=== PATIENT | male | born 1950 | race Caucasian/White ===

== ENCOUNTER 2023-03-01 17:02 | Emergency (ER) | payer OTHER ==
--- OUTSIDE RECORDS SUMMARY | 2023-03-01 17:07 | XMS REPORT | Continuity of Care Document ---
:1950 Author Organization [facility] t Address [address] [place] [id number] Care Team Providers Name Role Phone SHERRY COLINDRES Primary Care Physician Unavailable Ayaan GARCIA, Gage Okeefe Attending Clinician Unavailable LIZZ PARTIDA Attending Clinician Unavailable Doctor Unassigned, Short Attending Clinician Unavailable LUNA ORTEGA Attending Clinician Unavailable MELODY VILLA Attending Clinician Unavailable Melody Villa MD Attending Clinician Lizz Partida MD Attending Clinician 1, [facility] Bed Attending Clinician Unavailable Juan Pablo Adams MD Attending Clinician JUAN PABLO ADAMS Attending Clinician Unavailable JUAN PABLO ADAMS Attending Clinician Unavailable 2, [facility] Attending Clinician Unavailable RADIOLOGY Attending Clinician Unavailable Radiology Attending Clinician Unavailable Pob, [facility] Main Attending Clinician Unavailable Sherry Colindres DO Attending Clinician 1, [facility] Attending Clinician Unavailable AMELIE ERNANDEZ Attending Clinician Unavailable , [facility] Room 1 - Attending Clinician Unavailable Luna Ortega DO Attending Clinician Pankaj Stockton MD Attending Clinician PANKAJ STOCKTON Attending Clinician Unavailable Prachi Butcher Attending Clinician Yuval CREWS, Andres Attending Clinician Danilo Danielle Anavella Attending Clinician Jodi Headley Attending Clinician LUNA ORTEGA Admitting Clinician Unavailable MELODY IVLLA Mervat Admitting Clinician Unavailable Frantz Danielle Anav Admitting Clinician Unavailable Yuval CREWS, Andres Admitting Clinician Payers Payer Name Policy Type Policy Number Effective Date Expiration Date S sonali LOPEZ/[employer] [id number] 2019 MEDICARE ADVANTAGE 00:00:00 nDreams [id number] (MEDICARE 00:00:00 REPLACEMENT HMO) [employer] MEDICARE [id number] 2020 00:00:00 [id number] Problems Condition Condition Condition Status Onset Resolution Last Treating Co mments Source Name Details Category Date Date Treatment Clinician Date Stage 3 Stage 3 Disease Active Univers chronic chronic 4- ity of kidney kidney 00:00: [place] disease, disease, 00 Medica l unspecifie unspecifie Br anch d whether d whether stage 3a stage 3a or 3b CKD or 3b CKD PAD PAD Disease Active Univers (periphera (periphera 5-04 it y of l artery l artery 00:00: [place] disease) disease) 00 Medica l Branch Chronic Chronic Disease Active Univers heart heart 5-04 ity of failure failure 00:00: [place] with with 00 Medical preserved preserved Bran ch ejection ejection fraction fraction CAD CAD Disease Active Univers (coronary (coronary 8-13 ity of artery artery 00:00: [place] disease) disease) 00 Medica l of artery of artery Bran ch bypass bypass graft graft Blood in Blood in Disease Active Overview: Un alan stool stool 5-23 Formattin ity of 00:00: g of this 00 note Medical might be Branch different from the original. Added automatic ally from request for surgery [id number] Esophageal Esophageal Disease Active Overview : Univers reflux reflux 5-13 Formattin ity of 00:00: g of this 00 note Medical might be Branch different from the original. Added automatic ally from request for surgery [id number] Rectal Rectal Disease Active Overview: Univer s bleeding bleeding 5-13 Formattin ity of 00:00: g of this 00 note Medical might be Branch different from the original. Added automatic ally from request for surgery [id number] Frequent Frequent Disease Active Unive rs PVCs PVCs - ity of 00:00: [place] 00 Medical Branch Coronary Coronary Disease Active Unive rs artery artery - ity of disease disease 00:00: [place] involving involving [address] [facility] coronary coronary artery of artery [facility] heart with heart with angina angina pectoris pectoris Diverticul Diverticul Disease Active U nivers itis itis 01-23 ity of 00:00: [place] 00 Medical Branch NSVT NSVT Disease Active Univers (nonsustai (nonsustai 01-23 it y of rajwinder rajwinder 00:00: [place] ventricula ventricula 00 Me dical r r Branch tachycardi tachycardi a) a) Frequent Frequent Disease Active Unive rs PVCs PVCs 01-23 ity of 00:00: [place] 00 Medical Branch Essential Essential Disease Active Uni vers hypertensi hypertensi - it y of on on 00:00: [place] Medical Branch Bradycardi Bradycardi Disease Active U nivers a a - ity of 00:00: [place] 00 Medical Branch Coronary Coronary Disease Active Unive rs artery artery 01-23 ity of disease disease 00:00: [place] involving involving [address] [facility] coronary coronary artery of artery [facility] heart with heart with angina angina pectoris pectoris History of History of Disease Active U nivers CVA CVA 1-01 ity of (cerebrova [place]cerebrova [place] scular scular 00 Medical accident) accident) Bran ch HTN HTN Disease Active Univers (hypertens (hypertens it y of ion) ion) [facility] Diabetes Diabetes Disease Active Unive rs mellitus mellitus ity of [facility] HLD HLD Disease Active Univers (hyperlipi (hyperlipi it y of demia) demia) [facility] Atrial Atrial Disease Active Univers fibrillati fibrillati it y of on on [facility] Allergies, Adverse Reactions, Alerts Allergy Allergy Status Severity Reaction(s) Onset Inactive Treating Comm ents Source Name Type Date Date Clinician NO KNOWN Drug Active Univers ALLERGIE Class ity of S [facility] Social History Social Habit Start Date Stop Date Quantity Comments Source History of tobacco Cigarette Smoker University of use [facility] Alcohol intake 2022-06-25 2022-06-25 Current University of 00:00:00 00:00:00 non-drinker of [facility] alcohol [place] (finding) Exposure to 2022-05-15 2022-05-25 Not sure [facility] SARS-CoV-2 (event) 00:00:00 23:31:00 [facility] Cigarettes smoked 2019-04-03 2019-04-03 [facility] ity of current (pack per 00:00:00 00:00:00 [facility] [place] [facility] ) - Reported Branch Cigarette 2019-04-03 2019-04-03 University of pack-years 00:00:00 00:00:00 [facility] Tobacco use and 2019-04-03 2019-04-03 Smokeless Universit y of exposure 00:00:00 00:00:00 tobacco [facility]user [facility] Sex Assigned At [birth year] Universit y of 00:00:00 00:00:00 [facility] Smoking Status Start Date Stop Date Source Ex-smoker 2019-04-03 00:00:00 2019-04-03 00:00:00 Universi ty [facility] Medications Ordered Filled Start Stop Current Ordering Indication Dosage Frequency Signature Comments Components Source Medication Medication Date Date Medication? Clinician (SIG) Name Name iopamidol 2021- No [id number] 65mL 65 mL, Univers (ISOVUE 05-26 Intravenou ity o f 370-500 mL) 08:15: 08:15 s, ONCE, 1 [place] injection 00 :00 dose, On Medica l 65 mL 05/26/22 Branch at 0315, Routine amoxicillin Yes [id number] 875mg Take 1 Univers 875 mg 9- tablet by ity of tablet 00:00: mouth in [place] 00 the Medical morning Branch and 1 tablet in the evening. amoxicillin Yes [id number] 875mg Take 1 Univers 875 mg 9- tablet by ity of tablet 00:00: mouth in [place] 00 the Medical morning Branch and 1 tablet in the evening. amoxicillin 2022-0 Yes [id number] 875mg Take 1 Univers 875 mg 9-02 tablet by ity of tablet 00:00: mouth in [place] 00 the Medical morning Branch and 1 tablet in the evening. amoxicillin 2022-0 Yes [id number] 875mg Take 1 Univers 875 mg 9-02 tablet by ity of tablet 00:00: mouth in [place] 00 the Medical morning Branch and 1 tablet in the evening. amoxicillin 2022-0 Yes [id number] 875mg Take 1 Univers 875 mg 9-02 tablet by ity of tablet 00:00: mouth in [place] 00 the Medical morning Branch and 1 tablet in the evening. furosemide 2022-0 Yes 20mg Take 1 Unive rs 20 mg 3-14 tablet by ity of tablet 00:00: mouth [place] 00 daily. Medical Branch furosemide 2022-0 Yes 20mg Take 1 Unive rs 20 mg 3-14 tablet by ity of tablet 00:00: mouth [place] 00 daily. Medical Branch furosemide 2022-0 Yes 20mg Take 1 Unive rs 20 mg 3-14 tablet by ity of tablet 00:00: mouth [place] 00 daily. Medical Branch furosemide 2022-0 Yes 20mg Take 1 Unive rs 20 mg 3-14 tablet by ity of tablet 00:00: mouth [place] 00 daily. Medical Branch furosemide 2022-0 Yes 20mg Take 1 Unive rs 20 mg 3-14 tablet by ity of tablet 00:00: mouth [place] 00 daily. Medical Branch furosemide 2022-0 Yes 20mg Take 1 Unive rs 20 mg 3-14 tablet by ity of tablet 00:00: mouth [place] 00 daily. Medical Branch furosemide 2022-0 Yes 20mg Take 1 Unive rs 20 mg 3-14 tablet by ity of tablet 00:00: mouth [place] 00 daily. Medical Branch furosemide 2022-0 Yes 20mg Take 1 Unive rs 20 mg 3-14 tablet by ity of tablet 00:00: mouth [place] 00 daily. Medical Branch furosemide 2022-0 Yes 20mg Take 1 Unive rs 20 mg 3-14 tablet by ity of tablet 00:00: mouth [place] 00 daily. Medical Branch furosemide 2022-0 Yes 20mg Take 1 Unive rs 20 mg 3-14 tablet by ity of tablet 00:00: mouth [place] 00 daily. Medical Branch furosemide 2022-0 Yes 20mg Take 1 Unive rs 20 mg 3-14 tablet by ity of tablet 00:00: mouth [place] 00 daily. Medical Branch furosemide 2022-0 Yes 20mg Take 1 Unive rs 20 mg 3-14 tablet by ity of tablet 00:00: mouth [place] 00 daily. Medical Branch furosemide 2022-0 Yes 20mg Take 1 Unive rs 20 mg 3-14 tablet by ity of tablet 00:00: mouth [place] 00 daily. Medical Branch furosemide 2022-0 Yes 20mg Take 1 Unive rs 20 mg 3-14 tablet by ity of tablet 00:00: mouth [place] 00 daily. Medical Branch aMILoride 5 2020-0 Yes 5mg Take 1 Univ ers mg tablet 5-05 tablet by ity o f 00:00: mouth [place] 00 daily. Medical Branch aMILoride 5 2020-0 Yes 5mg Take 1 Univ ers mg tablet 5-05 tablet by ity o f 00:00: mouth [place] 00 daily. Medical Branch aMILoride 5 2020-0 Yes 5mg Take 1 Univ ers mg tablet 5-05 tablet by ity o f 00:00: mouth [place] 00 daily. Medical Branch aMILoride 5 2020-0 Yes 5mg Take 1 Univ ers mg tablet 5-05 tablet by ity o f 00:00: mouth [place] 00 daily. Medical Branch aMILoride 5 2020-0 Yes 5mg Take 1 Univ ers mg tablet 5-05 tablet by ity o f 00:00: mouth [place] 00 daily. Medical Branch aMILoride 5 2020-0 Yes 5mg Take 1 Univ ers mg tablet 5-05 tablet by ity o f 00:00: mouth [place] 00 daily. Medical Branch aMILoride 5 2020-0 Yes 5mg Take 1 Univ ers mg tablet 5-05 tablet by ity o f 00:00: mouth [place] 00 daily. Medical Branch aMILoride 5 2020-0 Yes 5mg Take 1 Univ ers mg tablet 5-05 tablet by ity o f 00:00: mouth [place] 00 daily. Medical Branch aMILoride 5 1-0 Yes 5mg Take 1 Univ ers mg tablet 5-05 tablet by ity o f 00:00: mouth [place] 00 daily. Medical Branch aMILoride 5 2020-0 Yes 5mg Take 1 Univ ers mg tablet 5-05 tablet by ity o f 00:00: mouth [place] 00 daily. Medical Branch aMILoride 5 Yes 5mg Take 1 Univ ers mg tablet 5-05 tablet by ity o f 00:00: mouth [place] 00 daily. Medical Branch aMILoride 5 Yes 5mg Take 1 Univ ers mg tablet 5-05 tablet by ity o f 00:00: mouth 00 daily. Medical Branch aMILoride 5 Yes 5mg Take 1 Univ ers mg tablet 5-05 tablet by ity o f 00:00: mouth [place] 00 daily. Medical Branch aMILoride 5 Yes 5mg Take 1 Univ ers mg tablet 5-05 tablet by ity o f 00:00: mouth [place] 00 daily. Medical Branch fluticasone Yes 1{spray Use 1 Un aaln 50 5-04 } Ubly in ity of mcg/actuati 11:09: each [place] on nasal 43 nostril Medical spray daily. Branch glipiZIDE 5 Yes 5mg Take 5 mg U nivers mg tablet 5-04 by mouth ity of 11:09: daily. [place] [address] Medical Branch omeprazole Yes 40mg Take 40 mg U nivers 40 mg 5-04 by mouth ity of capsule 11:09: daily. [place] [address] Medical Branch sucralfate Yes 1g Take 1 g Uni vers 1 gram 5-04 by mouth ity of tablet 11:09: before [place] [address] meals and Medical at [place] bedtime. traZODONE Yes 50mg Take 50 mg Un alan 50 mg 5-04 by mouth ity of tablet 11:09: at [place] [address] bedtime. Medical Branch dulaglutide Yes inject Univ ers (TRULICITY) 5-04 under the ity of 0.75 mg/0.5 11:09: skin. [facility] DOCUS[facility] Yes Take by Univer s SODIUM ORAL 5-04 mouth ity of 11:09: daily. [place] [address] Medical Branch aspirin 81 Yes 81mg Take 81 mg U nivers mg chewable 5-04 by mouth ity of tablet 11:09: daily. [place] [address] Medical Branch lidocain/me Yes 2{patch Apply 2 Univers -salicyl/ca 5-04 } Patches to it y of ps/menth 11:09: area(s) [place] ( daily. Medical MEDX-PATCH Branch WITH LIDOCAINE TOPICAL) fluticasone Yes 1{spray Use 1 Un alan 50 5-04 } Ubly in ity of mcg/actuati 11:09: each [place] on nasal 43 nostril Medical spray daily. Branch glipiZIDE 5 Yes 5mg Take 5 mg U nivers mg tablet 5-04 by mouth ity of 11:09: daily. [place] [address] Medical Branch omeprazole Yes 40mg Take 40 mg U nivers 40 mg 5-04 by mouth ity of capsule 11:09: daily. [place] [address] Medical Branch sucralfate Yes 1g Take 1 g Uni vers 1 gram 5-04 by mouth ity of tablet 11:09: before [place] [address] meals and Medical at [place] bedtime. traZODONE Yes 50mg Take 50 mg Un alan 50 mg 5-04 by mouth ity of tablet 11:09: at [place] [address] bedtime. Medical Branch dulaglutide Yes inject Univ ers (TRULICITY) 5-04 under the ity of 0.75 mg/0.5 11:09: skin. [facility] DOCUSATE Yes Take by Univer s SODIUM ORAL 5-04 mouth ity of 11:09: daily. [place] [address] Medical Branch aspirin 81 Yes 81mg Take 81 mg U nivers mg chewable 5-04 by mouth ity of tablet 11:09: daily. [place] [address] Medical [place] lidocain/me Yes 2{patch Apply 2 Univers -salicyl/ca 5-04 } Patches to it y of ps/menth 11:09: area(s) [place] ( daily. Medical MEDX-PATCH Branch WITH LIDOCAINE TOPICAL) fluticasone Yes 1{spray Use 1 Un alan 50 5-04 } Ubly in ity of mcg/actuati 11:09: each [place] on nasal 43 nostril Medical spray daily. Branch glipiZIDE 5 Yes 5mg Take 5 mg U nivers mg tablet 5-04 by mouth ity of 11:09: daily. [place] [address] Medical [place] omeprazole 0 Yes 40mg Take 40 mg U nivers 40 mg 5-04 by mouth ity of capsule 11:09: daily. [place] [address] Medical [place] sucralfate Yes 1g Take 1 g Uni vers 1 gram 5-04 by mouth ity of tablet 11:09: before [place] [address] meals and Medical at Branch bedtime. traZODONE Yes 50mg Take 50 mg Un alan 50 mg 5-04 by mouth ity of tablet 11:09: at [place] [address] bedtime. Medical Branch dulaglutide Yes inject Univ ers (TRULICITY) 5-04 under the ity of 0.75 mg/0.5 11:09: skin. [facility] DOCUSATE Yes Take by Univer s SODIUM ORAL 5-04 mouth ity of 11:09: daily. [address] aspirin 81 0 Yes 81mg Take 81 mg U nivers mg chewable 5-04 by mouth ity of tablet 11:09: daily. [address] lidocain/me Yes 2{patch Apply 2 Univers -salicyl/ca 5-04 } Patches to it y of ps/menth 11:09: area(s) [place] ([facility] daily. Medical MEDX-PATCH Branch WITH LIDOCAINE TOPICAL) fluticasone Yes 1{spray Use 1 Un alan 50 5-04 } Ubly in ity of mcg/actuati 11:09: each [place] on nasal 43 nostril Medical spray daily. Branch glipiZIDE 5 Yes 5mg Take 5 mg U nivers mg tablet 5-04 by mouth ity of 11:09: daily. [address] omeprazole Yes 40mg Take 40 mg U nivers 40 mg 5-04 by mouth ity of capsule 11:09: daily. [address] sucralfate Yes 1g Take 1 g Uni vers 1 gram 5-04 by mouth ity of tablet 11:09: before [place] [address] meals and Medical at [place] bedtime. traZODONE Yes 50mg Take 50 mg Un alan 50 mg 5-04 by mouth ity of tablet 11:09: at [place] [address] bedtime. Medical Branch dulaglutide Yes inject Univ ers (TRULICITY) 5-04 under the ity of 0.75 mg/0.5 11:09: skin. [facility] DOCUSATE Yes Take by Univer s SODIUM ORAL 5-04 mouth ity of 11:09: daily. [address] Branch aspirin 81 Yes 81mg Take 81 mg U nivers mg chewable 5-04 by mouth ity of tablet 11:09: daily. [address] Branch lidocain/me Yes 2{patch Apply 2 Univers -salicyl/ca 5-04 } Patches to it y of ps/menth 11:09: area(s) [place] ( daily. Medical MEDX-PATCH Branch WITH LIDOCAINE TOPICAL) fluticasone Yes 1{spray Use 1 Un alan 50 5-04 } Ubly in ity of mcg/actuati 11:09: each [place] on nasal 43 nostril Medical spray daily. Branch glipiZIDE 5 Yes 5mg Take 5 mg U nivers mg tablet 5-04 by mouth ity of 11:09: daily. [address] omeprazole Yes 40mg Take 40 mg U nivers 40 mg 5-04 by mouth ity of capsule 11:09: daily. [address] Branch sucralfate Yes 1g Take 1 g Uni vers 1 gram 5-04 by mouth ity of tablet 11:09: before [place] [address] meals and Medical at [place] bedtime. traZODONE Yes 50mg Take 50 mg Un alan 50 mg 5-04 by mouth ity of tablet 11:09: at [place] [address] bedtime. Medical Branch dulaglutide Yes inject Univ ers (TRULICITY) 5-04 under the ity of 0.75 mg/0.5 11:09: skin. [place] [address] Medical Branch DOCUSATE Yes Take by Univer s SODIUM ORAL 5-04 mouth ity of 11:09: daily. [address] Branch aspirin 81 Yes 81mg Take 81 mg U nivers mg chewable 5-04 by mouth ity of tablet 11:09: daily. [address] lidocain/me Yes 2{patch Apply 2 Univers -salicyl/ca 5-04 } Patches to it y of ps/menth 11:09: area(s) [place] ( daily. Medical MEDX-PATCH Branch WITH LIDOCAINE TOPICAL) fluticasone Yes 1{spray Use 1 Un alan 50 5-04 } Ubly in ity of mcg/actuati 11:09: each [place] on nasal 43 nostril Medical spray daily. Branch glipiZIDE 5 Yes 5mg Take 5 mg U nivers mg tablet 5-04 by mouth ity of 11:09: daily. [place] [address] Medical Branch omeprazole 0 Yes 40mg Take 40 mg U nivers 40 mg 5-04 by mouth ity of capsule 11:09: daily. [place] [address] Medical Branch sucralfate Yes 1g Take 1 g Uni vers 1 gram 5-04 by mouth ity of tablet 11:09: before [place] [address] meals and Medical at [place] bedtime. traZODONE Yes 50mg Take 50 mg Un alan 50 mg 5-04 by mouth ity of tablet 11:09: at [place] [address] bedtime. Medical Branch dulaglutide Yes inject Univ ers (TRULICITY) 5-04 under the ity of 0.75 mg/0.5 11:09: skin. [facility] DOCUSATE Yes Take by Univer s SODIUM ORAL 5-04 mouth ity of 11:09: daily. [address] aspirin 81 Yes 81mg Take 81 mg U nivers mg chewable 5-04 by mouth ity of tablet 11:09: daily. [address] lidocain/me Yes 2{patch Apply 2 Univers -salicyl/ca 5-04 } Patches to it y of ps/menth 11:09: area(s) [place] ( daily. Medical MEDX-PATCH Branch WITH LIDOCAINE TOPICAL) fluticasone Yes 1{spray Use 1 Un alan 50 5-04 } Ubly in ity of mcg/actuati 11:09: each [place] on nasal 43 nostril Medical spray daily. Branch glipiZIDE 5 Yes 5mg Take 5 mg U nivers mg tablet 5-04 by mouth ity of 11:09: daily. [address] omeprazole 0 Yes 40mg Take 40 mg U nivers 40 mg 5-04 by mouth ity of capsule 11:09: daily. [address] sucralfate Yes 1g Take 1 g Uni vers 1 gram 5-04 by mouth ity of tablet 11:09: before [place] [address] meals and Medical at [place] bedtime. traZODONE Yes 50mg Take 50 mg Un alan 50 mg 5-04 by mouth ity of tablet 11:09: at [place] [address] bedtime. Medical Branch dulaglutide Yes inject Univ ers (TRULICITY) 5-04 under the ity of 0.75 mg/0.5 11:09: skin. [facility] DOCUSATE Yes Take by Univer s SODIUM ORAL 5-04 mouth ity of 11:09: daily. [address] aspirin 81 Yes 81mg Take 81 mg U nivers mg chewable 5-04 by mouth ity of tablet 11:09: daily. [address] lidocain/me Yes 2{patch Apply 2 Univers -salicyl/ca 5-04 } Patches to it y of ps/menth 11:09: area(s) [place] ( daily. Medical MEDX-PATCH Branch WITH LIDOCAINE TOPICAL) fluticasone Yes 1{spray Use 1 Un alan 50 5-04 } Ubly in ity of mcg/actuati 11:09: each [place] on nasal 43 nostril Medical spray daily. Branch glipiZIDE 5 Yes 5mg Take 5 mg U nivers mg tablet 5-04 by mouth ity of 11:09: daily. [address] omeprazole Yes 40mg Take 40 mg U nivers 40 mg 5-04 by mouth ity of capsule 11:09: daily. [address] sucralfate Yes 1g Take 1 g Uni vers 1 gram 5-04 by mouth ity of tablet 11:09: before [place] [address] meals and Medical at [place] bedtime. traZODONE Yes 50mg Take 50 mg Un alan 50 mg 5-04 by mouth ity of tablet 11:09: at [place] [address] bedtime. Medical Branch dulaglutide Yes inject Univ ers (TRULICITY) 5-04 under the ity of 0.75 mg/0.5 11:09: skin. [facility] Medical Branch DOCUSATE Yes Take by Univer s SODIUM ORAL 5-04 mouth ity of 11:09: daily. [address] Branch aspirin 81 Yes 81mg Take 81 mg U nivers mg chewable 5-04 by mouth ity of tablet 11:09: daily. [address] Branch lidocain/me Yes 2{patch Apply 2 Univers -salicyl/ca 5-04 } Patches to it y of ps/menth 11:09: area(s) [place] ( daily. Medical MEDX-PATCH Branch WITH LIDOCAINE TOPICAL) fluticasone Yes 1{spray Use 1 Un alan 50 5-04 } Ubly in ity of mcg/actuati 11:09: each [place] on nasal 43 nostril Medical spray daily. Branch glipiZIDE 5 Yes 5mg Take 5 mg U nivers mg tablet 5-04 by mouth ity of 11:09: daily. [address] omeprazole Yes 40mg Take 40 mg U nivers 40 mg 5-04 by mouth ity of capsule 11:09: daily. [address] sucralfate Yes 1g Take 1 g Uni vers 1 gram 5-04 by mouth ity of tablet 11:09: before [place] [address] meals and Medical at [place] bedtime. traZODONE Yes 50mg Take 50 mg Un alan 50 mg 5-04 by mouth ity of tablet 11:09: at [place] [address] bedtime. Medical Branch dulaglutide Yes inject Univ ers (TRULICITY) 5-04 under the ity of 0.75 mg/0.5 11:09: skin. [place] [address] Medical Branch DOCUSATE Yes Take by Univer s SODIUM ORAL 5-04 mouth ity of 11:09: daily. [address] aspirin 81 Yes 81mg Take 81 mg U nivers mg chewable 5-04 by mouth ity of tablet 11:09: daily. [address] lidocain/me Yes 2{patch Apply 2 Univers -salicyl/ca 5-04 } Patches to it y of ps/menth 11:09: area(s) [place] ( daily. Medical MEDX-PATCH Branch WITH LIDOCAINE TOPICAL) fluticasone Yes 1{spray Use 1 Un alan 50 5-04 } Ubly in ity of mcg/actuati 11:09: each [place] on nasal 43 nostril Medical spray daily. Branch glipiZIDE 5 Yes 5mg Take 5 mg U nivers mg tablet 5-04 by mouth ity of 11:09: daily. [place] [address] Medical [place] omeprazole 0 Yes 40mg Take 40 mg U nivers 40 mg 5-04 by mouth ity of capsule 11:09: daily. [place] [address] Medical Branch sucralfate Yes 1g Take 1 g Uni vers 1 gram 5-04 by mouth ity of tablet 11:09: before [place] [address] meals and Medical at Branch bedtime. traZODONE Yes 50mg Take 50 mg Un alan 50 mg 5-04 by mouth ity of tablet 11:09: at [place] [address] bedtime. Medical Branch dulaglutide Yes inject Univ ers (TRULICITY) 5-04 under the ity of 0.75 mg/0.5 11:09: skin. [facility] DOCUSATE Yes Take by Univer s SODIUM ORAL 5-04 mouth ity of 11:09: daily. [place] [address] Medical [place] aspirin 81 Yes 81mg Take 81 mg U nivers mg chewable 5-04 by mouth ity of tablet 11:09: daily. [place] [address] Medical [place] lidocain/me Yes 2{patch Apply 2 Univers -salicyl/ca 5-04 } Patches to it y of ps/menth 11:09: area(s) [place] ( daily. Medical MEDX-PATCH Branch WITH LIDOCAINE TOPICAL) fluticasone Yes 1{spray Use 1 Un alan 50 5-04 } Ubly in ity of mcg/actuati 11:09: each [place] on nasal 43 nostril Medical spray daily. Branch glipiZIDE 5 Yes 5mg Take 5 mg U nivers mg tablet 5-04 by mouth ity of 11:09: daily. [place] [address] Medical [place] omeprazole 0 Yes 40mg Take 40 mg U nivers 40 mg 5-04 by mouth ity of capsule 11:09: daily. [address] sucralfate Yes 1g Take 1 g Uni vers 1 gram 5-04 by mouth ity of tablet 11:09: before [place] [address] meals and Medical at [place] bedtime. traZODONE Yes 50mg Take 50 mg Un alan 50 mg 5-04 by mouth ity of tablet 11:09: at [place] [address] bedtime. Medical Branch dulaglutide Yes inject Univ ers (TRULICITY) 5-04 under the ity of 0.75 mg/0.5 11:09: skin. [address] DOCUSATE Yes Take by Univer s SODIUM ORAL 5-04 mouth ity of 11:09: daily. [address] aspirin 81 Yes 81mg Take 81 mg U nivers mg chewable 5-04 by mouth ity of tablet 11:09: daily. [address] lidocain/me Yes 2{patch Apply 2 Univers -salicyl/ca 5-04 } Patches to it y of ps/menth 11:09: area(s) [place] ([facility] 43 daily. Medical MEDX-PATCH Branch WITH LIDOCAINE TOPICAL) fluticasone Yes 1{spray Use 1 Un alan 50 5-04 } Ubly in ity of mcg/actuati 11:09: each [place] on nasal 43 nostril Medical spray daily. Branch glipiZIDE 5 Yes 5mg Take 5 mg U nivers mg tablet 5-04 by mouth ity of 11:09: daily. [address] omeprazole Yes 40mg Take 40 mg U nivers 40 mg 5-04 by mouth ity of capsule 11:09: daily. [address] sucralfate Yes 1g Take 1 g Uni vers 1 gram 5-04 by mouth ity of tablet 11:09: before [place] [address] meals and [facility] [place] bedtime. traZODONE Yes 50mg Take 50 mg Un alan 50 mg 5-04 by mouth ity of tablet 11:09: at [place] [address] bedtime. Medical Branch dulaglutide Yes inject Univ ers (TRULICITY) 5-04 under the ity of 0.75 mg/0.5 11:09: skin. [address] DOCUSATE Yes Take by Univer s SODIUM ORAL 5-04 mouth ity of 11:09: daily. [address] Branch aspirin 81 Yes 81mg Take 81 mg U nivers mg chewable 5-04 by mouth ity of tablet 11:09: daily. [address] lidocain/me Yes 2{patch Apply 2 Univers -salicyl/ca 5-04 } Patches to it y of ps/menth 11:09: area(s) [place] ( daily. Medical MEDX-PATCH Branch WITH LIDOCAINE TOPICAL) fluticasone Yes 1{spray Use 1 Un alan 50 5-04 } Ubly in ity of mcg/actuati 11:09: each [place] on nasal 43 nostril Medical spray daily. Branch glipiZIDE 5 Yes 5mg Take 5 mg U nivers mg tablet 5-04 by mouth ity of 11:09: daily. [address] omeprazole Yes 40mg Take 40 mg U nivers 40 mg 5-04 by mouth ity of capsule 11:09: daily. [address] sucralfate Yes 1g Take 1 g Uni vers 1 gram 5-04 by mouth ity of tablet 11:09: before [place] [address] meals and [facility] [place] bedtime. traZODONE Yes 50mg Take 50 mg Un alan 50 mg 5-04 by mouth ity of tablet 11:09: at [place] [address] bedtime. Medical Branch dulaglutide Yes inject Univ ers (TRULICITY) 5-04 under the ity of 0.75 mg/0.5 11:09: skin. [address] Branch DOCUSATE Yes Take by Univer s SODIUM ORAL 5-04 mouth ity of 11:09: daily. [address] aspirin 81 Yes 81mg Take 81 mg U nivers mg chewable 5-04 by mouth ity of tablet 11:09: daily. [address] lidocain/me Yes 2{patch Apply 2 Univers -salicyl/ca 5-04 } Patches to it y of ps/menth 11:09: area(s) [place] ( daily. Medical MEDX-PATCH Branch WITH LIDOCAINE TOPICAL) fluticasone Yes 1{spray Use 1 Un alan 50 5-04 } Ubly in ity of mcg/actuati 11:09: each [place] on nasal 43 nostril Medical spray daily. Branch glipiZIDE 5 Yes 5mg Take 5 mg U nivers mg tablet 5-04 by mouth ity of 11:09: daily. [address] omeprazole Yes 40mg Take 40 mg U nivers 40 mg 5-04 by mouth ity of capsule 11:09: daily. [address] sucralfate Yes 1g Take 1 g Uni vers 1 gram 5-04 by mouth ity of tablet 11:09: before [place] [address] meals and [facility] [place] bedtime. traZODONE Yes 50mg Take 50 mg Un alan 50 mg 5-04 by mouth ity of tablet 11:09: at [place] [address] bedtime. Medical Branch dulaglutide Yes inject Univ ers (TRULICITY) 5-04 under the ity of 0.75 mg/0.5 11:09: skin. [facility] [address] Branch DOCUSATE Yes Take by Univer s SODIUM ORAL 5-04 mouth ity of 11:09: daily. [address] aspirin 81 Yes 81mg Take 81 mg U nivers mg chewable 5-04 by mouth ity of tablet 11:09: daily. [address] lidocain/me Yes 2{patch Apply 2 Univers -salicyl/ca 5-04 } Patches to it y of ps/menth 11:09: area(s) [place] ([facility] daily. Medical MEDX-PATCH Branch WITH LIDOCAINE TOPICAL) LANCETS & 2019-09 Yes Univers BLOOD 1-04 ity of GLUCOSE 11:27: [place] STRIPS [address] Branch LANCETS & 2019-09 Yes Univers BLOOD 1-04 ity of GLUCOSE 11:27: [place] STRIPS [address] LANCETS & 2019-09 Yes Univers BLOOD 1-04 ity of GLUCOSE 11:27: [place] STRIPS [address] LANCETS & 2019-09 Yes Univers BLOOD 1-04 ity of GLUCOSE 11:27: [place] STRIPS [address] LANCETS & 2019-09 Yes Univers BLOOD 1-04 ity of GLUCOSE 11:27: [place] STRIPS [address] Branch LANCETS & 2019- Yes Univers BLOOD 1-04 ity of GLUCOSE 11:27: [place] STRIPS [address] LANCETS & 2019- Yes Univers BLOOD 1-04 ity of GLUCOSE 11:27: [place] STRIPS [address] LANCETS & 2019- Yes Univers BLOOD 1-04 ity of GLUCOSE 11:27: [place] STRIPS [address] Branch LANCETS & 2019- Yes Univers BLOOD 1-04 ity of GLUCOSE 11:27: [place] STRIPS [address] Branch LANCETS & 2019- Yes Univers BLOOD 1-04 ity of GLUCOSE 11:27: [place] STRIPS [address] LANCETS & 2019- Yes Univers BLOOD 1-04 ity of GLUCOSE 11:27: [place] STRIPS [address] LANCETS & 2019-09 Yes Univers BLOOD 1-04 ity of GLUCOSE 11:27: [place] STRIPS [address] LANCETS & 2019-09 Yes Univers BLOOD 1-04 ity of GLUCOSE 11:27: [place] STRIPS [address] LANCETS & 2019-09 Yes Univers BLOOD 1-04 ity of GLUCOSE 11:27: [place] STRIPS [address] Branch apixaban 5 2020-0 Yes 1358 5mg Take 1 Unive rs mg tablet 2-04 tablet by ity o f 00:00: mouth 2 (two) Medical times Branch daily. Indication s: atrial fibrillati on apixaban 5 2020-0 Yes 1358 5mg Take 1 Unive rs mg tablet 2-04 tablet by ity o f 00:00: mouth 2 (two) Medical times Branch daily. Indication s: atrial fibrillati on apixaban 5 2020-0 Yes 1358 5mg Take 1 Unive rs mg tablet 2-04 tablet by ity o f 00:00: mouth 2 (two) Medical times Branch daily. Indication s: atrial fibrillati on apixaban 5 2020-0 Yes 1358 5mg Take 1 Unive rs mg tablet 2-04 tablet by ity o f 00:00: mouth 2 (two) Medical times Branch daily. Indication s: atrial fibrillati on apixaban 5 2020-0 Yes 1358 5mg Take 1 Unive rs mg tablet 2-04 tablet by ity o f 00:00: mouth 2 [place] 00 (two) Medical times Branch daily. Indication s: atrial fibrillati on apixaban 5 2020-0 Yes 1358 5mg Take 1 Unive rs mg tablet 2-04 tablet by ity o f 00:00: mouth 2 (two) Medical times Branch daily. Indication s: atrial fibrillati on apixaban 5 2020-0 Yes 1358 5mg Take 1 Unive rs mg tablet 2-04 tablet by ity o f 00:00: mouth 2 (two) Medical times Branch daily. Indication s: atrial fibrillati on apixaban 5 2020-0 Yes 1358 5mg Take 1 Unive rs mg tablet 2-04 tablet by ity o f 00:00: mouth 2 (two) Medical times Branch daily. Indication s: atrial fibrillati on apixaban 5 2020-0 Yes 1358 5mg Take 1 Unive rs mg tablet 2-04 tablet by ity o f 00:00: mouth 2 (two) Medical times Branch daily. Indication s: atrial fibrillati on apixaban 5 2020-0 Yes 1358 5mg Take 1 Unive rs mg tablet 2-04 tablet by ity o f 00:00: mouth 2 (two) Medical times Branch daily. Indication s: atrial fibrillati on apixaban 5 2020-0 Yes 1358 5mg Take 1 Unive rs mg tablet 2-04 tablet by ity o f 00:00: mouth 2 (two) Medical times Branch daily. Indication s: atrial fibrillati on apixaban 5 2020-0 Yes 1358 5mg Take 1 Unive rs mg tablet 2-04 tablet by ity o f 00:00: mouth 2 (two) Medical times Branch daily. Indication s: atrial fibrillati on apixaban 5 2020-0 Yes 1358 5mg Take 1 Unive rs mg tablet 2-04 tablet by ity o f 00:00: mouth 2 00 (two) Medical times Branch daily. Indication s: atrial fibrillati on apixaban 5 2020-0 Yes 1358 5mg Take 1 Unive rs mg tablet 2-04 tablet by ity o f 00:00: mouth 2 00 (two) Medical times Branch daily. Indication s: atrial fibrillati on metoprolol 2019-0 Yes [id number] 50mg Take 1 Univers tartrate 50 8-16 tablet by ity of mg tablet 00:00: mouth 2 (two) Medical times Branch daily. atorvastati 2019-0 Yes [id number] 40mg Take 1 Univers n 40 mg 8-16 tablet by ity of tablet 00:00: mouth at [place] bedtime. Medical Branch polyethylen 0 Yes 17g Take 17 g U nivers e glycol 17 8-16 by mouth 2 it y of gram/dose 00:00: (two) [place] powder 00 times Medical daily as Branch needed for Constipati on. metoprolol 2018-0 Yes [id number] 50mg Take 1 Univers tartrate 50 8-16 tablet by ity of mg tablet 00:00: mouth 2 (two) Medical times Branch daily. atorvastati 0 Yes [id number] 40mg Take 1 Univers n 40 mg 8-16 tablet by ity of tablet 00:00: mouth at [place] bedtime. Medical Branch polyethylen Yes 17g Take 17 g U nivers e glycol 17 8-16 by mouth 2 it y of gram/dose 00:00: (two) [place] powder 00 times Medical daily as Branch needed for Constipati on. metoprolol 2018-0 Yes [id number] 50mg Take 1 Univers tartrate 50 8-16 tablet by ity of mg tablet 00:00: mouth 2 (two) Medical times Branch daily. atorvastati 2018-0 Yes [id number] 40mg Take 1 Univers n 40 mg 8-16 tablet by ity of tablet 00:00: mouth at [place] bedtime. Medical Branch polyethylen 0 Yes 17g Take 17 g U nivers e glycol 17 8-16 by mouth 2 it y of gram/dose 00:00: (two) [place] powder 00 times Medical daily as Branch needed for Constipati on. metoprolol 2018-0 Yes [id number] 50mg Take 1 Univers tartrate 50 8-16 tablet by ity of mg tablet 00:00: mouth 2 (two) Medical times Branch daily. atorvastati 2018-0 Yes [id number] 40mg Take 1 Univers n 40 mg 8-16 tablet by ity of tablet 00:00: mouth at [place] [address] bedtime. Medical Branch polyethylen 0 Yes 17g Take 17 g U nivers e glycol 17 8-16 by mouth 2 it y of gram/dose 00:00: (two) [place] powder 00 times Medical daily as Branch needed for Constipati on. metoprolol 0 Yes [id number] 50mg Take 1 Univers tartrate 50 8-16 tablet by ity of mg tablet 00:00: mouth 2 (two) Medical times Branch daily. atorvastati Yes [id number] 40mg Take 1 Univers n 40 mg 8-16 tablet by ity of tablet 00:00: mouth at [place] bedtime. Medical Branch polyethylen Yes 17g Take 17 g U nivers e glycol 17 8-16 by mouth 2 it y of gram/dose 00:00: (two) [place] powder 00 times Medical daily as Branch needed for Constipati on. metoprolol Yes [id number] 50mg Take 1 Univers tartrate 50 8-16 tablet by ity of mg tablet 00:00: mouth 2 (two) Medical times Branch daily. atorvastati Yes [id number] 40mg Take 1 Univers n 40 mg 8-16 tablet by ity of tablet 00:00: mouth at [place] bedtime. Medical Branch polyethylen Yes 17g Take 17 g U nivers e glycol 17 8-16 by mouth 2 it y of gram/dose 00:00: (two) [place] powder 00 times Medical daily as Branch needed for Constipati on. metoprolol 0 Yes [id number] 50mg Take 1 Univers tartrate 50 8-16 tablet by ity of mg tablet 00:00: mouth 2 (two) Medical times Branch daily. atorvastati Yes [id number] 40mg Take 1 Univers n 40 mg 8-16 tablet by ity of tablet 00:00: mouth at [place] bedtime. Medical Branch polyethylen Yes 17g Take 17 g U nivers e glycol 17 8-16 by mouth 2 it y of gram/dose 00:00: (two) [place] powder 00 times Medical daily as Branch needed for Constipati on. metoprolol 0 Yes [id number] 50mg Take 1 Univers tartrate 50 8-16 tablet by ity of mg tablet 00:00: mouth 2 (two) Medical times Branch daily. atorvastati 2018-0 Yes [id number] 40mg Take 1 Univers n 40 mg 8-16 tablet by ity of tablet 00:00: mouth at [place] bedtime. Medical Branch polyethylen Yes 17g Take 17 g U nivers e glycol 17 8-16 by mouth 2 it y of gram/dose 00:00: (two) [place] powder 00 times Medical daily as Branch needed for Constipati on. metoprolol Yes [id number] 50mg Take 1 Univers tartrate 50 8-16 tablet by ity of mg tablet 00:00: mouth 2 (two) Medical times Branch daily. atorvastati Yes [id number] 40mg Take 1 Univers n 40 mg 8-16 tablet by ity of tablet 00:00: mouth at [place] bedtime. Medical Branch polyethylen Yes 17g Take 17 g U nivers e glycol 17 8-16 by mouth 2 it y of gram/dose 00:00: (two) [place] powder 00 times Medical daily as Branch needed for Constipati on. metoprolol Yes [id number] 50mg Take 1 Univers tartrate 50 8-16 tablet by ity of mg tablet 00:00: mouth 2 (two) Medical times Branch daily. atorvastati Yes [id number] 40mg Take 1 Univers n 40 mg 8-16 tablet by ity of tablet 00:00: mouth at [place] bedtime. Medical Branch polyethylen Yes 17g Take 17 g U nivers e glycol 17 8-16 by mouth 2 it y of gram/dose 00:00: (two) [place] powder 00 times Medical daily as Branch needed for Constipati on. metoprolol 0 Yes [id number] 50mg Take 1 Univers tartrate 50 8-16 tablet by ity of mg tablet 00:00: mouth 2 (two) Medical times Branch daily. atorvastati Yes [id number] 40mg Take 1 Univers n 40 mg 8-16 tablet by ity of tablet 00:00: mouth at [place] bedtime. Medical Branch polyethylen Yes 17g Take 17 g U nivers e glycol 17 8-16 by mouth 2 it y of gram/dose 00:00: (two) [place] powder 00 times Medical daily as Branch needed for Constipati on. metoprolol Yes [id number] 50mg Take 1 Univers tartrate 50 8-16 tablet by ity of mg tablet 00:00: mouth 2 (two) Medical times Branch daily. atorvastati 2018-0 Yes [id number] 40mg Take 1 Univers n 40 mg 8-16 tablet by ity of tablet 00:00: mouth at [place] bedtime. Medical Branch polyethylen 0 Yes 17g Take 17 g U nivers e glycol 17 8-16 by mouth 2 it y of gram/dose 00:00: (two) [place] powder 00 times Medical daily as Branch needed for Constipati on. metoprolol Yes [id number] 50mg Take 1 Univers tartrate 50 8-16 tablet by ity of mg tablet 00:00: mouth 2 (two) Medical times Branch daily. atorvastati Yes [id number] 40mg Take 1 Univers n 40 mg 8-16 tablet by ity of tablet 00:00: mouth at [place] bedtime. Medical Branch polyethylen Yes 17g Take 17 g U nivers e glycol 17 8-16 by mouth 2 it y of gram/dose 00:00: (two) [place] powder 00 times Medical daily as Branch needed for Constipati on. metoprolol Yes [id number] 50mg Take 1 U nivers tartrate 50 8-16 tablet by ity of mg tablet 00:00: mouth 2 (two) Medical times Branch daily. atorvastati Yes [id number] 40mg Take 1 Univers n 40 mg 8-16 tablet by ity of tablet 00:00: mouth at [place] [address] bedtime. Medical Branch polyethylen Yes 17g Take 17 g U nivers e glycol 17 8-16 by mouth 2 it y of gram/dose 00:00: (two) [place] powder 00 times Medical daily as Branch needed for Constipati on. LOVAZA, 2018- Yes 2{capsu Take 2 Unive rs omega-3-aci 7-02 le} capsules ity of d ethyl 00:00: by mouth [place] esters, 1 00 daily. Medical gram Branch capsule LOVAZA, 2018-0 Yes 2{capsu Take 2 Unive rs omega-3-aci 7-02 le} capsules ity of d ethyl 00:00: by mouth [place] esters, 1 00 daily. Medical gram Branch capsule LOVAZA, Yes 2{capsu Take 2 Unive rs omega-3-aci 7-02 le} capsules ity of d ethyl 00:00: by mouth [place] esters, 1 00 daily. Medical gram Branch capsule LOVAZA, Yes 2{capsu Take 2 Unive rs omega-3-aci 7-02 le} capsules ity of d ethyl 00:00: by mouth [place] esters, 1 00 daily. Medical gram Branch capsule LOVAZA, Yes 2{capsu Take 2 Unive rs omega-3-aci 7-02 le} capsules ity of d ethyl 00:00: by mouth [place] esters, 1 00 daily. Medical gram Branch capsule LOVAZA, Yes 2{capsu Take 2 Unive rs omega-3-aci 7-02 le} capsules ity of d ethyl 00:00: by mouth [place] esters, 1 00 daily. Medical gram Branch capsule LOVAZA, Yes 2{capsu Take 2 Unive rs omega-3-aci 7-02 le} capsules ity of d ethyl 00:00: by mouth [place] esters, 1 00 daily. Medical gram Branch capsule LOVAZA, Yes 2{capsu Take 2 Unive rs omega-3-aci 7-02 le} capsules ity of d ethyl 00:00: by mouth [place] esters, 1 00 daily. Medical gram Branch capsule LOVAZA, Yes 2{capsu Take 2 Unive rs omega-3-aci 7-02 le} capsules ity of d ethyl 00:00: by mouth [place] esters, 1 00 daily. Medical gram Branch capsule LOVAZA, Yes 2{capsu Take 2 Unive rs omega-3-aci 7-02 le} capsules ity of d ethyl 00:00: by mouth [place] esters, 1 00 daily. Medical gram Branch capsule LOVAZA, Yes 2{capsu Take 2 Unive rs omega-3-aci 7-02 le} capsules ity of d ethyl 00:00: by mouth [place] esters, 1 00 daily. Medical gram Branch capsule LOVAZA, Yes 2{capsu Take 2 Unive rs omega-3-aci 7-02 le} capsules ity of d ethyl 00:00: by mouth [place] esters, 1 00 daily. [facility] Branch capsule LOVAZA, 2018-0 Yes 2{capsu Take 2 Unive rs omega-3-aci 7-02 le} capsules ity of d ethyl 00:00: by mouth [place] esters, 1 00 daily. [facility] Branch capsule LOVAZA, 2018-0 Yes 2{capsu Take 2 Unive rs omega-3-aci 7-02 le} capsules ity of d ethyl 00:00: by mouth [place] esters, 1 00 daily. [facility] capsule allopurinol 2018-0 Yes 300mg Take 300 U nivers 300 mg 6-08 mg by ity of tablet 00:00: mouth [place] 00 daily. [facility] Branch allopurinol 2018-0 Yes 300mg Take 300 U nivers 300 mg 6-08 mg by ity of tablet 00:00: mouth [place] 00 daily. [facility] Branch allopurinol 2018-0 Yes 300mg Take 300 U nivers 300 mg 6-08 mg by ity of tablet 00:00: mouth [place] 00 daily. [facility] Branch allopurinol 2018-0 Yes 300mg Take 300 U nivers 300 mg 6-08 mg by ity of tablet 00:00: mouth [place] 00 daily. [facility] Branch allopurinol 2018-0 Yes 300mg Take 300 U nivers 300 mg 6-08 mg by ity of tablet 00:00: mouth [place] 00 daily. [facility] Branch allopurinol 2018-0 Yes 300mg Take 300 U nivers 300 mg 6-08 mg by ity of tablet 00:00: mouth [place] 00 daily. [facility] Branch allopurinol 2018-0 Yes 300mg Take 300 U nivers 300 mg 6-08 mg by ity of tablet 00:00: mouth [place] 00 daily. [facility] Branch allopurinol 2018-0 Yes 300mg Take 300 U nivers 300 mg 6-08 mg by ity of tablet 00:00: mouth [place] 00 daily. [facility] Branch allopurinol 2018-0 Yes 300mg Take 300 U nivers 300 mg 6-08 mg by ity of tablet 00:00: mouth [place] 00 daily. [facility] Branch allopurinol 2018-0 Yes 300mg Take 300 U nivers 300 mg 6-08 mg by ity of tablet 00:00: mouth [place] 00 daily. [facility] Branch allopurinol 2018-0 Yes 300mg Take 300 U nivers 300 mg 6-08 mg by ity of tablet 00:00: mouth [place] 00 daily. Medical Branch allopurinol 2019-0 Yes 300mg Take 300 U nivers 300 mg 6-08 mg by ity of tablet 00:00: mouth [place] 00 daily. Medical Branch allopurinol 2019-0 Yes 300mg Take 300 U nivers 300 mg 6-08 mg by ity of tablet 00:00: mouth [place] 00 daily. Medical Branch allopurinol 2019-0 Yes 300mg Take 300 U nivers 300 mg 6-08 mg by ity of tablet 00:00: mouth [place] 00 daily. Medical Branch Immunizations Ordered Filled Immunization Date Status Comments [facility] e Immunization Name Name SARS-COV-2 COVID-19 2020-12-19 Completed Unive rsity of MODERNA VACCINE 00:00:00 [facility] ical Branch SARS-COV-2 COVID-19 2020-12-19 Completed Unive rsity of MODERNA VACCINE 00:00:00 [facility] ical Branch SARS-COV-2 COVID-19 2020-12-19 Completed Unive rsity of MODERNA VACCINE 00:00:00 [facility] ical Branch SARS-COV-2 COVID-19 2020-12-19 Completed Unive rsity of MODERNA VACCINE 00:00:00 [facility] ical Branch SARS-COV-2 COVID-19 2020-12-19 Completed Unive rsity of MODERNA VACCINE 00:00:00 [facility] ical Branch SARS-COV-2 COVID-19 2020-12-19 Completed Unive rsity of MODERNA VACCINE 00:00:00 [facility] ical Branch SARS-COV-2 COVID-19 2020-12-19 Completed Unive rsity of MODERNA VACCINE 00:00:00 [facility] ical Branch SARS-COV-2 COVID-19 2020-12-19 Completed Unive rsity of MODERNA VACCINE 00:00:00 [facility] ical Branch SARS-COV-2 COVID-19 2020-12-19 Completed Unive rsity of MODERNA VACCINE 00:00:00 [facility] ical Branch SARS-COV-2 COVID-19 2020-12-19 Completed Unive rsity of MODERNA 12+ YRS 00:00:00 [facility] ical [facility] Branch SARS-COV-2 COVID-19 2020-12-19 Completed Unive rsity of MODERNA 12+ YRS 00:00:00 [place] [facility] ical VACCINE Branch SARS-COV-2 COVID-19 2020-12-19 Completed Unive rsity of MODERNA 12+ YRS 00:00:00 [place] [facility] ical VACCINE Branch SARS-COV-2 COVID-19 2020-12-19 Completed Unive rsity of MODERNA 12+ YRS 00:00:00 [place] [facility] ical VACCINE Branch SARS-COV-2 COVID-19 2020-12-19 Completed Unive rsity of MODERNA 12+ YRS 00:00:00 [place] Med ical VACCINE Branch SARS-COV-2 COVID-19 2020-11-21 Completed Unive rsity of MODERNA VACCINE 00:00:00 [place] [facility] ical Branch SARS-COV-2 COVID-19 2020-11-21 Completed Unive rsity of MODERNA VACCINE 00:00:00 [place] [facility] ical Branch SARS-COV-2 COVID-19 2020-11-21 Completed Unive rsity of MODERNA VACCINE 00:00:00 [place] [facility] ical Branch SARS-COV-2 COVID-19 2020-11-21 Completed Unive rsity of MODERNA VACCINE 00:00:00 [place] [facility] ical Branch SARS-COV-2 COVID-19 2020-11-21 Completed Unive rsity of MODERNA VACCINE 00:00:00 [place] [facility] ical Branch SARS-COV-2 COVID-19 2020-11-21 Completed Unive rsity of MODERNA VACCINE 00:00:00 [place] [facility] ical Branch SARS-COV-2 COVID-19 2020-11-21 Completed Unive rsity of MODERNA VACCINE 00:00:00 [place] [facility] ical Branch SARS-COV-2 COVID-19 2020-11-21 Completed Unive rsity of MODERNA VACCINE 00:00:00 [place] [facility] ical Branch SARS-COV-2 COVID-19 2020-11-21 Completed Unive rsity of MODERNA VACCINE 00:00:00 [place] [facility] ical Branch SARS-COV-2 COVID-19 2020-11-21 Completed Unive rsity of MODERNA 12+ YRS 00:00:00 [place] [facility] ical VACCINE Branch SARS-COV-2 COVID-19 2020-11-21 Completed Unive rsity of MODERNA 12+ YRS 00:00:00 [place] Med ical VACCINE Branch SARS-COV-2 COVID-19 2020-11-21 Completed Unive rsity of MODERNA 12+ YRS 00:00:00 [place] Med ical VACCINE Branch SARS-COV-2 COVID-19 2020-11-21 Completed Unive rsity of MODERNA 12+ YRS 00:00:00 [place] Med ical VACCINE Branch SARS-COV-2 COVID-19 2020-11-21 Completed Unive rsity of MODERNA 12+ YRS 00:00:00 [facility] ical VACCINE Branch Vital Signs Vital Name Observation Time Observation Value Comments Source Systolic blood 2022-05-26 07:00:00 146 mm[Hg] Univer sity of pressure [facility] Diastolic blood 2022-05-26 07:00:00 67 mm[Hg] Unive rsity of pressure [facility] Heart rate 2022-05-26 07:00:00 52 /min Universi ty of [facility] Respiratory rate 2022-05-26 07:00:00 18 /min Univ ersity of [facility] Oxygen saturation in 2022-05-26 07:00:00 93 /min [facility] Arterial blood by [facility] Pulse oximetry Branch Body temperature 2022-05-26 04:31:00 36.78 Deborah Univ ersity of [facility] Body height 2022-05-26 04:31:00 182.9 cm Universi ty of [facility] Body weight 2022-05-26 04:31:00 105.325 kg Universi ty of [facility] BMI 2022-05-26 04:31:00 31.49 kg/m2 Universi ty [facility] Systolic blood 2022-01-04 15:54:00 153 mm[Hg] Univer sity of pressure [facility] Diastolic blood 2022-01-04 15:54:00 65 mm[Hg] Unive rsity of pressure [facility] Heart rate 2022-01-04 15:49:00 74 /min Universi ty of [facility] Body weight 2022-01-04 15:49:00 104.781 kg Universi ty of [facility] BMI 2022-01-04 15:49:00 30.48 kg/m2 Universi ty [facility] Oxygen saturation in 2022-01-04 15:49:00 100 /min [facility] Arterial blood by [facility] Pulse oximetry Branch Procedures Procedure Date / Time Performing Clinician Source Performed AUTHORIZATION FOR RELEASE 2022-10-06 06:01:00 Doctor Fany, [facility] [place] [facility] ABDOMEN PELVIS W 2022-05-26 07:21:21 Melody Villa [facility] CONTRAST Medical Branch COMP. METABOLIC PANEL 2022-05-26 05:05:00 Melody Villa [facility] ([id number]) Medical Branch CBC WITH DIFF 2022-05-26 05:05:00 Melody Villa [facility] COVID-19 (ID NOW RAPID 2022-05-26 05:05:00 Melody Villa [facility] TESTING) [facility] [place] CONSENT/REFUSAL FOR 2022-05-26 03:55:22 Doctor Soares [facility] DIAGNOSIS AND TREATMENT [facility] [place] MEDICAL RELEASE/CLEARANCE 2022-05-22 05:01:00 Doctor Fany, [facility] FORMS Short [facility] SLEEP STUDY DATA REPORT 2022-02-24 05:01:00 Doctor Soares, [facility] Name [facility] [place] EXTERNAL PROVIDER - ADC 2022-01-05 05:01:00 Doctor Fany, [facility] REFERRAL [facility] [place] INSURANCE CORRESPONDENCE 2022-01-03 05:01:00 Doctor Soares [facility] [place] Encounters Start End Encounter Admission Attending Care Care Encounter Source Date/Time Date/Time Type Type Clinicians Facility Department ID 2021-07-22 Emergency [facility] [id number] Univers 21:55:33 [facility] [place] [facility] [place] 2022-12-20 2022-12-20 SHIVA Gonzalez [id number] Univers 00:00:00 00:00:00 Naheed SHARP [id number] ity of [facility] 4.2.7.2.686 [place] [phone] Medi brooks [address] 2022-12-11 2022-12-11 SHIVA Gonzalez 1.2.840.114 [id number] Univers 00:00:00 00:00:00 Naheed BERGMANY 350.1.13.10 [phone] [place] 790426 [place] 2022-11-29 2022-11-29 SHIVA Gonzalez 1.2.840.114 [id number] Univers 00:00:00 00:00:00 Management Gage SHARP 350.1.13.10 [place] [phone] [address] 2022-10-10 2022-10-10 [facility] [id number] Univers 10:00:00 10:00:00 LIZZ wiley o f [facility] 2022-10-06 2022-10-06 Orders Doctor DORIS 1.2.840.114 [id number] Univers 00:00:00 00:00:00 Only Unassigned, JEFFERY 350.1.13.10 ity of Short [facility] 4.2.7.2.686 Ignacio as [phone] [address] 2022-07-24 2022-07-24 [facility] [id number] Devoted 00:00:00 00:00:00 [id number] Medica l [facility] 2022-07-24 2022-07-24 Outpatient [facility] [id number] Devoted 00:00:00 00:00:00 [id number] Medica l Group 2022-06-22 2022-06-22 Emergency X [facility] ERT [id number] Univers 12:07:00 14:53:00 LUNA [facility] 2022-06-22 2022-06-22 Outpatient [facility] [id number] Devoted 00:00:00 00:00:00 [id number] Medica l Group 2022-05-25 2022-05-26 Emergency [facility] [id number] Univers 23:34:00 03:42:00 MELODY wiley [facility] 2022-05-25 2022-05-26 Emergency [facility] 1.2.439.835 [id number] Univers 23:34:00 03:42:00 Melody ENGLISH 350.1.13.10 ity of [place] 4.2.7.2.686 [facility] [phone] [facility] [address] 2022-05-23 2022-05-23 Telephone Jaquan, [facility] 1.2.666.094 [id number] Univers 00:00:00 00:00:00 Lizz AMADOR 350.1.13.10 ity of [place] 4.2.7.2.686 [facility] [phone] [facility] 059 [facility] 2022-05-22 2022-05-22 Orders Doctor DORIS 1.2.840.114 [id number] Univers 00:00:00 00:00:00 Only Unassigned, JEFFERY 350.1.13.10 ity of [place] [facility] 4.2.7.2.686 Ignacio as [phone] [facility] [address] [place] 2022-03-11 2022-03-11 Outpatient R [facility] [id number] Univers 19:30:00 19:30:00 ity of [facility] 2022-02-24 2022-02-24 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 2.840.114 [id number] Univers 19:30:00 22:00:00 Visit Juan Pablo Adams 350.1.13. 10 ity of [place] 4.2.7.2.686 [facility] [phone] [facility] [address] 2022-02-24 2022-02-24 Outpatient R JUAN PABLO ADAMS [facility] [id number] Univers 19:30:00 19:30:00 JUAN PABLO ADAMS ity of [facility] 2022-02-24 2022-02-24 Orders Doctor GEORGE 1.2.840.114 [id number] Univers 00:00:00 00:00:00 Only Unassigned, JEFFERY 350.1.13.10 ity of [place] [facility] 4.2.7.2.686 Ignacio as [phone] [facility] [address] [place] 2022-01-05 2022-01-05 Orders Doctor GEORGE 1.2.840.114 [id number] Univers 00:00:00 00:00:00 Only Unassigned, JEFFERY 350.1.13.10 ity of Short [facility] 4.2.7.2.686 Ign[place] as [phone] [address] 2022-01-04 2022-01-04 Stone Grader 2, Adc Lab [facility] 1.2.840.114 [id number] Univers 11:30:00 11:45:00 Visit Jaquan Lizz ENGLISH 350.1.13.10 it[place] [phone] Ar dical NAL 353 [facility] 2022-01-04 2022-01-04 Outpatient R JAQUAN, [facility] [id number] Univers 11:30:00 11:30:00 WILLISJODIE inez o [facility] 2022-01-04 2022-01-04 Outpatient R JAQUAN, [facility] [id number] Univers 10:40:00 11:10:46 LIZZ wiley o [facility] 2022-01-04 2022-01-04 Office Jaquan, [facility] 1.2.840.114 [id number] Univers 10:40:00 11:10:46 Visit Lizz ENGLISH 350.1.13.10 it[place] [phone] Ar dical NAL 059 [facility] 2022-01-03 2022-01-03 Orders Doctor GEORGE 1.2.840.114 [id number] Univers 00:00:00 00:00:00 Only Unassigned, JEFFERY 350.1.13.10 ity of [place] [facility] 4.2.7.2.686 Ignacio as [phone] [address] 2021-12-29 2021-12-29 Outpatient R RADIOLOGY [facility] [id number] Univers 14:29:19 23:59:00 ity of [facility] 2021-12-29 2021-12-29 Hospital Radiology [facility] 1.2.840.114 [id number] Univers 14:29:19 23:59:00 Encounter AMADOR 350.1.13.10 it[place] of [place].2.7.2.[place] [facility] [phone] [facility] [address] [place] 2021-12-29 2021-12-29 Stone Grader Kervin, [facility] Main [facility] 1.2.8 40.114 [id number] Univers 15:45:00 16:00:00 Visit Chandanatierra Sherry Amish ENGLISH 350.1.13.10 ity of [place] 4.2.7.2.[place] [phone] Ar dical NAL 353 [facility] 2021-12-29 2021-12-29 Orders Doctor DORIS 1.2.840.114 [id number] Univers 00:00:00 00:00:00 Only Unassigned, JEFFERY 350.1.13.10 ity of [place] HOSPITAL 4.2.7.2.686 Ignacio as [phone] [facility] [address] [place] 2021-12-14 2021-12-14 Telephone [facility] 1.2.216.015 [id number] Univers 00:00:00 00:00:00 Lizz ENGLISH 350.1.13.10 ity of [place] 4.2.7.2.[place] [phone] Ar dical NAL 059 [facility] 2021-12-05 2021-12-05 [facility] 1.2.758.487 [id number] Univers 00:00:00 00:00:00 Lizz ENGLISH 350.1.13.10 ity of [place] 4.2.7.2.[place] [phone] Ar dicia NAL 059 [facility] 2021-11-29 2021-11-29 Orders Doctor GEORGE 1.2.840.114 [id number] Univers 00:00:00 00:00:00 Only Unassigned, JEFFERY 350.1.13.10 ity of [place] HOSPITAL 4.2.7.2.686 Ign[place] as [phone] [address] 2021-11-22 2021-11-22 Out[facility] [id number] Univers 15:20:00 15:20:00 LIZZ wiley o f [facility] 2021-11-01 2021-11-01 Outpatient [facility] [id number] Univers 15:20:00 15:20:00 LIZZ ity o f [facility] 2021-01-26 2021-01-26 Telephone [facility] 1.2.447.226 [id number] Univers 00:00:00 00:00:00 Lizz English 350.1.13.10 ity of [place].2.[place] [phone] Ar dical nal [address] [place] [address] 2021-01-25 2021-01-25 Office [facility] 1.2.840.114 [id number] Univers 11:00:00 11:30:02 Visit Lizz ENGLISH 350.1.13.10 ity of [place] 4.2.7.2.[place] [phone] Ar dicia NAL [address] [place] [address] 2021-01-25 2021-01-25 Outpatient R [facility] [id number] Univers 11:00:00 11:30:02 LIZZ wiley o f [facility] 2021-01-25 2021-01-25 Telephone [facility] 1.2.738.842 [id number] Univers 00:00:00 00:00:00 Lizz English 350.1.13.10 ity of [place]2.[place].2.[place] [phone] Ar dical nal [address] [place] [address] 2021-01-25 2021-01-25 Telephone [facility] 1.2.471.238 [id number] Univers 00:00:00 00:00:00 Lizz English 350.1.13.10 ity of [place] 4.2.7.2.[place] [phone] Ar dical nal [address] [place] [address] 2021-01-21 2021-01-21 Stone Grader 1, Adc Lab [facility] 1.2.840.114 [id number] Univers 09:53:12 10:08:12 Visit Lizz Partida 350.1.13.10 ity of [place] 4.2.7.2.686 [place] [phone] [address] 2021-01-21 2021-01-21 Outpatient R JAQUAN, [facility] [id number] Univers 09:15:00 09:15:00 CESIASHANNAN inez o f [facility] 2021-01-21 2021-01-21 Orders Doctor DORIS 1.2.840.114 [id number] Univers 00:00:00 00:00:00 Only Unassigned, JEFFERY 350.1.13.10 ity of [place] [facility] 4.2.7.2.686 Ignacio as [phone] [facility] [address] 2020-12-19 2020-12-19 Outpatient R AWAIS, [facility] [id number] Univers 12:15:00 12:15:00 AMELIE ity [facility] 2020-12-15 2020-12-15 Telephone EARSMO Partida 1.2.840.114 [id number] Univers 00:00:00 00:00:00 Lizz [facility] 350.1.13.10 ity of [facility] 4.2.7.2.[place] [phone] [facility] [address] 2020-11-21 2020-11-21 Outpatient R AWAIS, [facility] [id number] Univers 13:20:00 13:20:00 AEMLIE ity [facility] 2020-08-25 2020-08-25 Stone Grader Pc, [facility] Room [address] [place] [address] 1.2.840.114 [id number] Univers 12:40:43 13:40:43 Visit Lizz Partida 350.1.13.10 ity [facility] 4.2.7.2.[place] [phone] [place] 340049 [facility] 2020-08-25 2020-08-25 Outpatient R [facility] [id number] Univers 13:00:00 13:00:00 ity [facility] 2020-08-02 2020-08-02 Stone Grader Pc, [facility] [address] [place] [address] 1.2.840.114 [id number] Univers 13:00:37 13:33:57 Visit Lizz Partida 350.1.13.10 ity of [place].2.[place] [phone] Ar dical nal 059 [facility] 2020-08-02 2020-08-02 Outpatient R [facility] [id number] Univers 13:00:00 13:00:00 ity of [facility] 2020-07-28 2020-07-28 Office [facility] 1.2.840.114 [id number] Univers 11:12:44 11:41:29 Visit Lizz English 350.1.13.10 ity of [place].2.[place] [phone] Ar dical nal 9 [facility] 2020-07-28 2020-07-28 Outpatient R [facility] [id number] Univers 11:00:00 11:00:00 LIZZ wiley o f [facility] 2020-07-28 2020-07-28 Orders Doctor DORIS 1.2.840.114 [id number] Univers 00:00:00 00:00:00 Only Unassigned, JFEFERY 350.1.13.10 ity of [place] HOSPITAL 4.2.7.2.686 Ignacio as [phone] [address] 2020-07-01 2020-07-01 Emergency [facility] 1.2.407.912 [id number] Univers 15:23:00 18:58:00 Luna English 350.1.13.10 i ty of [place].2.[place] [phone] [address] 2020-07-01 2020-07-01 Orders Doctor DORIS 1.2.840.114 [id number] Univers 00:00:00 00:00:00 Only Unassigned, JEFFERY 350.1.13.10 ity of [place] H[facility]PITAL 4.2.7.2.686 Ignacio as [phone] [address] 2020-01-26 2020-01-26 Office [facility] 1.2.840.114 [id number] Univers 08:12:32 11:46:48 Visit Lizz English 350.1.13.10 ity of [place].2.[place] [phone] Ar dicia nal [address] [place] [address] 2020-01-26 2020-01-26 Outpatient [facility] [id number] Univers 11:00:00 11:00:00 LIZZ wiley o f [facility] 2019-11-27 2019-11-27 Office [facility] 1.2.858.512 [id number] Univers 09:04:11 10:58:00 Visit Pankaj English 350.1.13.10 i ty of [place].2.[place] [phone] [facility] 377 [facility] 2019-11-27 2019-11-27 [facility] [id number] Univers 09:15:00 09:15:00 PANKAJ wiley [facility] 2019-11-25 2019-11-25 Outpatient [facility] [id number] Univers 14:45:00 14:45:00 PANKAJ wiley [facility] 2019-10-29 2019-10-29 Telephone [facility] 1.2.821.264 [id number] Univers 00:00:00 00:00:00 Lizz English 350.1.13.10 ity of [place].2.[place] [phone] [place] 340049 [facility] 2019-10-28 2019-10-28 Office [facility] 1.2.840.114 [id number] Univers 10:11:05 13:42:58 Visit Lizz English 350.1.13.10 ity of [place] 4[place]2.7.2.[place] [phone] [facility] 059 [facility] 2019-10-28 2019-10-28 Stone Grader 2, Adc Lab [facility] 1.2.840.114 [id number] Univers 11:36:47 11:51:47 Visit Lizz Partida 350.1.13.10 ity of [place] 4[place]2.7.2.[place] [phone] [facility] 353 [facility] 2019-10-28 2019-10-28 Orders Doctor DORIS 1.2.840.114 [id number] Univers 00:00:00 00:00:00 Only Unassigned, JEFFERY 350.1.13.10 ity of [place] HOSPITAL 4.2.7.2.686 Ignacio as [phone] [facility] [address] 2019-10-12 2019-10-12 Emergency Ronn, [facility] 1.2.840.114 [id number] Univers 12:38:01 13:31:00 Prachi English 350.1.13.10 ity of [place].2.[place] [phone] [place] 7904[address] [place] 2019-06-06 2019-06-06 Office [facility] 1.2.840.114 [id number] Univers 13:43:38 15:21:53 Visit Lizz English 350.1.13.10 ity of [place] 4.2.7.2.686 [place] [facility] [phone] [place] 340049 [facility] 2019-05-22 2019-05-22 Office Andres BarakatIT 1.2.840.114 [id number] Univers 13:15:27 13:30:27 Visit Y HEALTH 350.1.13.10 i ty of CLINICS 4[place]2.7.2.[place] [phone] [place] [address] [address] 2019-05-09 2019-05-20 Inpatient 3 [facility] ENCPL CRD 5243 [employer] 19:57:00 11:30:00 diamond, 0816 [facility] itation Karma barillas 2019-05-06 2019-05-09 Hospital Andres Barakat Deepthi 1.2.840.114 [id number] Univers 05:07:00 18:15:00 Encounter Jeffery 350.1.13.10 ity of Hospital 4.2.7.2.686 Ign[place] as [phone] [place] 790429 [place] 2019-04-28 2019-04-28 Case KRYSTYNA [place] 1.2.840.114 [id number] Univers 00:00:00 00:00:00 Management Jodi Y HEALTH 350.1.13.10 ity of [place] [facility] 4.2.7.2.686 Ignacio as [phone] Medi brooks [address] Results This patient has no known results.
[2023-03-01 17:46] LABS: Absolute Lymphocytes (CBC) 1.8 K/uL (0.7-4.9); Lymphocytes % 26.9 % (15.3-44.8); MCV 92.4 fL (80-100); MPV 8.3 fL (7.6-11.3); RBC Red Blood Cell Count 4.22 M/uL (4.33-5.43)
[2023-03-01 18:00] LABS: Albumin 3.7 g/dL (3.4-5.0); Bilirubin Total 0.4 mg/dL (0.2-1.0); Potassium 3.7 mEq/L (3.5-5.1); Protein, Total 7.9 g/dL (6.4-8.2)
[2023-03-01] MEDS ORDERED: MORPHINE 2 MG/ML SYR ONE (18:22)
[2023-03-01] MEDS ORDERED: ONDANSETRON 4 MG/2 ML VIAL ONE (18:22)
[2023-03-01 18:26] LABS: Specific Gravity 1.016 (1.005-1.030); Urine Bacteria None Seen /HPF (<20); Urine Bilirubin NEGATIVE (Negative); Urine Blood Negative (Negative); Urine Clarity Turbid (Clear); Urine Color Light-Yellow (Yellow); Urine Glucose NEGATIVE (Negative); Urine Mucus Slight /HPF (None Seen); Urine Protein NEGATIVE (Negative); Urine RBC <5 /HPF (None Seen); Urine Urobilinogen Normal (Normal)
--- NOTE | 2023-03-01 19:01 | RAD REPORT ---
EXAM DESCRIPTION: CT - Abdomen Pelvis Wo Contrast - 03/01/2023 6:34 pm CLINICAL HISTORY: Abdominal pain. ABD PAIN COMPARISON: CT ABD PELVIS W CONTRAST dated 12/02/2014 TECHNIQUE: CT imaging of the abdomen and pelvis was performed without contrast. Solid organ, bowel a nd vascular assessment is limited due to lack of IV and oral contrast. All CT scans are performed using dose optimization technique as appropriate and may include automated exposure control or mA/KV adjustment according to patient size. FINDINGS: The lower lung rodríguez are clear. The liver, spleen, pancreas, adrenal glands and kidneys are within normal limits for a limited non-co ntrast examination.Cholelithiasis. No bowel obstruction, free air, free fluid or abscess. Sigmoid diverticulosis coli without diverticul itis. Moderate retained stool. The appendix is normal. The osseous structures are within normal limits. IMPRESSION: Sigmoid diverticulosis coli without diverticulitis. Moderate fecal retention. Cholelithiasis. A limited non-contrast examination was performed as detailed.
--- NOTE | 2023-03-01 19:07 | ER ---
Nurse's Notes [facility] Name: Devon Feliz Sr Age: 73 yrs Sex: Male : 1950 Arrival Date: 03/01/2023 Time: 17:02 Bed 17 Private MD: Diagnosis: Abdominal pain, Generalized;Dysuria Presentation: 03/01 17:14 Chief complaint: Patient states: "I've had a blockage for about 1 week. I just needs ll1 antibiotics so I can pass it." + abdominal pain with N/V. Coronavirus screen: Vaccine status: Patient reports receiving the 2nd dose of the covid vaccine. Client denies travel out of the [place] in the last 14 days. At this time, the client does not indicate any symptoms associated with coronavirus-19. Ebola Screen: Patient denies travel to an Ebola-affected area in the 21 days before illness onset. Initial Sepsis Screen: Does the patient meet any 2 criteria? No. Patient's initial sepsis screen is negative. Does the patient have a suspected source of infection? Yes: Acute abdominal pain. Risk Assessment: Do you want to hurt yourself or someone else? Patient reports no desire to harm self or others. Onset of symptoms was February 22, 2023. 17:14 Method Of Arrival: Ambulatory ll1 17:14 Acuity: LILLI 3 ll1 Historical: - Allergies: 17:13 No Known Drug Allergies; ll1 - PMHx: 17:13 Hypertensive disorder; Diabetes mellitus; kidney problems; ll1 - PSHx: 17:13 Coronary artery bypass graft; ll1 - Immunization history:: Client reports receiving the 2nd dose of the Covid vaccine. - Social history:: Smoking status: Patient/guardian denies using tobacco, the patient reports quitting approximately 10 years ago. Screenin:30 [facility] ED Fall Risk Assessment (Adult) Score/Fall Risk Level 0 - 2 = Low Risk. Abuse eh3 screen: Denies threats or abuse. Denies injuries from another. Nutritional screening: No deficits noted. Tuberculosis screening: No symptoms or risk factors identified. Assessment: 17:30 General: Appears in no apparent distress. uncomfortable, Behavior is calm, cooperative, eh3 appropriate for age. Pain: Complains of pain in left lower quadrant and right lower quadrant. Neuro: Level of Consciousness is awake, alert, obeys commands, Oriented to person, place, time, situation. Cardiovascular: Capillary refill < 3 seconds Patient's skin is warm and dry. Respiratory: Airway is patent Respiratory effort is even, unlabored, Respiratory pattern is regular, symmetrical. GI: Abdomen is round non-distended. : No signs and/or symptoms were reported regarding the genitourinary system. EENT: No signs and/or symptoms were reported regarding the EENT system. Derm: Skin is pink, warm \\T\\ dry. Musculoskeletal: Circulation, motion, and sensation intact. Vital Signs: 17:14 BP 169 / 103; Pulse 60; Resp 19; Temp 98.1; Pulse Ox 100% ; Weight 86.18 kg; Height 6 ll1 ft. 0 in. ; Pain 5/10; 17:30 BP 122 / 61; Pulse 56; Resp 16; Pulse Ox 95% on R/A; eh3 18:30 BP 112 / 61; Pulse 66; Resp 16; Pulse Ox 95% on R/A; eh3 17:14 Body Mass Index 25.77 (86.18 kg, 182.88 cm) ll1 17:14 Pain Scale: Adult ll1 ED Course: 17:10 Patient arrived in ED. kj1 17:15 Triage completed. ll1 17:15 Arm band placed on Patient placed in an exam room, on a stretcher. ll1 17:19 Edson Noriega PA is PHCP. [facility] 17:19 Arian Mc DO is Attending Physician. jmm 17:24 Yazmin Elizondo, RN is Primary Nurse. eh3 17:30 Patient has correct armband on for positive identification. Bed in low position. Call eh3 light in reach. Side rails up X2. Pulse ox on. NIBP on. 17:35 Inserted saline lock: 20 gauge in right forearm, using aseptic technique. Blood eh3 collected. 18:36 Abdomen In Process Unspecified. EDMS 19:06 Fox Lema MD is Referral Physician. [facility] 19:20 No provider procedures requiring assistance completed. IV discontinued, intact, eh3 bleeding controlled, No redness/swelling at site. Pressure dressing applied. Administered Medications: 18:20 Drug: morphine IVP or IV 2 mg Route: IVP; Infused Over: 4 mins; Site: right forearm; eh3 19:21 Follow up: Response: No adverse reaction eh3 18:20 Drug: Ondansetron IVP 4 mg Route: IVP; Site: right forearm; 3 19:21 Follow up: Response: No adverse reaction 3 Medication: 19:24 VIS not applicable for this client. 3 Outcome: 19:06 Discharge ordered by . meño 19:24 Discharged to home ambulatory, with family. eh3 19:24 Condition: stable 19:24 Discharge instructions given to patient, family, Instructed on discharge instructions, follow up and referral plans. medication usage, Demonstrated understanding of instructions, follow-up care, medications, Prescriptions given X 1. 19:24 Patient left the ED. 3 Signatures: Dispatcher [employer] EDMS Edson Noriega PA PA jmm Jackson, Kandis kj1 Florentino Torres, RN RN 1 Yazmin Elizondo RN RN eh3
--- NOTE | 2023-03-01 19:07 | EDPHYS ---
Physician Documentation [facility] Name: Devon Feliz Sr Age: 73 yrs Sex: Male : 1950 Arrival Date: 03/01/2023 Time: 17:02 Bed 17 Private MD: ED Physician Arian Mc HPI: 03/01 17:20 This 73 yrs old Male presents to ER via Ambulatory with complaints of COLON PROBLEM. jmm 17:20 Associated signs and symptoms: Pertinent positives: abdominal pain. Modifying factors: jmm The patient symptoms are alleviated by nothing, the patient symptoms are aggravated by nothing. This is a 73 year old male with a history of htn, dm, ckd that presents to the ED with complaints of abdominal pain, nausea, vomiting for 1 week. Denies fever. States having a few episodes of diarrhea. . Historical: - Allergies: 17:13 No Known Drug Allergies; ll1 - PMHx: 17:13 Hypertensive disorder; Diabetes mellitus; kidney problems; ll1 - PSHx: 17:13 Coronary artery bypass graft; ll1 - Immunization history:: Client reports receiving the 2nd dose of the Covid vaccine. - Social history:: Smoking status: Patient/guardian denies using tobacco, the patient reports quitting approximately 10 years ago. ROS: 17:20 Constitutional: Negative for fever, chills, and weight loss, Cardiovascular: Negative jmm for chest pain, palpitations, and edema, Respiratory: Negative for shortness of breath, cough, wheezing, and pleuritic chest pain. 17:20 Abdomen/GI: Positive for abdominal pain, nausea and vomiting. 17:20 All other systems are negative. Exam: 17:20 Constitutional: This is a well developed, well nourished patient who is awake, alert, jmm and in no acute distress. Head/Face: atraumatic. Eyes: EOMI, no conjunctival erythema appreciated ENT: Moist Mucus Membranes Neck: Trachea midline, Supple Chest/axilla: Normal chest wall appearance and motion. Cardiovascular: Regular rate and rhythm. No edema appreciated Respiratory: Normal respirations, no respiratory distress appreciated 17:20 Back: Normal ROM Skin: General appearance color normal 17:20 Abdomen/GI: Inspection: obese Bowel sounds: normal, Palpation: soft, mild abdominal tenderness, in the right lower quadrant and left lower quadrant. 17:20 Musculoskeletal/extremity: ROM: intact in all extremities. 17:20 Skin: Appearance: Color: normal in color. 17:20 Neuro: Orientation: is normal, Mentation: is normal, Memory: is normal. 17:20 Psych: Behavior/mood is pleasant, cooperative. Vital Signs: 17:14 BP 169 / 103; Pulse 60; Resp 19; Temp 98.1; Pulse Ox 100% ; Weight 86.18 kg; Height 6 ll1 ft. 0 in. ; Pain 5/10; 17:30 BP 122 / 61; Pulse 56; Resp 16; Pulse Ox 95% on R/A; eh3 18:30 BP 112 / 61; Pulse 66; Resp 16; Pulse Ox 95% on R/A; eh3 17:14 Body Mass Index 25.77 (86.18 kg, 182.88 cm) ll1 17:14 Pain Scale: Adult ll1 MDM: 17:20 Patient medically screened. [facility] 18:37 Differential diagnosis: viral Infection, bacterial infection, colitis, appendicitis, jm diverticulitis. Data reviewed: vital signs, nurses notes. 19:06 Consideration of Admission/Observation Escalation of care including [facility] admission/observation considered. Counseling: I had a detailed discussion with the patient and/or guardian regarding: the historical points, exam findings, and any diagnostic results supporting the discharge/admit diagnosis, lab results, radiology results, the need for outpatient follow up, to return to the emergency department if symptoms worsen or persist or if there are any questions or concerns that arise at home. ED course: Upon reevaluation patient stated he did have some painful urination. Will treat with oral antibiotics. Advised the patient to follow-up with PCP/general surgery/urology for further evaluation. Patient otherwise given strict return precautions. Patient understood and agrees plan of care. 03/01 17:23 Order name: CBC with Diff; Complete Time: 17:50 [facility] 03/01 17:23 Order name: CMP; Complete Time: 18:01 [facility] 03/01 17:23 Order name: Lipase; Complete Time: 18:01 [facility] 03/01 17:23 Order name: Urinalysis w/ reflexes; Complete Time: 18:29 [facility] 03/01 18:18 Order name: Abdomen ; Complete Time: 19:02 [facility] 03/01 17:23 Order name: IV Saline Lock; Complete Time: 17:40 [facility] 03/01 17:23 Order name: Labs collected and sent; Complete Time: 17:40 [facility] Administered Medications: 18:20 Drug: morphine IVP or IV 2 mg Route: IVP; Infused Over: 4 mins; Site: right forearm; 3 19:21 Follow up: Response: No adverse reaction 3 18:20 Drug: Ondansetron IVP 4 mg Route: IVP; Site: right forearm; eh3 19:21 Follow up: Response: No adverse reaction 3 Disposition: 19:49 Co-signature as Attending Physician, Arian Mc DO I was immediately available on-site ms3 in the Emergency Department for consultation in the care of the patient. Disposition Summary: 03/01/23 19:06 Discharge Ordered Location: Home [facility] Condition: Stable [facility] Diagnosis - Abdominal pain, Generalized jmm - Dysuria [facility] Followup: [facility] - With: Private Physician - When: 2 - 3 days - Reason: Recheck today's complaints, Continuance of care, Re-evaluation by your physician Followup: [facility] - With: Fox Lema MD - When: 2 - 3 days - Reason: Recheck today's complaints, Continuance of care, Re-evaluation by your physician Discharge Instructions: - Discharge Summary Sheet jmm - Abdominal Pain, Adult jmm - Dysuria [facility] Forms: - Medication Reconciliation Form [facility] - Thank You Letter [facility] - Antibiotic Education [facility] - Prescription Opioid Use [facility] Prescriptions: - Cephalexin 500 mg Oral Capsule - take 1 capsule by ORAL route every 8 hours for 10 days; 30 capsule; Refills: 0, [facility] Product Selection Permitted Signatures: Dispatcher [employer] EDMS Edson Noriega PA PA m Florentino Torres, RN RN ll1 Arian Mc DO DO ms3 Yazmin Elizondo RN RN eh3 Corrections: (The following items were deleted from the chart) 18:18 17:24 Abdomen Pelvis W Con+CT.RAD.BRZ ordered. EDMS EDMS
[2023-03-01 20:10] VITALS: TEMP 98.1
[2023-03-01 20:12] VITALS: O2SAT 95
[2023-03-01 20:13] VITALS: BP 112/61
== END 2023-03-01 19:24 | disposition home or self-care (01) ==
LOC: ER 17:02
DX: R10.84 Generalized abdominal pain (principal); R30.0 Dysuria; R11.2 Nausea with vomiting, unspecified; E11.22 Type 2 diabetes mellitus with diabetic chronic kidney disease; I12.9 Hypertensive chronic kidney disease with stage 1 through stage 4 chronic kidney disease, or unspecified chronic kidney disease; N18.9 Chronic kidney disease, unspecified; Z95.1 Presence of aortocoronary bypass graft
CPT/HCPCS: 85025; 81001; 36415; 83690; 80053; 74176; 96375; 96374; 99284; J2270; J2405

== ENCOUNTER 2023-03-30 06:40 | Day surgery (SDC) | payer MEDICARE ==
[2023-03-30] MEDS ORDERED: NA CHLORIDE 0.9% 1,000 ML ONE (06:52)
[2023-03-30] MEDS ORDERED: LIDOCAINE 1% MPF 5 ML VIAL ONE (07:56)
[2023-03-30] MEDS ORDERED: propofoL 200 MG/20 ML VIAL IV ONE (07:56)
[2023-03-30] MEDS ORDERED: EPHEDRINE SULF 50 MG/ML VIAL ONE (08:08)
[2023-03-30 10:21] VITALS: TEMP 98.8
[2023-03-30 10:28] VITALS: BP 119/57; O2SAT 94
== END 2023-03-30 09:32 | disposition home or self-care (01) ==
LOC: OR 06:40
PROVIDERS: ATTEND Surgery
PROC: 0DB68ZX Excision of Stomach, Via Natural or Artificial Opening Endoscopic, Diagnostic (ICD-10-PCS; 2023-03-30)
PROC: 0DB38ZX Excision of Lower Esophagus, Via Natural or Artificial Opening Endoscopic, Diagnostic (ICD-10-PCS; 2023-03-30)
PROC: 0DB48ZX Excision of Esophagogastric Junction, Via Natural or Artificial Opening Endoscopic, Diagnostic (ICD-10-PCS; 2023-03-30)
PROC: 0DJD8ZZ Inspection of Lower Intestinal Tract, Via Natural or Artificial Opening Endoscopic (ICD-10-PCS; 2023-03-30)
PROC: 0DB98ZX Excision of Duodenum, Via Natural or Artificial Opening Endoscopic, Diagnostic (ICD-10-PCS; principal; 2023-03-30 08:00)
PROC: 0DB78ZX Excision of Stomach, Pylorus, Via Natural or Artificial Opening Endoscopic, Diagnostic (ICD-10-PCS; 2023-03-30 08:00)
DX: R10.13 Epigastric pain (principal); K21.9 Gastro-esophageal reflux disease without esophagitis; K29.40 Chronic atrophic gastritis without bleeding; K44.9 Diaphragmatic hernia without obstruction or gangrene; K25.3 Acute gastric ulcer without hemorrhage or perforation; K29.80 Duodenitis without bleeding; K29.50 Unspecified chronic gastritis without bleeding; K21.00 Gastro-esophageal reflux disease with esophagitis, without bleeding; K57.30 Diverticulosis of large intestine without perforation or abscess without bleeding; R19.4 Change in bowel habit; Z91.199 Patient's noncompliance with other medical treatment and regimen due to unspecified reason
CPT/HCPCS: 88312 ×2; 82947; 88305; 43239; 45378; J2704; J2001; J7030

== ENCOUNTER 2024-01-10 11:35 | Emergency (ER) | payer MEDICARE ==
[2024-01-10 12:50] LABS: Absolute Basophils 0.1 K/uL (0-0.5); Absolute Eosinophils 0.2 K/uL (0-0.5); Absolute Lymphocytes (CBC) 1.5 K/uL (0.7-4.9); Absolute Monocytes 0.7 K/uL (0.1-1.3); Absolute Neutrophil 6.1 K/uL (1.8-8.0); Basophils % 1.1 % (0-1.3); Eosinophils % 1.8 % (0-4.4); Hematocrit 38.6 % (39.6-49.0); Hemoglobin 12.4 g/dL (13.6-17.9); Lymphocytes % 17.1 % (15.3-44.8); MCH 30.9 pg (27.0-35.0); MCHC 32.2 g/dL (32.0-36.0); MPV 8.3 fL (7.6-11.3); Platelets 260 thou/uL (152-406); RBC Red Blood Cell Count 4.02 M/uL (4.33-5.43); Red Cell Distribution Width 16.2 % (12.1-15.2)
--- NOTE | 2024-01-10 13:49 | RAD REPORT ---
EXAM DESCRIPTION: CTAbdomen Pelvis W Contrast - 01/10/2024 1:26 pm CLINICAL HISTORY: CONSTIPATION COMPARISON: CT ABD PELVIS W CONTRAST dated 12/02/2014; CT ABD PELVIS W CONTRAST dated 09/23/2014; CT ABD PELVIS W CONTRAST dated 09/16/2009 TECHNIQUE: CT of the abdomen and pelvis was performed. All CT scans are performed using dose optimization technique as appropriate and may include automated exposure control or mA/KV adjustment according to patient size. FINDINGS: Lower chest: Pacemaker leads. Mild circumferential thickened distal esophagus could reflec t mild esophagitis. Liver: Hepatic steatosis . Biliary: Cholelithiasis. No CT is acute cholecystitis . Stomach: No significant focal abnormality. Duodenum: No significant focal abnormality. Pancreas: No significant abnormality. Spleen: No significant abnormality. Adrenal: No suspicious lesions. Kidney/ureter: No hydronephrosis. No renal calculi. Renal cortical thinning. Retroperitoneum: No retroperitoneal adenopathy. Vascular: No aneurysm. Atherosclerosis. Bowel: Mild inflammatory changes present along the proximal sigmoid colon.. Peritoneum: No ascites or free air. Bladder: Grossly unremarkable. Reproductive: No adnexal masses. Bones: No acute fracture. Other: n/a IMPRESSION: Acute uncomplicated sigmoid diverticulitis. No perforation, abscess, or bowel obstructio n .
[2024-01-10] MEDS ORDERED: METRONIDAZOLE 500mg IVPB 500 MG/100 ML BAG IV ONE (14:15)
[2024-01-10] MEDS ORDERED: NA CHLORIDE 0.9% 500 ML ONE (14:15)
[2024-01-10] MEDS ORDERED: CIPROFLOXACIN 400mg IV 400 MG/200 ML BAG IV ONE (14:15)
[2024-01-10 14:16] LABS: Albumin 3.9 g/dL (3.4-5.0); Albumin/Globulin Ratio 1.1 (1.1-1.8); Anion Gap 7.6 mEq/L (5.0-15.0); Bilirubin Total 0.7 mg/dL (0.2-1.0); Globulin 3.4 g/dL (2.3-3.5); Potassium 3.6 mEq/L (3.5-5.1); Protein, Total 7.3 g/dL (6.4-8.2)
--- NOTE | 2024-01-10 14:39 | ER ---
Nurse's Notes [facility] Name: Devon Feliz Age: 73 yrs Sex: Male : 1950 Arrival Date: 01/10/2024 Time: 11:35 Bed 17 Private MD: Diagnosis: Diverticulitis of large intestine without perforation or abscess without bleeding Presentation: 01/09 11:44 Chief complaint: Patient states: "I've been constipated for 1 week and I'm having LLQ mb9 pain.". Coronavirus screen: Vaccine status: Patient reports receiving the 2nd dose of the covid vaccine. Ebola Screen: No symptoms or risks identified at this time. Initial Sepsis Screen: Does the patient meet any 2 criteria? No. Patient's initial sepsis screen is negative. Does the patient have a suspected source of infection? No. Patient's initial sepsis screen is negative. Risk Assessment: Do you want to hurt yourself or someone else? Patient reports no desire to harm self or others. Onset of symptoms was January 10, 2024. 11:44 Method Of Arrival: Ambulatory mb9 11:44 Acuity: LILLI 3 mb9 Triage Assessment: 11:46 General: Appears in no apparent distress. Behavior is calm, cooperative. Pain: mb9 Complains of pain in abdomen. EENT: No signs and/or symptoms were reported regarding the EENT system. Neuro: Meyer Agitation-Sedation Scale (RASS): 0 - Alert and Calm Level of Consciousness is awake, alert, obeys commands, Oriented to person, place, time, situation, Appropriate for age. Cardiovascular: Patient's skin is warm and dry. Respiratory: Airway is patent Respiratory effort is even, unlabored, Respiratory pattern is regular, symmetrical. GI: Abdomen is round non-distended, Abd is soft Abdomen is tender to palpation in left lower quadrant Reports constipation. : No signs and/or symptoms were reported regarding the genitourinary system. Derm: Skin is pink, warm \\T\\ dry. Musculoskeletal: Range of motion: intact in all extremities. Historical: - Allergies: 11:45 No Known Allergies; mb9 - PMHx: 11:45 diabetes mellitus; Hypertensive disorder; kidney problems; mb9 - PSHx: 11:45 Coronary artery bypass graft; mb9 - Immunization history:: Adult Immunizations up to date. - Infectious Disease History:: Denies. - Social history:: Smoking status: Patient denies any tobacco usage or history of. Screenin:00 [facility] ED Fall Risk Assessment (Adult) History of falling in the last 3 months, bp including since admission No falls in past 3 months (0 pts). Abuse screen: Denies threats or abuse. Denies injuries from another. Nutritional screening: No deficits noted. Tuberculosis screening: No symptoms or risk factors identified. Assessment: 12:00 General: SEE TRIAGE NOTE. bp 12:59 Reassessment: No changes from previously documented assessment. Patient is alert, bp oriented x 3, equal unlabored respirations, skin warm/dry/pink. GI: Bowel sounds present X 4 quads. 14:00 Reassessment: Patient appears in no apparent distress at this time. Patient is alert, bp oriented x 3, equal unlabored respirations, skin warm/dry/pink. 14:53 General: discharge pending abx. as6 Vital Signs: 11:44 Pulse 78; Resp 18; Temp 97.8; Pulse Ox 97% on R/A; Weight 90.72 kg; Height 6 ft. 0 in. mb9 ; Pain 5/10; 11:47 BP 165 / 89; mb9 12:58 BP 179 / 79; Pulse 119; Resp 16; Pulse Ox 99% ; bp 14:00 BP 165 / 89; Pulse 63; Resp 16; Pulse Ox 97% ; bp 15:08 BP 167 / 85; Pulse 75; Resp 16; Pulse Ox 99% ; bp 11:44 Body Mass Index 27.12 (90.72 kg, 182.88 cm) mb9 11:44 Pain Scale: Adult mb9 ED Course: 11:39 Patient arrived in ED. ra3 11:44 Arm band placed on. mb9 11:45 Triage completed. mb9 11:56 Sharmaine Barajas MD is Attending Physician. sp3 12:00 Patient has correct armband on for positive identification. bp 12:17 Yordy Syed, JOSE is Primary Nurse. bp 12:39 CBC with Diff Sent. bp 12:39 Lipase Sent. bp 12:39 CMP Sent. bp 12:39 Inserted saline lock: 22 gauge in right forearm, using aseptic technique. Blood bp collected. 13:27 CT Abd/Pelvis - IV Contrast Only In Process Unspecified. EDMS 15:09 No provider procedures requiring assistance completed. IV discontinued, intact, bp bleeding controlled, No redness/swelling at site. Pressure dressing applied. 15:32 Provided Education on: follow up, rx teaching. as6 Administered Medications: 14:22 Drug: Ciprofloxacin IVPB 400 mg 200 ml IVPB once over 60 mins Volume: 200 ml; Route: bp IVPB; Infused Over: 60 mins; Site: right forearm; 15:32 Follow up: IV Status: Completed infusion; IV Intake: 100ml bp 14:22 Drug: metroNIDAZOLE IVPB 500 mg 100 ml IVPB at 200 ml/hr once over 30 mins Volume: 100 bp ml; Route: IVPB; Rate: 200 ml/hr; Infused Over: 30 mins; Site: right forearm; 15:32 Follow up: Response: No adverse reaction; IV Status: Completed infusion; IV Intake: as6 100ml 15:32 Follow up: IV Status: Completed infusion; IV Intake: 100ml bp 14:22 Drug: NS 0.9% IV 500 ml IV at bolus once Route: IV; Rate: bolus; Site: right forearm; bp 15:32 Follow up: IV Status: Completed infusion; IV Intake: 500ml bp 15:32 Follow up: Response: No adverse reaction; IV Status: Completed infusion; IV Intake: as6 500ml Medication: 15:32 VIS not applicable for this client. as6 Intake: 15:32 IV: 500ml; Total: 500ml. bp 15:32 IV: 500ml; Total: 1000ml. as6 15:32 IV: 100ml; Total: 1100ml. bp 15:32 IV: 100ml; Total: 1200ml. as6 15:32 IV: 100ml; Total: 1300ml. bp Outcome: 14:38 Discharge ordered by . [email or web address] 15:09 Discharged to home ambulatory, with family, bp 15:09 Condition: stable 15:09 Discharge instructions given to patient, Instructed on discharge instructions, follow up and referral plans. medication usage, Demonstrated understanding of instructions, follow-up care, medications, 15:32 Patient left the ED. as6 Signatures: Dispatcher [employer] EDMS Yordy Syed, RN RN bp Sharmaine Barajas MD MD sp3 Will Cage RN RN as6 Lexie Castro RN RN mb9 Crystal Bryan ra3 Corrections: (The following items were deleted from the chart) 14:22 14:00 BP 184 / 103; Pulse 63bpm; Resp 16bpm; Pulse Ox 97%; bp bp
--- NOTE | 2024-01-10 14:39 | EDPHYS ---
Physician Documentation [facility] Name: Devon Feliz Age: 73 yrs Sex: Male : 1950 Arrival Date: 01/10/2024 Time: 11:35 Bed 17 Private MD: ED Physician Sharmaine Barajas HPI: 01/09 12:26 This 73 yrs old Male presents to ER via Ambulatory with complaints of Constipation. sp3 12:26 73-year-old male with history of diabetes, hypertension, CKD now presents with chief sp3 complaint abdominal pain and constipation with "teaspoon size" bowel movements sporadically over the last few days. Patient denies vomiting but endorses nausea. He also denies fever, URI symptoms, chest pain, shortness of breath, back pain, leg symptoms, rash, bleeding, or any other signs or symptoms on ROS at this time.. Historical: - Allergies: 11:45 No Known Allergies; mb9 - PMHx: 11:45 diabetes mellitus; Hypertensive disorder; kidney problems; mb9 - PSHx: 11:45 Coronary artery bypass graft; mb9 - Immunization history:: Adult Immunizations up to date. - Infectious Disease History:: Denies. - Social history:: Smoking status: Patient denies any tobacco usage or history of. ROS: 12:27 Constitutional: Negative for fever, chills, and weight loss, Eyes: Negative for injury, sp3 pain, redness, and discharge, ENT: Negative for injury, pain, and discharge, Neck: Negative for injury, pain, and swelling, Cardiovascular: Negative for chest pain, palpitations, and edema, Respiratory: Negative for shortness of breath, cough, wheezing, and pleuritic chest pain, Back: Negative for injury and pain, MS/Extremity: Negative for injury and deformity, Skin: Negative for injury, rash, and discoloration, Neuro: Negative for headache, weakness, numbness, tingling, and seizure, Psych: Negative for depression, anxiety, suicide ideation, homicidal ideation, and hallucinations, Allergy/Immunology: Negative for hives, rash, and allergies, Endocrine: Negative for neck swelling, polydipsia, polyuria, polyphagia, and marked weight changes, Hematologic/Lymphatic: Negative for swollen nodes, abnormal bleeding, and unusual bruising, 12:27 All other systems are negative, Exam: 12:27 Constitutional: This is a well developed, well nourished patient who is awake, alert, sp3 and in no acute distress. Head/Face: Normocephalic, atraumatic. Eyes: Pupils equal round and reactive to light, extra-ocular motions intact. Lids and lashes normal. Conjunctiva and sclera are non-icteric and not injected. Cornea within normal limits. Periorbital areas with no swelling, redness, or edema. Neck: Trachea midline, no thyromegaly or masses palpated, and no cervical lymphadenopathy. Supple, full range of motion without nuchal rigidity, or vertebral point tenderness. No Meningismus. Chest/axilla: Normal chest wall appearance and motion. Nontender with no deformity. No lesions are appreciated. Cardiovascular: Regular rate and rhythm with a normal S1 and S2. No gallops, murmurs, or rubs. Normal PMI, no JVD. No pulse deficits. Respiratory: Lungs have equal breath sounds bilaterally, clear to auscultation and percussion. No rales, rhonchi or wheezes noted. No increased work of breathing, no retractions or nasal flaring. Abdomen/GI: Soft, non-tender, with normal bowel sounds. No distension or tympany. No guarding or rebound. No evidence of tenderness throughout. Back: No spinal tenderness. No costovertebral tenderness. Full range of motion. Skin: Warm, dry with normal turgor. Normal color with no rashes, no lesions, and no evidence of cellulitis. Vital Signs: 11:44 Pulse 78; Resp 18; Temp 97.8; Pulse Ox 97% on R/A; Weight 90.72 kg; Height 6 ft. 0 in. mb9 ; Pain 5/10; 11:47 BP 165 / 89; mb9 12:58 BP 179 / 79; Pulse 119; Resp 16; Pulse Ox 99% ; bp 14:00 BP 165 / 89; Pulse 63; Resp 16; Pulse Ox 97% ; bp 15:08 BP 167 / 85; Pulse 75; Resp 16; Pulse Ox 99% ; bp 11:44 Body Mass Index 27.12 (90.72 kg, 182.88 cm) mb9 11:44 Pain Scale: Adult mb9 MDM: 12:00 Patient medically screened. sp3 12:27 Data reviewed: vital signs, nurses notes, lab test result(s), radiologic studies. ED sp3 course: 73-year-old male with PMH above now with constipation and a benign abdominal exam. We will obtain laboratory values, CT scan of the abdomen and pelvis and once we ensure no critical pathology, we will give magnesium citrate and possible enema to help with patient's symptoms. I am not highly suspicious for vascular pathology, infection/sepsis, colitis, or any other critical pathology at this time.. 14:38 ED course: CT demonstrates diverticulitis without significant abscess or other sp3 formation. Laboratory values are within normal limits. We will safely discharge him home on p.o. antibiotics after first dose IV antibiotics and follow-up to PCP. No obstruction noted.. 01/09 12:01 Order name: CBC with Diff; Complete Time: 13:52 sp3 01/09 12:01 Order name: CMP; Complete Time: 14:37 sp3 01/09 12:01 Order name: Lipase; Complete Time: 14:37 sp3 01/09 12:01 Order name: CT Abd/Pelvis - IV Contrast Only; Complete Time: 13:52 sp3 01/09 12:01 Order name: IV Saline Lock; Complete Time: 12:39 sp3 01/09 12:01 Order name: Labs collected and sent; Complete Time: 12:39 sp3 01/09 13:17 Order name: Labs - recollect needed: Green Top Only - hemolyzed; Complete Time: 13:59 hb 01/09 13:53 Order name: Recheck Vital Signs; Complete Time: 13:59 sp3 Administered Medications: 14:22 Drug: Ciprofloxacin IVPB 400 mg 200 ml IVPB once over 60 mins Volume: 200 ml; Route: bp IVPB; Infused Over: 60 mins; Site: right forearm; 15:32 Follow up: IV Status: Completed infusion; IV Intake: 100ml bp 14:22 Drug: metroNIDAZOLE IVPB 500 mg 100 ml IVPB at 200 ml/hr once over 30 mins Volume: 100 bp ml; Route: IVPB; Rate: 200 ml/hr; Infused Over: 30 mins; Site: right forearm; 15:32 Follow up: Response: No adverse reaction; IV Status: Completed infusion; IV Intake: as6 100ml 15:32 Follow up: IV Status: Completed infusion; IV Intake: 100ml bp 14:22 Drug: NS 0.9% IV 500 ml IV at bolus once Route: IV; Rate: bolus; Site: right forearm; bp 15:32 Follow up: IV Status: Completed infusion; IV Intake: 500ml bp 15:32 Follow up: Response: No adverse reaction; IV Status: Completed infusion; IV Intake: as6 500ml Disposition Summary: 01/10/24 14:38 Discharge Ordered Notes: Location: Home sp3 Condition: Stable sp3 Diagnosis - Diverticulitis of large intestine without perforation or abscess without bleeding sp3 Followup: sp3 - With: Private Physician - When: Upon discharge from the Emergency Department - Reason: Continuance of care Discharge Instructions: - Discharge Summary Sheet sp3 - Diverticulitis sp3 Forms: - Medication Reconciliation Form sp3 - Thank You Letter sp3 - Antibiotic Education sp3 - Prescription Opioid Use sp3 - Patient Portal Instructions sp3 - Leadership Thank You Letter sp3 Prescriptions: - Cipro 500 mg Oral Tablet - take 1 tablet ORAL route every 12 hours for 10 days; 20 tablet; Refills: 0, sp3 Product Selection Permitted - Flagyl 500 mg Oral Tablet - take 1 tablet ORAL route every 8 hours for 10 days; 30 tablet; Refills: 0, sp3 Product Selection Permitted Signatures: Dispatcher [employer] EDMS Bibi Sweeney RN RN Yordy Syed RN RN Sharmaine French MD MD sp3 Lexie Castro RN RN mb9 Will Cage RN as6 Corrections: (The following items were deleted from the chart) 12:02 12:01 CBC+H.LAB.BRZ ordered. EDMS EDMS 12:02 12:01 COMPREHENSIVE METABOLIC PANEL+C.LAB.BRZ ordered. EDMS EDMS 12:02 12:01 LIPASE+C.LAB.BRZ ordered. EDMS EDMS 12:02 12:01 Urinalysis+U.LAB.BRZ ordered. EDMS EDMS
[2024-01-10 21:48] VITALS: BP 167/85; TEMP 97.8; O2SAT 99
== END 2024-01-10 15:32 | disposition home or self-care (01) ==
LOC: ER 11:35
DX: K57.32 Diverticulitis of large intestine without perforation or abscess without bleeding (principal); Z95.1 Presence of aortocoronary bypass graft
CPT/HCPCS: 96365; 96368; 85025; 36415; 83690; 80053; 74177; 99284; Q9967; J0744; J7040

== ENCOUNTER 2024-06-16 22:12 | Inpatient (IN) | payer MEDICARE ==
--- OUTSIDE RECORDS SUMMARY | 2024-06-16 23:36 | XMS REPORT | Continuity of Care Document ---
Author Name Unknown Address [address] [facility] [address] [place] [address] [facility] thconnect Address [address] [facility] [address] [place] [address] Care Team Providers Care Child Watch Attendant Name Role Phone SHERRY COLINDRES Primary Care Physician Unavaila Davina Graf Attending Clinician Unavailable Ayaan GARCIA, Gage Okeefe Attending Clinician UnavailLIZZ Saldaña Attending Clinician Unavailable Doctor Unassigned, [place] Attending Clinician U LUNA Calvert Attending Clinician Unavailable MELODY VILLA Attending Clinician Unavailable Melody Villa MD Attending Clinician [phone] Lizz Partida MD Attending Clinician [phone] [facility] Sleep Lab Bed Attending Clinician Unavail Juan Pablo Adhikari MD Attending Clinician JUAN PABLO ADAMS Attending Clinician Unavaila JUAN PABLO Franco Attending Clinician Unavaila ble 2, [facility] Lab Attending Clinician Unavailable RADIOLOGY Attending Clinician Unavailable Radiology Attending Clinician Unavailable Pob, [facility] Lab Main Attending Clinician UnavailSherry Bautista DO Attending Clinician [phone], [facility] Lab Attending Clinician Unavailable AMELIE ERNANDEZ Attending Clinician Unavailable Pc, [facility] Vascular Room 1 - Attending Clinician Un available Luna Ortega DO Attending Clinician [phone] Pankaj Stockton MD Attending Clinician [phone] PANKAJ STOCKTON Attending Clinician Unavailable Prachi Butcher Attending Clinician [phone] Yuval CREWS, Andres Attending Clinician [phone] Danilo Danielle Anavella Attending Cli nician Unavailable Jodi Davenport Attending Clinician [phone] Davina Montenegro Admitting Clinician Unavailable Sherry Colindres Admitting Clinician Unavailable LUNA ORTEGA Admitting Clinician Unavailable MELODY VILLA Admitting Clinician Unavailable Frantz Danielle Anav Admitting Clinician U mushtaq Barakat MD, Andres Admitting Clinician [phone] Payers Payer Name Policy Type Policy Number Effective Date Expirati on Date Source JESSICA/LALAP MEDICARE ADVANTAGE [id number] 2019 00:00:00 [employer] (MEDICARE REPLACEMENT HMO) [id number] 2022 00:00:00 [employer] MEDIC[employer] [id number] 2020 00:00:00 [facility] [id number] Problems Condition Name Condition Details Condition Category Status Onset Date Resolution Date Last Treatment Date Treating Clinician Comments Source Stage 3 chronic kidney disease, unspecifie d whether stage 3a or 3b CKD Stage 3 chronic kidney disease, unspecifie d whether stage 3a or 3b CKD Disease Active -13 00:00: 00 General acute hospital PAD (periphera l artery disease) PAD (periphera l artery disease) Disease Active 04 00:00: 00 General acute hospital Chronic heart failure with preserved ejection fraction Chronic heart failure with preserved ejection fraction Disease Active 01-25 00:00: 00 General acute hospital CAD (coronary artery disease) of artery bypass graft CAD (coronary artery disease) of artery bypass graft Disease Active 05-06 00:00: 00 General acute hospital Blood in stool Blood in stool Disease Active 02-13 00:00: 00 Overview: Formattin g of this note might be different from the original. Added automatic ally from request for surgery [id number] General acute hospital Esophageal reflux Esophageal reflux Disease Active 02-03 00:00: 00 Overview: Formattin g of this note might be different from the original. Added automatic ally from request for surgery [id number] General acute hospital Rectal bleeding Rectal bleeding Disease Active 02-03 00:00: 00 Overview: Formattin g of this note might be different from the original. Added automatic ally from request for surgery [id number] General acute hospital Frequent PVCs Frequent PVCs Disease Active 01-23 00:00: 00 General acute hospital Coronary artery disease involving [place] coronary artery of [place] heart with angina pectoris Coronary artery disease involving [place] coronary artery of [place] heart with angina pectoris Disease Active 01-23 00:00: 00 General acute hospital Diverticul itis Diverticul itis Disease Active 01-23 00:00: 00 General acute hospital NSVT (nonsustai rajwinder ventricula r tachycardi a) NSVT (nonsustai rajwinder ventricula r tachycardi a) Disease Active 01-23 00:00: 00 General acute hospital Frequent PVCs Frequent PVCs Disease Active 01-23 00:00: 00 General acute hospital Essential hypertensi on Essential hypertensi on Disease Active 01-23 00:00: 00 General acute hospital Bradycardi a Bradycardi a Disease Active 01-23 00:00: 00 General acute hospital Coronary artery disease involving [place] coronary artery of [place] heart with angina pectoris Coronary artery disease involving [place] coronary artery of [place] heart with angina pectoris Disease Active 01-23 00:00: 00 General acute hospital History of CVA (cerebrova scular accident) History of CVA (cerebrova scular accident) Disease Active 09-24 00:00: 00 General acute hospital HTN (hypertens ion) HTN (hypertens ion) Disease Active General acute hospital Diabetes mellitus Diabetes mellitus Disease Active General acute hospital HLD (hyperlipi demia) HLD (hyperlipi demia) Disease Active General acute hospital Atrial fibrillati on Atrial fibrillati on Disease Active General acute hospital Allergies, Adverse Reactions, Alerts Allergy Name Allergy Type Status Severity Reaction(s) Onset Date Inactive Date Treating Clinician Comments Source No Known Allergie s DA Active U 05-02 00:00: 00 [facility] NO KNOWN ALLERGIE S Drug Class Active General acute hospital Social History Social Habit Start Date Stop Date Quantity Comments Source History of tobacco use Cigarette Smoker [facility] Alcohol intake 2022-06-25 00:00:00 2022-06-25 00:00:00 Current non-drinker of alcohol (finding) [facility] Exposure to SARS-CoV-2 (event) 2022-05-15 00:00:00 2022-05-25 23:31:00 Not sure [facility] Cigarettes smoked current (pack per day) - Reported 2019-04-03 00:00:00 2019-04-03 00:00:00 [facility] Cigarette pack-years 2019-04-03 00:00:00 2019-04-03 00:00:00 [facility] Tobacco use and exposure 2019-04-03 00:00:00 2019-04-03 00:00:00 Smokeless tobacco non-user [facility] Sex Assigned At 1950 00:00:00 1950 00:00:00 [facility] Smoking Status Start Date Stop Date Source Ex-smoker 2019-04-03 00:00:00 2019-04-03 00:00:00 [facility] Medications Ordered Medication Name Filled Medication Name Start Date Stop Date Current Medication? Ordering Clinician Indication Dosage Frequency Signature (SIG) Comments Components Source iopamidol (ISOVUE 370-500 mL) injection 65 mL 05-26 08:15: 00 05-26 08:15 :00 No [id number] 65mL 65 mL, Intravenou s, ONCE, 1 dose, On Sun05/26/22 at 0315, Routine General acute hospital amoxicillin 875 mg tablet 05-26 00:00: 00 Yes [id number] 875mg Take 1 tablet by mouth in the morning and 1 tablet in the evening. [facility] acute hospital furosemide 20 mg tablet 3-14 00:00: 00 Yes 20mg Take 1 tablet by mouth daily. General acute hospital aMILoride 5 mg tablet 01-26 00:00: 00 Yes 5mg Take 1 tablet by mouth daily. [facility] acute hospital fluticasone 50 mcg/actuati on nasal spray 01-25 11:09: 43 Yes 1{spray } Use 1 [place] in each nostril daily. [facility] acute hospital glipiZIDE 5 mg tablet 01-25 11:09: 43 Yes 5mg Take 5 mg by mouth daily. [facility] acute hospital omeprazole 40 mg capsule 01-25 11:09: 43 Yes 40mg Take 40 mg by mouth daily. [facility] acute hospital sucralfate 1 gram tablet 01-25 11:09: 43 Yes 1g Take 1 g by mouth before meals and at bedtime. [facility] acute hospital traZODONE 50 mg tablet 01-25 11:09: 43 Yes 50mg Take 50 mg by mouth at bedtime. [facility] acute hospital dulaglutide (TRULICITY) 0.75 mg/0.5 mL PnIj 01-25 11:09: 43 Yes inject under the skin. General acute hospital DOCUSATE SODIUM ORAL 01-25 11:09: 43 Yes Take by mouth daily. [facility] acute hospital aspirin 81 mg chewable tablet 01-25 11:09: 43 Yes 81mg Take 81 mg by mouth daily. General acute hospital lidocain/me -salicyl/ca ps/menth (1ST MEDX-PATCH WITH LIDOCAINE TOPICAL) 01-25 11:09: 43 Yes 2{patch } Apply 2 Patches to area(s) daily. General acute hospital LANCETS & BLOOD GLUCOSE STRIPS MISC 2019-09 11:27: 47 Yes General acute hospital apixaban 5 mg tablet 10-28 00:00: 00 Yes [id number] 5mg Take 1 tablet by mouth 2 (two) times daily. Indication s: atrial fibrillati on General acute hospital metoprolol tartrate 50 mg tablet 05-09 00:00: 00 Yes [id number] 50mg Take 1 tablet by mouth 2 (two) times daily. General acute hospital atorvastati n 40 mg tablet 05-09 00:00: 00 Yes [id number] 40mg Take 1 tablet by mouth at bedtime. General acute hospital polyethylen e glycol 17 gram/dose powder 05-09 00:00: 00 Yes 17g Take 17 g by mouth 2 (two) times daily as needed for Constipati on. General acute hospital LOVAZA, omega-3-aci d ethyl esters, 1 gram capsule 03-25 00:00: 00 Yes 2{capsu le} Take 2 capsules by mouth daily. General acute hospital allopurinol 300 mg tablet 03-01 00:00: 00 Yes 300mg Take 300 mg by mouth daily. General acute hospital Vital Signs Vital Name Observation Time Observation Value Comments S ource Systolic blood pressure 2022-05-26 07:00:00 146 mm[Hg] [facility] Diastolic blood pressure 2022-05-26 07:00:00 67 mm[Hg] [facility] Heart rate 2022-05-26 07:00:00 52 /min [facility] Respiratory rate 2022-05-26 07:00:00 18 /min [facility] Oxygen saturation in Arterial blood by Pulse oximetry 2022-05-26 07:00:00 93 /min [facility] Body temperature 2022-05-26 04:31:00 36.78 Deborah [facility] Body height 2022-05-26 04:31:00 182.9 cm [facility] Body weight 2022-05-26 04:31:00 105.325 kg [facility] BMI 2022-05-26 04:31:00 31.49 kg/m2 [facility] Systolic blood pressure 2022-01-04 15:54:00 153 mm[Hg] [facility] Diastolic blood pressure 2022-01-04 15:54:00 65 mm[Hg] [facility] Heart rate 2022-01-04 15:49:00 74 /min [facility] Body weight 2022-01-04 15:49:00 104.781 kg [facility] BMI 2022-01-04 15:49:00 30.48 kg/m2 [facility] Oxygen saturation in Arterial blood by Pulse oximetry 2022-01-04 15:49:00 100 /min [facility] Procedures Procedure Date / Time Performed Performing Clinician Source AUTHORIZATION FOR RELEASE OF PHI 2022-10-06 06:01:00 Doctor Unassigned, [place] [facility] CT ABDOMEN PELVIS W CONTRAST 2022-05-26 07:21:21 Melody Villa [facility] COMP. METABOLIC PANEL ([id number]) 2022-05-26 05:05:00 Melody Villa [facility] CBC WITH DIFF 2022-05-26 05:05:00 [facility] (ID NOW RAPID TESTING) 2022-05-26 05:05:00 Melody Villa [facility] CONSENT/REFUSAL FOR DIAGNOSIS AND TREATMENT 2022-05-26 03:55:22 Doctor Unassigned, [place] [facility] MEDICAL RELEASE/CLEARANCE FORMS 2022-05-22 05:01:00 Doctor Unassigned, [place] [facility] SLEEP STUDY DATA REPORT 2022-02-24 05:01:00 Doct or Unassigned, [place] [facility] EXTERNAL PROVIDER - ADC REFERRAL 2022-01-05 05:01:00 Doctor Unassigned, [place] [facility] INSURANCE CORRESPONDENCE 2022-01-03 05:01:00 Doc tor Unassigned, [place] [facility] Encounters Start Date/Time End Date/Time Encounter Type Admission Type Attending Clinicians Care Facility Care Department Encounter ID Source 2021-07-22 21:55:33 Emergency [facility] [id number] General acute hospital 2023-05-05 08:10:00 2023-05-06 16:43:00 Inpatient EL Davina Montenegro HCAPM INTE.02 [id number] [facility] 2023-05-05 22:35:00 2023-05-05 22:35:00 Outpatient Davina Montenegro HCACL LABO [id number] [facility] 2022-12-20 00:00:00 2022-12-20 00:00:00 Case Management HarjeetGage diaz SHIVA [place] 1.2.840.114 350.1.13.10 4.2.7.2.686 [id number] General acute hospital 2022-12-11 00:00:00 2022-12-11 00:00:00 Case Management Gage Kuo SHIVA SHARPRaul [place] 1.2.840.114 350.1.13.10 4.2.7.2.686 [id number] General acute hospital 2022-11-29 00:00:00 2022-11-29 00:00:00 Case Management Gage Kuo SHIVA [place] 1.2.840.114 350.1.13.10 4.2.7.2.686 [id number] General acute hospital 2022-10-10 10:00:00 2022-10-10 10:00:00 Outpatient LIZZ TODD [facility] [id number] General acute hospital 2022-10-06 00:00:00 2022-10-06 00:00:00 Orders Only Doctor Unassigned, [place] [facility] 1.2.840.114 350.1.13.10 4.2.7.2.686 [id number] General acute hospital 2022-07-24 00:00:00 2022-07-24 00:00:00 Outpatient DMG DM [id number] [facility] 2022-07-24 00:00:00 2022-07-24 00:00:00 Outpatient DMG [facility] [id number] [facility] 2022-07-24 00:00:00 2022-07-24 00:00:00 Outpatient DMG DM [id number] [facility] 2022-06-22 12:07:00 2022-06-22 14:53:00 Emergency X LUNA ORTEGA [facility] E[facility] [id number] General acute hospital 2022-06-22 00:00:00 2022-06-22 00:00:00 Outpatient DMG [facility] [id number] [facility] 2022-05-25 23:34:00 2022-05-26 03:42:00 Emergency X MELODY VILLA [facility] ERT [id number] General acute hospital 2022-05-25 23:34:00 2022-05-26 03:42:00 Emergency Melody Villa [facility] 1.0.114 350.1.13.10 4.2.7.2.686 [id number] General acute hospital 2022-05-23 00:00:00 2022-05-23 00:00:00 Telephone Lizz Partida [facility] PROFESSIO [facility] 1.840.114 350.1.13.10 4.2.7.2.686 [id number] General acute hospital 2022-05-22 00:00:00 2022-05-22 00:00:00 Orders Only Doctor Unassigned, [place] [facility] 1.2840.114 350.1.13.10 4.2.7.2.686 [id number] General acute hospital 2022-03-11 19:30:00 2022-03-11 19:30:00 Outpatient R [facility] [id number] General acute hospital 2022-02-24 19:30:00 2022-02-24 22:00:00 [employer] Visit 1, [facility] Sleep Lab Bed Juan Pablo Adams [facility] 1.2.840.114 350.1.13.10 4.2.7.2.686 [id number] General acute hospital 2022-02-24 19:30:00 2022-02-24 19:30:00 Outpatient R JUAN PABLO ADAMS STRANYHaley [facility] [id number] General acute hospital 2022-02-24 00:00:00 2022-02-24 00:00:00 Orders Only Doctor Unassigned, [place] [facility] 1.2.840.114 350.1.13.10 4.2.7.2.686 [id number] General acute hospital 2022-01-05 00:00:00 2022-01-05 00:00:00 Orders Only Doctor Unassigned, [place] [facility] 1.2.840.114 350.1.13.10 4.2.7.2.686 [id number] General acute hospital 2022-01-04 11:30:00 2022-01-04 11:45:00 [employer] Controller Visit 2, [facility] 1.2.840.114 350.1.13.10 4.2.7.2.686 [id number] General acute hospital 2022-01-04 11:30:00 2022-01-04 11:30:00 [id number] 2022-01-04 10:40:00 2022-01-04 11:10:46 [facility] [id number] [facility] 2022-01-04 10:40:00 2022-01-04 11:10:46 Office Visit Lizz Partida [facility] 1.2840.114 350.1.13.10 4.2.7.2.686 [id number] General acute hospital 2022-01-03 00:00:00 2022-01-03 00:00:00 Orders Only Doctor Unassigned, [place] [facility] 1.2840.114 350.1.13.10 4.2.7.2.686 [id number] General acute hospital 2021-12-29 14:29:19 2021-12-29 23:59:00 Outpatient R RADIOLOGY [facility] [id number] General acute hospital 2021-12-29 14:29:19 2021-12-29 23:59:00 Hospital Encounter Radiology [facility] 1.20.114 350.1.13.10 4.2.7.2.686 [id number] General acute hospital 2021-12-29 15:45:00 2021-12-29 16:00:00 [employer] Visit Pob, Adc Lab Main Sherry Colindres [facility] 1.2.114 350.1.13.10 4.2.7.2.686 [id number] General acute hospital 2021-12-29 00:00:00 2021-12-29 00:00:00 Orders Only Doctor Unassigned, [place] [facility] 1.2840.114 350.1.13.10 4.2.7.2.686 [id number] General acute hospital 2021-12-14 00:00:00 2021-12-14 00:00:00 Telephone Lizz Partida [facility] 1.20.114 350.1.13.10 4.2.7.2.686 [id number] General acute hospital 2021-12-05 00:00:00 2021-12-05 00:00:00 [facility] 1.2.840.114 350.1.13.10 4.2.7.2.686 [id number] General acute hospital 2021-11-29 00:00:00 2021-11-29 00:00:00 Orders Only Doctor Unassigned, [place] [facility] 1.2.840.114 350.1.13.10 4.2.7.2.686 [id number] General acute hospital 2021-11-22 15:20:00 2021-11-22 15:20:00 [facility] [id number] [facility] 2021-11-01 15:20:00 2021-11-01 15:20:00 [facility] [id number] [facility] 2021-01-26 00:00:00 2021-01-26 00:00:00 [facility] 1.2.840.114 350.1.13.10 4.2.7.2.686 [id number] General acute hospital 2021-01-25 11:00:00 2021-01-25 11:30:02 [facility] 1.2.840.114 350.1.13.10 4.2.7.2.686 [id number] General acute hospital 2021-01-25 11:00:00 2021-01-25 11:30:02 [facility] [id number] [facility] 2021-01-25 00:00:00 2021-01-25 00:00:00 [facility] 1.2.840.114 350.1.13.10 4.2.7.2.686 [id number] General acute hospital 2021-01-25 00:00:00 2021-01-25 00:00:00 [facility] 1.2.840.114 350.1.13.10 4.2.7.2.686 [id number] General acute hospital 2021-01-21 09:53:12 2021-01-21 10:08:12 [employer] Visit 1, Adc Lab Jaquan [facility] 1.2840.114 350.1.13.10 4.2.7.2.686 [id number] General acute hospital 2021-01-21 09:15:00 2021-01-21 09:15:00 [facility] [id number] [facility] acute hospital 2021-01-21 00:00:00 2021-01-21 00:00:00 Orders Only Doctor Unassigned, [place] [facility] 1.2840.114 350.1.13.10 4.2.7.2.686 [id number] General acute hospital 2020-12-19 12:15:00 2020-12-19 12:15:00 Outpatient AMELIE HERBERT [facility] [id number] General acute hospital 2020-12-15 00:00:00 2020-12-15 00:00:00 [facility] 1.2.114 350.1.13.10 4.2.7.2.686 [id number] General acute hospital 2020-11-21 13:20:00 2020-11-21 13:20:00 Outpatient AMELIE HERBERT [facility] [id number] General acute hospital 2020-08-25 12:40:43 2020-08-25 13:40:43 [employer] Visit , [facility] Vascular Room 1 - Jaquan [facility] 1.840.114 350.1.13.10 4.2.7.2.686 [id number] General acute hospital 2020-08-25 13:00:00 2020-08-25 13:00:00 Outpatient R [facility] [id number] General acute hospital 2020-08-02 13:00:37 2020-08-02 13:33:57 [employer] Visit , [facility] Vascular Room 1 - Jaquan [facility] 1.840.114 350.1.13.10 4.2.7.2.686 [id number] General acute hospital 2020-08-02 13:00:00 2020-08-02 13:00:00 Outpatient R [facility] [id number] General acute hospital 2020-07-28 11:12:44 2020-07-28 11:41:29 Office Visit Jaquan [facility] 1.840.114 350.1.13.10 4.2.7.2.686 [id number] General acute hospital 2020-07-28 11:00:00 2020-07-28 11:00:00 Outpatient R JAQUAN [facility] [address] [id number] General acute hospital 2020-07-28 00:00:00 2020-07-28 00:00:00 Orders Only Doctor Unassigned, [place] [facility] 1.84.114 350.1.13.10 4.2.7.2.686 [id number] General acute hospital 2020-07-01 15:23:00 2020-07-01 18:58:00 Emergency Luna Ortega [facility] 1.2840.114 350.1.13.10 4.2.7.2.686 [id number] General acute hospital 2020-07-01 00:00:00 2020-07-01 00:00:00 Orders Only Doctor Unassigned, [place] [facility] 1.2.840.114 350.1.13.10 4.2.7.2.686 [id number] General acute hospital 2020-01-26 08:12:32 2020-01-26 11:46:48 Office Visit Jaquan [facility] 1.284.114 350.1.13.10 4.2.7.2.686 [id number] General acute hospital 2020-01-26 11:00:00 2020-01-26 11:00:00 [facility] [id number] acute [facility] 2019-11-27 09:04:11 2019-11-27 10:58:00 Office Visit Pankaj Stockton [facility] 1.2840.114 350.1.13.10 4.2.7.2.686 [id number] General acute hospital 2019-11-27 09:15:00 2019-11-27 09:15:00 Outpatient R PANKAJ STOCKTON [facility] [id number] General acute hospital 2019-11-25 14:45:00 2019-11-25 14:45:00 Outpatient R PANKAJ STOCKTON [facility] [id number] General acute hospital 2019-10-29 00:00:00 2019-10-29 00:00:00 [facility] 1.2.840.114 350.1.13.10 4.2.7.2.686 [id number] General acute hospital 2019-10-28 10:11:05 2019-10-28 13:42:58 [facility] 1.2.840.114 350.1.13.10 4.2.7.2.686 [id number] General acute hospital 2019-10-28 11:36:47 2019-10-28 11:51:47 [employer] Visit 2, [facility] 1.2.840.114 350.1.13.10 4.2.7.2.686 [id number] General acute hospital 2019-10-28 00:00:00 2019-10-28 00:00:00 Orders Only Doctor Unassigned, [place] [facility] 1.2.840.114 350.1.13.10 4.2.7.2.686 [id number] General acute hospital 2019-10-12 12:38:01 2019-10-12 13:31:00 Emergency Prachi Brody [facility] 1.2.840.114 350.1.13.10 4.2.7.2.686 [id number] General acute hospital 2019-06-06 13:43:38 2019-06-06 15:21:53 [facility] 1.2.840.114 350.1.13.10 4.2.7.2.686 [id number] General acute hospital 2019-05-22 13:15:27 2019-05-22 13:30:27 Office Visit Andres Barakat [facility] 1.2.840.114 350.1.13.10 4.2.7.2.686 [id number] General acute hospital 2019-05-09 19:57:00 2019-05-20 11:30:00 [facility] [id number] [facility] Karma eran 2019-05-06 05:07:00 2019-05-09 18:15:00 Hospital Encounter Andres Barakat [facility] 1..840.114 350.1.13.10 4.2.7.2.686 [id number] General acute hospital 2019-04-28 00:00:00 2019-04-28 00:00:00 Case Management Jodi Davenport [facility] 1..840.114 350.1.13.10 4.2.7.2.686 [id number] General acute hospital Results Test Description Test Time Test Comments Results Result Co mments Source GLUCOSE BEDSIDE [id number] 08:21:00* Test Item Value Reference Range Interpretation Comme nts GLUCOSE BEDSIDE TESTING (nimo t code = GLUBED) 93 mg/dL 70-110 N - XR CHEST 1 [id number] 07:09:00 [facility] 1950 Sex: M Name: UJLIA FELIZ [facility] : 1950 Age/S: 73 / M [address] Unit #: [id number] Loc: [place] [address] Phys: Shu Gant MD Cardiology Acct: [id number] Dis Date: Status: ADM IN PHONE #: [phone] Exam Date: 05/06/2023 0423 FAX #: Reason: Post implanted device EXAMS: CPT: [id number] XR CHEST 1 V [id number] Fluoro Time: DAP (Gy m2): Air Kerma (mGy): Location: H 77 EXAM: - XRCHEST 1 V DATE: 05/06/2023 10:31 AM HISTORY: Post implanted device COMPARISON: Chest x-ray 05/05/2023FINDINGS: No airspace consolidation or pleural effusions. No pneumothorax. Stable enlargement of the cardiac silhouette. Stable position of the single lead left-sided pacemaker. IMPRESSION: No acute c ardiopulmonary abnormality. [id number] Reported and signed by: Alethea Ruiz M.D. CC: Sherry Colindres DO; Shu Castaneda Cardiology [employer] CREWS; Davina Montenegro MD PAGE 1 Signed Report Name: JULIA FELIZ [facility] : 1950 Age/S: 73 / M [address] Unit #: [id number] Loc: [place] [address] Phys: Shu Gant MD Cardiology Acct: [id number] Dis Date: Status: ADM IN PHONE #: [phone] Exam Date: 05/06/2023 0423 FAX #: Reason: Post implanted device EXAMS: CPT: [id number] XR CHEST 1 V 70766 Fluoro Time: DAP (Gy m2): Air Kerma (mGy): (Continued) Technologist: Yessica Santana Trnvab Date/Time: 05/06/2023 (070 9) [email or web address] Orig Print D/T: S: 05/06/2023 (0712) PAGE 2 Signed ReportBASIC METABOLIC [id number] 06:01:00* Test Item Value Reference Range Interpretation Comme nts SODIUM (test code = NA) 139 mmol/L 134-147 N POTASSIUM (test code = K) 3.5 mmol/L 3.4-5.0 N CHLORIDE (test code = CL) 107 mmol/L 100-108 N CARBON DIOXIDE (test code = CO2) 28 mmol/L 21-32 N ANION GAP (test code = GAP) 4.0 GAP calc 4.0-15.0 N GLUCOSE (test code = GLU) 91 MG/DL 70-110 N BLOOD UREA NITROGEN (test code = BUN) 25 MG/DL 7-18 H GLOMERULAR FILTRATION RATE (test code = GFR) 59 estGFR >60 L The Glomerular Filtration Rate is a calculated parameterbased on serum Creatinine, patient age and sex. GFR valuesless than 60 mL/min/1.73 square meters are indicative ofChronic Kidney Disease. Values less than 15 mL/min/1.73square meters indicate Kidney failure. The calculation forGFR is based on the CKD-EPI (202) calculation. This formulais race indifferent and is the recommended formula for GFRby the National Kidney Foundation for Adults.The GFR will not calculate if the sex is unknown or if thepatient's age is <18 years. CREATININE (test code = CREAT) 1.3 MG/DL 0.8-1.3 N CALCIUM (test code = CA) 9.0 MG/DL 8.5-10.1 N CBC W/AUTO [id number] 05:48:00* Test Item Value Reference Range Interpretation Comme nts WHITE BLOOD CELL (test code = WBC) 8.6 K/mm3 3.5-11.0 N RED BLOOD CELL (test code = RBC) 3.99 M/mm3 4.70-6.10 L HEMOGLOBIN (test code = HGB) 12.5 G/DL 12.3-15.9 N HEMATOCRIT (test code = HCT) 37.1 % 35.8-46.7 N MEAN CELL VOLUME (test code = MCV) 93.0 Fl 86.3-98.9 N MEAN CELL HGB (test code = MCH) 31.3 pg 28.9-34.4 N MEAN CELL HGB CONCETRATION (test code = MCHC) 33.7 G/DL 32.1-34.5 N RED CELL DISTRIBUTION WIDTH (test code = RDW) 13.9 SD 11.5-14.5 N PLATELET COUNT (test code = PLT) 214 K/mm3 150-450 N MEAN PLATELET VOLUME (test c ode = MPV) 10.00 fL 7.0-9.6 H NEUTROPHIL % (test code = NT%) 66.2 % 40-76 N IMMATURE GRANULOCYTE % (test code = IG%) 0.5 % 0.0-5.0 N LYMPHOCYTE % (test code = LY%) 21.1 % 20.5-51.1 N MONOCYTE % (test code = MO%) 9.2 % 1.7-9.3 N EOSINOPHIL % (test code = EO%) 2.7 % 0.0-6.0 N BASOPHIL % (test code = BA%) 0.3 % 0.0-2.0 N NUCLEATED RBC % (test code = NRBC%) 0.0 /100WBC% 0.0-1.0 N NEUTROPHIL # (test code = NT#) 5.7 K/mm3 1.8-7.6 N IMMATURE GRANULOCYTE # (test code = IG#) 0.04 x10 3/uL 0.00-0.03 H LYMPHOCYTE # (test code = LY#) 1.8 K/mm3 0.6-3.0 N MONOCYTE # (test code = MO#) 0.8 K/mm3 0.2-1.5 N EOSINOPHIL # (test code = EO#) 0.2 K/mm3 0.0-0.4 N BASOPHIL # (test code = BA#) 0.0 K/mm3 0.0-0.2 N NUCLEATED RBC # (test code = NRBC#) 0.0 K/mm3 0.00-0.01 N MANUAL DIFF REQUIRED (test c ode = MDIFF) NO DIFF/SCN CRITERIA GLUCOSE BEDSIDE [id number] 19:59:00* Test Item Value Reference Range Interpretation Comme nts GLUCOSE BEDSIDE TESTING (nimo t code = GLUBED) 208 mg/dL 70-110 H - XR CHEST 1 [id number] 11:05:00 [facility]: 1950 Sex: M Name: JULIA FELIZ [facility]: 1950 Age/S: 73 / M [address] Unit #: [id number] Loc: [place] [address] Phys: Shu Gant MD Cardiology Acct: [id number] Dis Date: Status: ADM IN PHONE #: [phone] Exam Date: 05/05/2023 1054 FAX #: Reason: Post implanted device EXAMS: CPT:[id number] XR CHEST 1 V 16153 Fluoro Time: DAP (Gy m2): Air Kerma (mGy): EXAM: Portable chest x-ray,1 view Dictation location: C3 COMPARISON: None INDICATION: Post implanted device DISCUSSION: A single lead pacemaker is in place, with tip over the right ventricular apex. Prior median sternotomy is noted, possibly for CABG. Left atrial appendage clipping is noted. No pneumothorax, consolidation, or pleural effusion is seen. The cardiac silhouette is at the upper limits of normal in size. No acute bony abnormalities are identified. IMPRESSION: A single lead pacemaker is in place, with lead tip over the right ventricular apex. There is no evidence of pneumothorax or other acute abnormality. at 1105 Reported and signed by: Roderick Tobar M.D. CC: Sherry Colindres DO; Shu Castaneda Cardiology Stalin CREWS PAGE 1 Signed Report Name: [facility] [place] : 1950 Age/S: 73 / M [address] Unit #: [id number] Loc: [place] [address] Phys: Shu Gant MD Cardiology Acct: [id number] Dis Date: Status: ADM IN PHONE #: [phone] Exam Date: 05/05/2023 1054 FAX #: Reason: Post implanted device EXAMS: CPT: [id number] XR CHEST 1 V [id number] Fluoro Time: DAP (Gy m2): Air Kerma (mGy): (Continued) Technologist:RT Frank(R) Trnscb Date/Time: 05/05/2023 (1105) [email or web address] Orig Print D/T: S: 05/05/2023 (5085) PAGE 2 Signed ReportCOMPREHENSIVE METABOLIC [id number] 09:30:00* Test Item Value Reference Range Interpretation Comme nts SODIUM (test code = NA) 141 mmol/L 134-147 N POTASSIUM (test code = K) 4.0 mmol/L 3.4-5.0 N CHLORIDE (test code = CL) 110 mmol/L 100-108 H CARBON DIOXIDE (test code = CO2) 25 mmol/L 21-32 N ANION GAP (test code = GAP) 6.0 GAP calc 4.0-15.0 N GLUCOSE (test code = GLU) 177 MG/DL 70-110 H BLOOD UREA NITROGEN (test code = BUN) 24 MG/DL 7-18 H GLOMERULAR FILTRATION RATE (test code = GFR) 46 estGFR >60 L The Glomerular Filtration Rate is a calculated parameterbased on serum Creatinine, patient age and sex. GFR valuesless than 60 mL/min/1.73 square meters are indicative ofChronic Kidney Disease. Values less than 15 mL/min/1.73square meters indicate Kidney failure. The calculation forGFR is based on the CKD-EPI (2020) calculation. This formulais race indifferent and is the recommended formula for GFRby the National Kidney Foundation for Adults.The GFR will not calculate if the sex is unknown or if thepatient's age is <18 years. CREATININE (test code = CREAT) 1.6 MG/DL 0.8-1.3 H TOTAL PROTEIN (test code = PROT) 7.7 G/DL 6.4-8.2 N ALBUMIN (test code = ALB) 3.8 G/DL 3.4-5.0 N GLOBULIN (test code = GLOB) 3.9 GM/dL ALBUMIN/GLOBULIN RATIO (test code = A/G) 1.0 RATIO 1.2-2.2 L CALCIUM (test code = CA) 9.3 MG/DL 8.5-10.1 N BILIRUBIN TOTAL (test code = BILT) 0.40 MG/DL 0.2-1.2 N SGOT/AST (test code = AST) 19 Unit/L 15-37 N SGPT/ALT (test code = ALT) 31 Unit/L 12-78 N ALKALINE PHOSPHATASE TOTAL (test code = ALKP) 106 Unit/L 50-136 N LIPID PROFILE (CORONARY RISK)2023-05-05 09:30:00* Test Item Value Reference Range Interpretation Comme nts TRIGLYCERIDES (test code = TRIG) 258 MG/DL 0-150 H CHOLESTEROL (test code = CHOL) 150 MG/DL 133-200 N CHOLESTEROL/HDL RATIO (test code = CHOLHDL) 3.66 RATIO See_Comment RISK ASSOCIATED WITH CHOL/HDL RATIOS: RISK MALE FEMALE1/2 AVERAGE 3.43 3.27AVERAGE 4.97 4.442X AVERAGE 9.55 7.053X AVERAGE 23.39 11.04 NOTE THAT THE REFERENCE VALUE IS RELATED TO RISK LEVELS ASRECOMMENDED BY THE [facility]. [Automated message] The system which generated this result transmitted reference range: 0-. The reference range was not used to interpret this result as normal/abnormal. HDL CHOLESTEROL (test code = HDL) 41 MG/DL 40-59 N NON-HDL CHOLESTEROL (test code = NHDL) 109 mg/dL <130 LIPOPROTEIN LDL (test code = LDL) 73 MG/DL 0-129 N <100 [id number] 0 - 129 NEAR OPTIMAL/ABOVE [id number] - 159 [id number] - 189 HIGH>OR= 190 VERY HIGHNOTE THAT GUIDELINES ARE PROVIDED BY NATIONAL CHOLESTEROLEDUCATION PROGRAM ADULT TREATMENT PANEL III LDL/HDL (test code = LDL/HDL) 1.78 Ratio See_Comment N [Automated messa ge] The system which generated this result transmitted reference range: 1.48-3.22 Avg. The reference range was not used to interpret this result as normal/abnormal. [id number] 09:30:00* Test Item Value Reference Range Interpretation Comme nts MAGNESIUM (test code = MAG) 2.1 MG/DL 1.8-2.4 N PROTHROMBIN [id number] 09:14:00* Test Item Value Reference Range Interpretation Comme nts PT PATIENT (test code = PTP) 11.7 SECONDS 9.3-12.9 N INTERNATIONAL NORMAL RATIO (test code = INR) 1.05 INR Unit 0.8-1.2 N TARGET INR BY INDICATION Indication INR1. Prophylaxis of venous thrombosis 2.0 - 3.0 (orthopedic surgery), Prophylaxis of venous thrombosis (other than high-risk surgery), Treatment of Deep Vein Thrombosis/Pulmonary Embolism, Prevention of systemic embolism - Tissue heart valves, Acute Myocardial Infarction (to prevent systemic embolism), Valvular heart disease, Acute Myocardial Infarction (to prevent systemic embolism), Valvular heart disease, Atrial Fibrillation, Bileaflet mechanical valve in aortic position.2. Mechanical prosthetic valves (high risk), 2.5 - 3.5 Presence of Lupus Anticoagulant or Antiphospholipid Antibodies, Prevention of systemic embolism - Acute Myocardial Infarction (to prevent recurrent infarct). CBC W/AUTO [id number] 09:13:00* Test Item Value Reference Range Interpretation Comme nts WHITE BLOOD CELL (test code = WBC) 8.0 K/mm3 3.5-11.0 N RED BLOOD CELL (test code = RBC) 4.09 M/mm3 4.70-6.10 L HEMOGLOBIN (test code = HGB) 12.7 G/DL 12.3-15.9 N HEMATOCRIT (test code = HCT) 38.2 % 35.8-46.7 N MEAN CELL VOLUME (test code = MCV) 93.4 Fl 86.3-98.9 N MEAN CELL HGB (test code = MCH) 31.1 pg 28.9-34.4 N MEAN CELL HGB CONCETRATION (test code = MCHC) 33.2 G/DL 32.1-34.5 N RED CELL DISTRIBUTION WIDTH (test code = RDW) 14.3 SD 11.5-14.5 N PLATELET COUNT (test code = PLT) 239 K/mm3 150-450 N MEAN PLATELET VOLUME (test c ode = MPV) 10.30 fL 7.0-9.6 H NEUTROPHIL % (test code = NT%) 62.0 % 40-76 N IMMATURE GRANULOCYTE % (test code = IG%) 0.5 % 0.0-5.0 N LYMPHOCYTE % (test code = LY%) 24.9 % 20.5-51.1 N MONOCYTE % (test code = MO%) 8.7 % 1.7-9.3 N EOSINOPHIL % (test code = EO%) 3.3 % 0.0-6.0 N BASOPHIL % (test code = BA%) 0.6 % 0.0-2.0 N NUCLEATED RBC % (test code = NRBC%) 0.0 /100WBC% 0.0-1.0 N NEUTROPHIL # (test code = NT#) 4.9 K/mm3 1.8-7.6 N IMMATURE GRANULOCYTE # (test code = IG#) 0.04 x10 3/uL 0.00-0.03 H LYMPHOCYTE # (test code = LY#) 2.0 K/mm3 0.6-3.0 N MONOCYTE # (test code = MO#) 0.7 K/mm3 0.2-1.5 N EOSINOPHIL # (test code = EO#) 0.3 K/mm3 0.0-0.4 N BASOPHIL # (test code = BA#) 0.1 K/mm3 0.0-0.2 N NUCLEATED RBC # (test code = NRBC#) 0.0 K/mm3 0.00-0.01 N MANUAL DIFF REQUIRED (test c ode = MDIFF) NO DIFF/SCN CRITERIA Notes Date/Time Note Provider Source 2023-05-06 15:18:00 [facility] ([facility]) Hospitalist Discharge Summary REPORT#:[id number] REPORT STATUS: Signed DATE:05/06/23 TIME:1518 PATIENT: JULIA FELIZ UNIT #: [id number] ROOM/BED: [place] [address] : [birth year] AGE: 73 SEX: M ATTEND: Davina Montenegro MD ADM AUTHOR: Radames Cullen MD * ALL edits or amendments must be made on the electronic/computer document * General Information Discharge date: 05/06/23 Discharge diagnosis: Elective pacemaker Hospital course: Patient underwent elective pacemaker placement by Dr. Gant 05/05/23. Tolerated procedure without complications. Monitored overnight on telemetry. EKG and CXR post procedure unremarkable. Dr. Gant on board. History of hypertension, resume beta-angy and BP meds at discharge. Objective VS/I O Last Documented: Result Date Time Temp 36.5 05/06 1156 Resp 20 05/06 1156 Pulse Ox 92 05/06 1018 B/P 154/72 05/06 1018 B/P Mean 103 05/06 1018 Pulse 71 05/06 1018 FiO2 21 05/06 0813 O2 Delivery Room air 05/06 08 24 hour I O ending at 0700: 05/06 0700 05/05 1900 Intake Total 400 600 Output Total 1300 800 Balance -900 -200 Intake, Oral 400 600 Number Voids 5 2 Output, Urine 1300 800 Free Text Obj Notes Free Text Obj Notes: General appearance: awake, no acute distress Head/Eyes: atraumatic, normal conjunctiva/sclera, normal eyelids/periorbital area, normocephalic ENT: moist mucosal membranes Neck: supple Cardiovascular: Paced rhythm Respiratory: symmetric expansion, no accessory muscle use Abdomen: soft, non-tender, no distention, no guarding Extremities: no edema, no cyanosis Musculoskeletal: normal muscle mass Neuro/PIPE JEEPER: alert, oriented X 3, normal speech Skin: dry, intact, normal color, normal temperature, no rash Psychiatry: normal affect Discharge Instructions PCP PCP follow-up: PCP: Sherry Colindres DO Additional Discharge Routines: None at 1521 RPT #: [id number] END OF REPORT [facility] 2023-05-06 10:46:00 [id number] [facility] [id number] [place] [address] PATIENT NAME: JULIA FELIZ ADMIT DATE: 05/05/23 ACCOUNT NO: [id number] ROOM NO: [facility] AGE: 73 REPORT TYPE: eELECTROCARDIOGRAM SEX: M ADMITTING PHYSICIAN: Davina Montenegro MD ATTENDING PHYSICIAN: Davina Montenegro MD Order: [id number] Test Reason : CP Test Date/Time Stamp: [place] May 06 2023 10:46:42 Blood Pressure : / mmHG Vent. Rate : 070 BPM Atrial Rate : 070 BPM P-R Int : 000 ms QRS Dur : 166 ms QT Int : 494 ms P-R-T Axes : 000 267 075 degrees QTc Int : 533 ms Atrial fibrillation Demand pacemaker, interpretation is based on intrinsic rhythm Ventricular-paced rhythm with frequent and consecutive premature ventricular complexes Abnormal ECG Confirmed by SHU GANT ([id number]) on 05/07/2023 5:28:16 PM Referred By: Davina Montenegro Confirmed by:SHU GANT at 9207 PATIENT NAME: JULIA FELIZ [facility] 2023-05-05 22:46:00 [facility] ([facility]) Hospitalist History Physical REPORT#:[id number] REPORT STATUS: Signed DATE:05/05/23 TIME:2245 PATIENT: JULIA FELIZ UNIT #: [id number] ROOM/BED: [place] [address] : [birth year] AGE: 73 SEX: M ATTEND: Davina Montenegro MD ADM AUTHOR: Radames Cullen MD * ALL edits or amendments must be made on the electronic/computer document * History of Present Illness HPI Chief complaint: Admission for pacemaker placement HPI: Mr. Feliz is a 73-year-old man who was admitted following elective procedure for pacemaker placement by Dr. Gant. There were no complications during the procedure. He was admitted for observation. Patient feels well postprocedure and is tolerating oral intake. He has a history of sick sinus syndrome, chronic A-fib, NSVT for which he requires beta-angy therapy but complicated by bradycardia for which the pacemaker was indicated. Patient has no complaints at this time. Hx Obtained From Patient, Spouse, Prior medical records History Date last smoked: 09/24/14 Medication/Allergy-Vaccine Hx Allergies: Coded Allergies: No Known Allergies (05/02/23) Review of Systems Free Text ROS Notes Free Text ROS Notes: Review of systems negative except per HPI. Objective General VS/I O: Vital Signs: Date Time Temp Pulse Resp B/P B/P Pulse O2 O2 Flow FiO2 Mean Ox Delivery Rate 05/06 0813 95 Room air 21 05/06 0743 36.4 21 05/06 0700 63 25 173/77 110 95 05/06 0504 64 14 143/74 102 94 05/06 0401 36.6 05/06 0400 67 17 162/99 123 94 05/06 0300 61 16 144/70 100 94 05/06 0201 59 15 155/78 110 94 05/06 0112 60 23 152/77 108 93 05/06 0001 62 14 151/103 123 93 08 2352 94 Room air 21 05/05 2337 36.8 05/05 2301 65 23 168/82 116 94 05/05 2201 60 21 180/81 117 92 05/05 2100 61 19 171/81 117 94 08/ 2000 60 19 159/74 107 95 08/12 1916 36.9 08/12 1846 62 08/12 1801 60 16 137/69 94 95 08/12 1700 61 20 151/74 106 97 08/12 1636 36.5 19 08/12 1630 60 16 152/80 107 95 08/12 1600 60 16 144/77 105 95 08/12 1545 60 20 142/69 101 97 08/12 1530 60 16 155/84 114 95 08/12 1515 60 18 148/81 108 96 08/12 1500 60 21 148/84 109 97 08/12 1445 60 24 138/71 97 94 08/12 1430 60 20 152/77 105 96 08/12 1300 36.4 63 18 139/77 100 Room air 08/12 1230 64 17 140/70 92 Room air 08/ 1130 61 18 142/79 93 Room air 08/ 1100 60 14 138/73 100 Room air / 1045 36.2 60 18 154/77 92 Room air / 0846 36.6 58 15 171/86 98 Room air 24 hour I O ending at 0700: 13 0700 08/ 1900 Intake Total 400 600 Output Total 1300 800 Balance -900 -200 Intake, Oral 400 600 Number Voids 5 2 Output, Urine 1300 800 PATIENT WEIGHT: Weight (lb): 225 Weight (oz): 7.57 Weight (kg): 102.273 Free Text Obj Notes Free Text Obj Notes: General appearance: awake, no acute distress Head/Eyes: atraumatic, normal conjunctiva/sclera, normal eyelids/periorbital area, normocephalic ENT: moist mucosal membranes Neck: supple Cardiovascular: Paced rhythm Respiratory: symmetric expansion, no accessory muscle use Abdomen: soft, non-tender, no distention, no guarding Extremities: no edema, no cyanosis Musculoskeletal: normal muscle mass Neuro/PIPE JEEPER: alert, oriented X 3, normal speech Skin: dry, intact, normal color, normal temperature, no rash Psychiatry: normal affect Diagnosis, Assessment Plan Code Status/Resusc. Discussion Code status: full code Free Text DxA P Notes Free Text DxA P Notes: 1. Elective pacemaker placement by Dr. Gant 05/05/23 Tolerated procedure without complications Monitor overnight on telemetry EKG and CXR in a.m. Cardiology on board 2. History of hypertension Resume beta-angy and BP meds at discharge at 0847 RPT #: [id number] END OF REPORT [facility] 2023-05-05 11:03:00 [id number] [address] PATIENT NAME: JULIA FELIZ ADMIT DATE: 05/05/23 ACCOUNT NO: [id number] ROOM NO: [facility] AGE: 73 REPORT TYPE: eELECTROCARDIOGRAM SEX: M ADMITTING PHYSICIAN: Davina Montenegro MD ATTENDING PHYSICIAN: Davina Montenegro MD Order: [id number] Test Reason : Post insertion procedure Test Date/Time Stamp: [facility] May 05 2023 11:03:53 Blood Pressure : / mmHG Vent. Rate : 060 BPM Atrial Rate : 000 BPM P-R Int : 000 ms QRS Dur : 170 ms QT Int : 510 ms P-R-T Axes : 000 269 068 degrees QTc Int : 510 ms Poor data quality, interpretation may be adversely affected Atrial fibrillation with a demand pacemaker Nonspecific intraventricular block Abnormal ECG When compared with ECG of 05-MAY-2023 11:02, No significant change was found Confirmed by SHU GANT ([id number]) on 05/05/2023 12:06:23 PM Referred By: Shu Gant Confirmed by:SHU GANT at 1206 PATIENT NAME: JULIA FELIZ [facility] 2023-05-05 11:02:[address] [address] PATIENT NAME: JULIA FELIZ ADMIT DATE: 05/05/23 ACCOUNT NO: [id number] ROOM NO: [facility] AGE: 73 REPORT TYPE: eELECTROCARDIOGRAM SEX: M ADMITTING PHYSICIAN: Davina Montenegro MD ATTENDING PHYSICIAN: Davina Montenegro MD Order: [id number] Test Reason : Post insertion procedure Test Date/Time Stamp: [facility] May 05 2023 11:02:14 Blood Pressure : / mmHG Vent. Rate : 060 BPM Atrial Rate : 000 BPM P-R Int : 000 ms QRS Dur : 172 ms QT Int : 510 ms P-R-T Axes : 000 268 070 degrees QTc Int : 510 ms Poor data quality, interpretation may be adversely affected Atrial fibrillation with a demand pacemaker Nonspecific intraventricular block Biventricular hypertrophy Abnormal ECG When compared with ECG of 05-MAY-2023 08:48, Ventricular-paced rhythm has replaced Atrial fibrillation Confirmed by SHU GANT ([id number]) on 05/05/2023 12:05:10 PM Referred By: Shu Gant Confirmed by:SHU GANT at 1205 PATIENT NAME: JULIA FELIZ [facility] 2023-05-05 10:26:00 [id number] [facility] [address] [place] [address] PATIENT NAME: JULIA FELIZ ADMIT DATE: 05/05/23 ACCOUNT NO: [id number] ROOM NO: [facility] AGE: 73 REPORT TYPE: CARDIAC CATHETERIZATION REPORT SEX: M ADMITTING PHYSICIAN: Davina Montenegro MD ATTENDING PHYSICIAN: Davina Montenegro MD PROCEDURE DATE: INDICATION FOR THE PROCEDURE: Symptomatic sick sinus syndrome with bradycardia pauses in the patient with chronic atrial fibrillation, coronary artery disease and episodes of nonsustained ventricular tachycardia. TITLE OF PROCEDURE: Single chamber MRI compatible permanent pacemaker implantation. ESTIMATED BLOOD LOSS: Minimal. COMPLICATIONS: None. CONTRAST: None. ANESTHESIA: Conscious sedation with Versed and fentanyl, 1% lidocaine for local anesthesia. FINAL DIAGNOSES: Successful single chamber permanent pacemaker implantation that is MRI compatible. PLAN AND DISPOSITION: Observation overnight. PROCEDURE IN DETAIL: Please see enclosed report in the chart. Dictated By: Shu Gant MD Date Dictated: 05/05/2023 10:26:22 Date Transcribed: 05/05/2023 12:07:05 IVAN/CLAUDIA Receipt ID: [id number] Authenticated by Shu Gant MD On 05/05/2023 12:11:53 PM at 1211 PATIENT NAME: JULIA FELIZ [facility] 2023-05-05 10:24:00 [id number] [address] PATIENT NAME: JULIA FELIZ ADMIT DATE: 05/05/23 ACCOUNT NO: [id number] ROOM NO: [facility] AGE: 73 REPORT TYPE: OPERATIVE REPORT SEX: M ADMITTING PHYSICIAN: Davina Montenegro MD ATTENDING PHYSICIAN: Davina Montenegro MD OPERATION DATE: 05/05/2023 MILITARY SCIENCE INSTRUCTOR: Shu Gant MD. INDICATION FOR THE PROCEDURE: Symptomatic sick sinus syndrome with bradycardia, history of coronary artery disease and nonsustained ventricular tachycardia, long pauses. TITLE OF PROCEDURE: Single chamber MRI compatible with single permanent pacemaker implantation. ESTIMATED BLOOD LOSS: Minimal. COMPLICATIONS: None. CONTRAST: None. ANESTHESIA: Conscious sedation with Versed and fentanyl. 1% lidocaine for local anesthesia. FINAL DIAGNOSES: Successful MRI compatible single chamber permanent pacemaker implantation. DISPOSITION: Observation overnight. DESCRIPTION OF PROCEDURE: Please see report in the chart. Dictated By: Shu Gant MD Date Dictated: 05/05/2023 10:24:20 Date Transcribed: 05/05/2023 11:52:59 IVAN/MAUREEN Receipt ID: [id number] Authenticated by Shu Gant MD On 05/05/2023 12:09:10 PM at 1209 PATIENT NAME: JULIA FELIZ [facility] 2023-05-05 08:48:00 [id number] [address] PATIENT NAME: JULIA FELIZ ADMIT DATE: 05/05/23 ACCOUNT NO: [id number] ROOM NO: AGE: 73 REPORT TYPE: eELECTROCARDIOGRAM SEX: M ADMITTING PHYSICIAN: ATTENDING PHYSICIAN: Shu Gant MD Order: [id number] Test Reason : CAD Test Date/Time Stamp: SunMay 05 2023 08:48:30 Blood Pressure : / mmHG Vent. Rate : 055 BPM Atrial Rate : 000 BPM P-R Int : 000 ms QRS Dur : 100 ms QT Int : 454 ms P-R-T Axes : 000 -14 061 degrees QTc Int : 434 ms Atrial fibrillation with slow ventricular response with premature ventricular or aberrantly conducted complexes Abnormal ECG No previous ECGs available Confirmed by SHU GANT ([id number]) on 05/05/2023 9:33:46 AM Referred By: Shu Gant Confirmed by:SHU GANT at 0933 PATIENT NAME: JULIA FELIZ [facility] 2023-05-04 07:58:00 [id number] [place] [address] PATIENT NAME: JULIA FELIZ ADMIT DATE: ACCOUNT NO: [id number] ROOM NO: AGE: 73 REPORT TYPE: HISTORY AND PHYSICAL SEX: M ADMITTING PHYSICIAN: ATTENDING PHYSICIAN: Shu Gant MD Cardiology PATIENT NAME: JULIA FELIZ ADMIT DATE:05/05/2023 ADMISSION DATE: 05/05/2023 11:00:00 MILITARY SCIENCE INSTRUCTOR: Shu Gant MD. HISTORY OF PRESENT ILLNESS: The patient is a 73-year-old patient who I have been seeing in my office since at least 2009. The patient has a long history of paroxysmal atrial fibrillation that has lately been chronic and a history of valvular heart disease and sick-sinus syndrome. The patient has known coronary artery disease, also on previous bypass. Lately, he has been having worsening sick sinus syndrome that is symptomatic with heart rates going down to 19 and long episodes as long as 4.2. He was taken off the very low dose metoprolol and his pauses continued with heart rates going down to 33 and the pauses are up to 2.9. He has also had short runs of ventricular tachycardia that got worse of beta angy therapy. So the patient needs a single chamber permanent pacemaker implantation and then he will need to be restarted on beta angy therapy for his ventricular tachycardia. The patient was evaluated recently and needed clearance for gastrointestinal procedures. So the patient was denied clearance, so he gets the pacemaker first and gets his tachycardia treated, so he is here for single chamber permanent pacemaker implantation. The patient's summary of previous cardiac history; he had a triple bypass in April of 2019, had a stroke in January of 2007. The patient's last carotid Doppler was this year in September showing less than 35% disease. He has been in atrial fibrillation for several years now as mentioned above. His last echocardiogram from September showed mild mitral regurgitation, mild aortic stenosis, ejection fraction 55-60%, hypertensive changes. Last nuclear stress test was negative for ischemia before the bypass. It showed scarring. His last stress test from 2015 showed mixed ischemia and scarring, ejection fraction of 50%, that was before his bypass. He had a cardiac catheterization on May 06, 2016, that showed 3-vessel coronary artery disease. Holter monitoring was described above and summary of the last 3 are enclosed. The patient does not have any significant angina at this time. He has palpitations, dizziness and dyspnea. No syncope. There is no history of congestive heart failure or any further TIAs or strokes. PAST MEDICAL HISTORY: Remarkable for the above, in addition to hypertension, hyperlipidemia, stroke as mentioned above, diabetes, depression, acid reflux, gout, diverticulosis, osteoarthritis, sciatica, kidney stones and recent urinary tract infections, cataracts, sleep apnea, using CPAP and allergies. PATIENT NAME: JULIA FELIZ PAST SURGICAL HISTORY: The above-mentioned cardiac procedures and triple bypass in 2018. ALLERGIES: NO KNOWN DRUG ALLERGIES. MEDICATIONS: Reviewed and listed. He has been off beta angy therapy. He is on Eliquis 2.5 mg b.i.d., is now on hold, atorvastatin 40 mg daily, aspirin 81 mg daily, amiloride 5 mg daily, sometimes takes it every other day. Amlodipine 5 mg daily. He takes vitamins. Doxazosin 05:29 2 mg daily, metformin is on hold, trazodone 100 mg as needed, vitamin D3, Carafate, ramipril 2.5 mg daily. SOCIAL HISTORY: There is no history of any recent smoking. There is no history of alcohol or street drug use. FAMILY HISTORY: Positive for atherosclerotic cardiovascular disease, but not at the younger age. REVIEW OF SYSTEMS: Remarkable for the above detail in the chart with decreased hearing, fatigue, allergies, dry mouth, snoring for which he uses CPAP, diverticulosis, bladder infection, depression. No acute GI or symptoms. No recent TIAs or strokes. PHYSICAL EXAMINATION: GENERAL: Reveals a pleasant elderly male in no acute distress. VITAL SIGNS: Blood pressure 136/92, pulse 60 and irregular, respiratory rate 18 and unlabored, temperature afebrile. HEENT: Head atraumatic, normocephalic. EYES AND ENT: Examination within normal for age. NECK: Supple. No jugular venous distention, bruits or lymphadenopathy. Normal upstroke. LUNGS: Clear and resonant. HEART: Irregular rate and rhythm with II/ systolic murmur at the mitral area. No gallops. The heart is enlarged and bradycardic with PVCs. ABDOMEN: Soft, no tenderness, no organomegaly, no masses or bruits. EXTREMITIES: 2+ distal pulses. No edema, cyanosis or clubbing. NEUROLOGIC: Alert and oriented x3. Examination appears to be nonfocal. LABORATORY DATA: Pending. Noninvasive cardiovascular workup enclosed. IMPRESSION: This is a 73-year-old patient with extensive cardiac history detailed above. His main issues are now progressive sick sinus syndrome with prolonged pauses, had to be taken off beta angy therapy and he has nonsustained ventricular tachycardia with normal ejection fraction, so the patient has a combination of chronic atrial fibrillation, nonsustained ventricular tachycardia that is in need beta angy therapy and sick sinus syndrome with prolonged pauses. So, the patient is here for a single chamber permanent pacemaker implantation to be followed by medical therapy for his tachycardia. He is not a candidate for defibrillator since his ejection fraction has been normal. The tachycardia has not been sustained or symptomatic. PLAN: The recommendation is to proceed with the above-mentioned procedure. The risks and benefits of the planned procedures were discussed in detail with the patient and available family members and he is willing to proceed. Rest as per PATIENT NAME: JULIA FELIZ orders. The patient is right handed, so we will proceed from the left side. Dictated By: Shu Gant MD Date Dictated: 05/04/2023 07:58:44 Date Transcribed: 05/04/2023 11:31:10 IVAN/MAUREEN Receipt ID: [id number] Authenticated and Edited by Shu Gant MD On 05/04/23 5:37:04 PM at 0539 PATIENT NAME: JULIA FELIZ [facility]
[2024-06-16 23:48] VITALS: BMI 29.6
[2024-06-17] MEDS ORDERED: ONDANSETRON 4 MG/2 ML VIAL IV PRN (00:27)
[2024-06-17] MEDS ORDERED: ACETAMINOPHEN 325 MG TABLET PO PRN (00:27)
[2024-06-17] MEDS ORDERED: MORPHINE 2 MG/ML SYR IV PRN (00:32)
[2024-06-17] MEDS ORDERED: HYDROCODONE/APAP 5/325 MG TAB PO PRN (00:32)
--- NOTE | 2024-06-17 00:48 | P.HP ---
Certification for Inpatient Patient admitted to: Inpatient With expected LOS: >2 Midnights Practitioner: I am a practitioner with admitting privileges, knowledge of patient current condition, hospital course, and medical plan of care. Services: Services provided to patient in accordance with Admission requirements found in Title 42 Section 412.3 of the Code of Federal Regulations Patient History Date of Service: 06/17/24 Reason for admission: Hyperkalemia, acute kidney injury History of Present Illness: 74-year-old male with a past medical history of hypertension, hyperlipidemia,, diabetes, chronic back pain and wound infection on the upper back transferred from [facility] and was found to have hyperkalemia and acute kidney injury . Patient was admitted for possible debridement and treatment by Dr. Soto as the patient had Wound in the upper back . The workup in [facility] found to be having hyperkalemia and acute kidney injury and was sent over here for further management . Patient denies any chest pain or shortness of breath. No fever or chills. Denies any nausea vomiting or diarrhea.. Allergies No Known Drug Allergies Allergy (Verified 06/16/24 14:30) Unknown Home medications list reviewed: Yes Home Medications: Acetaminophen [8Hr Arthritis Pain Relief] 650 mg PO TIDP PRN 03/29/23 Acetaminophen with Codeine [Acetaminophen-Cod #3 Tablet] 1 each PO BIDP PRN 03/29/23 Allopurinol 300 mg PO DAILY 03/29/23 Amiloride HCl [Midamor] 5 mg PO SEECOM 03/29/23 Apixaban [Eliquis] 2.5 mg PO BID 03/29/23 Aspirin [Low Dose Aspirin EC] 81 mg PO DAILY 03/29/23 Atorvastatin Calcium [Lipitor] 40 mg PO BEDTIME 03/29/23 Cholecalciferol (Vitamin D3) [Vitamin D3] 25 mcg PO DAILY 03/29/23 Cider Vinegar [Apple Cider Vinegar] 1 tab PO BID 03/29/23 Docusate Sodium [Stool Softener] 250 mg PO BEDTIME 03/29/23 Doxazosin [Cardura] 2 mg PO BID 03/29/23 Dulaglutide [Trulicity] 1.5 mg SQ EVERY 7TH DAY 03/29/23 Ferrous Sulfate [Feosol] 325 mg PO BIDWM 03/29/23 Fluticasone [Flonase 50mcg Nasal [place]] 1 spray NS DAILY 03/29/23 Furosemide [Lasix] 20 mg PO DAILY 03/29/23 Isosorbide Mononitrate [Isosorbide Mononitrate ER] 30 mg PO DAILY 03/29/23 Metformin ER [Glucophage ER] 500 mg PO DAILY 03/29/23 Multivitamin with Minerals [Multivitamins with Minerals] 1 each PO DAILY 03/29/23 Psyllium Husk [Daily Fiber] 0.4 gm PO BID 03/29/23 Ramipril 2.5 mg PO BEDTIME 03/29/23 Trazodone HCl 100 mg PO BEDTIME 03/29/23 glipiZIDE [Glipizide] 5 mg PO BID 03/29/23 Cinnamon Bark/Chromium Picolin [Cinnamon Plus Chromium Capsule] 1 each PO BID 06/16/24 Escitalopram Oxalate [Lexapro] 5 mg PO DAILY 06/16/24 Linagliptin [Tradjenta] 5 mg PO BEDTIME 06/16/24 Magnesium Oxide [Magnesium] 400 mg PO BID 06/16/24 Melatonin 10 mg PO BEDTIME PRN PRN 06/16/24 Metoprolol Tartrate [Lopressor] 50 mg PO BID 06/16/24 [place]-3 Fatty Acids [[place]-3] 1 cap PO BID 06/16/24 Omeprazole [Prilosec] 40 mg PO NOON 06/16/24 - Past Medical/Surgical History Has patient received pneumonia vaccine in the past: Yes Diabetic: Yes Past Medical History: Reviewed- Non-Contributory -: CHF -: HTN -: Hypercholesterol -: kidney stones -: Kidney dx -: GERD -: Stroke 2006 -: sleep apnea Past Surgical History: Reviewed- Non-Contributory -: triple bypass -: precancerous mole removal from back. -: pacemaker - Family History Family History: Reviewed- Non-Contributory - Family History Mother -: Hypertension, Other (see notes) Notes: from brain tumors - Social History Smoking Status: Former smoker Alcohol use: No CD- Drugs: No Caffeine use: Yes Place of Residence: Home Review of Systems 10-point ROS is otherwise unremarkable Physical Examination - Vital Signs Temperature: 97.7 F Blood Pressure: 158/76 Pulse: 62 Respirations: 18 Pulse Ox (%): 100 - Physical Exam General: Alert, In no apparent distress, Oriented x3 HEENT: Atraumatic, Normocephalic Neck: Supple, No Thyromegaly Respiratory: Clear to auscultation bilaterally, Normal air movement Cardiovascular: Regular rate/rhythm, Normal S1 S2 Capillary refill: <2 Seconds Gastrointestinal: Soft and benign, W/out hepatosplenomegaly Musculoskeletal: No clubbing, No swelling Integumentary: No rashes, No breakdown Neurological: Normal speech, Normal strength at 5/5 x4 extr, Cranial nerves 3-12 intact Lymphatics: No axilla or inguinal lymphadenopathy Assessment and Plan - Plan Hyperkalemia Acute kidney injury Will get CBC BMP IV hydration Nephrology consulted Cellulitis and wound on upper back Will get a wound culture Started on IV antibiotic Consult Dr. Soto Hypertension Antihypertensives titrated Continue home medications and titrate as needed Hyperlipidemia Continue statin CHF not in exacerbation Monitor under telemetry Continue home medications and titrate as needed GI/DVT prophylaxis Advanced directive full code Discharge Plan: Home Plan to discharge in: 48 Hours - Advance Directives Does patient have a Living Will: No Does patient have a Durable POA for Healthcare: No - Code Status/Comfort Care Code Status: Full Code Time Spent Managing Pts Care (In Minutes): 48
[2024-06-17] MEDS: VANCOMYCIN 1 GM in NA CHLORIDE 0.9% 250 ML IVPB SCH (01:00)
[2024-06-17] MEDS: CEFTRIAXONE 1,000 MG in NA CHLORIDE 0.9% 50 ML IVPB SCH (01:40)
[2024-06-17] MEDS: NA CHLORIDE 0.9% 1,000 ML IV SCH (01:40)
[2024-06-17] MEDS: VANCOMYCIN 1 GM/VIAL ONE (01:49)
[2024-06-17] MEDS: NA CHLORIDE 0.9% 500 ML ONE (01:50)
[2024-06-17] MEDS: VANCOMYCIN 1.75 GM in NA CHLORIDE 0.9% 500 ML IVPB ONE (02:02)
[2024-06-17] MEDS: HEPARIN 5000 UNIT/ML 1 ML VIAL SQ SCH (02:03)
[2024-06-17 02:32] LABS: Specific Gravity 1.017 (1.005-1.030); Urine Bilirubin NEGATIVE (Negative); Urine Blood Negative (Negative); Urine Clarity Clear (Clear); Urine Color Light-Yellow (Yellow); Urine Glucose NEGATIVE (Negative); Urine Ketones NEGATIVE (Negative); Urine Microscopic Reflex YN NO UMIC; Urine Nitrite NEGATIVE (Negative); Urine Protein NEGATIVE (Negative); Urine Urobilinogen Normal (Normal); Urine pH 5.5 (5.0-7.0)
[2024-06-17 04:40] LABS: Absolute Eosinophils 0.1 K/uL (0-0.5); Absolute Lymphocytes (CBC) 1.8 K/uL (0.7-4.9); Absolute Monocytes 0.4 K/uL (0.1-1.3); Absolute Neutrophil 3.3 K/uL (1.8-8.0); Basophils % 0.2 % (0-1.3); Eosinophils % 2.4 % (0-4.4); Hematocrit 30.6 % (39.6-49.0); Hemoglobin 10.4 g/dL (13.6-17.9); Lymphocytes % 31.6 % (15.3-44.8); MCV 100.2 fL (80-100); MPV 7.8 fL (7.6-11.3); Monocytes % 7.6 % (3.3-12.3); Neutrophils % 58.2 % (41.7-73.7); Platelets 178 thou/uL (152-406); RBC Red Blood Cell Count 3.05 M/uL (4.33-5.43); Red Cell Distribution Width 13.6 % (12.1-15.2)
[2024-06-17 04:57] LABS: Albumin 3.6 g/dL (3.4-5.0); Albumin/Globulin Ratio 1.2 (1.1-1.8); Anion Gap 10.5 mEq/L (5.0-15.0); Bilirubin Total 0.3 mg/dL (0.2-1.0); Globulin 3.1 g/dL (2.3-3.5); Magnesium 2.4 mg/dL (1.6-2.4); Phosphorus 4.9 mg/dL (2.5-4.9); Potassium 5.5 mEq/L (3.5-5.1); Protein, Total 6.7 g/dL (6.4-8.2)
[2024-06-17] MEDS: SODIUM ZIRCONIUM CYCLOSILICATE 10 GM/PKT PO ONE (07:07)
--- NOTE | 2024-06-17 07:53 | P.CNS ---
Date of Consult: 06/17/24 Reason for Consult: DAVIN/CKD Requesting Physician: Aurelio Hampton Chief Complaint: Hyperkalemia, acute kidney injury History of Present Illness: 74-year-old male with a past medical history of hypertension, hyperlipidemia,, diabetes, chronic back pain and wound infection on the upper back transferred from [facility] and was found to have hyperkalemia and acute kidney injury . Patient was admitted for possible debridement and treatment by Dr. Soto as the patient had Wound in the upper back . The workup in [facility] found to be having hyperkalemia and acute kidney injury and was sent over here for further management . Patient denies any chest pain or shortness of breath. No fever or chills. Denies any nausea vomiting or diarrhea. The patient did receive 14 days of Bactrim for his back wound. Allergies No Known Drug Allergies Allergy (Verified 06/16/24 14:30) Unknown Home medications list reviewed: Yes Home Medications: Acetaminophen [8Hr Arthritis Pain Relief] 650 mg PO TIDP PRN 03/29/23 Acetaminophen with Codeine [Acetaminophen-Cod #3 Tablet] 1 each PO BIDP PRN 03/29/23 Allopurinol 300 mg PO DAILY 03/29/23 Amiloride HCl [Midamor] 5 mg PO SEECOM 03/29/23 Apixaban [Eliquis] 2.5 mg PO BID 03/29/23 Aspirin [Low Dose Aspirin EC] 81 mg PO DAILY 03/29/23 Atorvastatin Calcium [Lipitor] 40 mg PO BEDTIME 03/29/23 Cholecalciferol (Vitamin D3) [Vitamin D3] 25 mcg PO DAILY 03/29/23 Cider Vinegar [Apple Cider Vinegar] 1 tab PO BID 03/29/23 Docusate Sodium [Stool Softener] 250 mg PO BEDTIME 03/29/23 Doxazosin [Cardura] 2 mg PO DAILY 03/29/23 Dulaglutide [Trulicity] 1.5 mg SQ EVERY 7TH DAY 03/29/23 Ferrous Sulfate [Feosol] 325 mg PO BIDWM 03/29/23 Fluticasone [Flonase 50mcg Nasal [place]] 1 spray NS DAILY 03/29/23 Furosemide [Lasix] 20 mg PO DAILY 03/29/23 Isosorbide Mononitrate [Isosorbide Mononitrate ER] 30 mg PO DAILY 03/29/23 Metformin ER [Glucophage ER] 500 mg PO DAILY 03/29/23 Multivitamin with Minerals [Multivitamins with Minerals] 1 each PO DAILY 03/29/23 Ramipril 10 mg PO DAILY 03/29/23 Trazodone HCl 50 mg PO BEDTIME 03/29/23 Cinnamon Bark/Chromium Picolin [Cinnamon Plus Chromium Capsule] 1 each PO BID 06/16/24 Escitalopram Oxalate [Lexapro] 5 mg PO DAILY 06/16/24 Linagliptin [Tradjenta] 5 mg PO BEDTIME 06/16/24 Magnesium Oxide [Magnesium] 400 mg PO BID 06/16/24 Melatonin 10 mg PO BEDTIME PRN PRN 06/16/24 Metoprolol Tartrate [Lopressor] 50 mg PO BID 06/16/24 [place]-3 Fatty Acids [[place]-3] 1 cap PO BID 06/16/24 Omeprazole [Prilosec] 40 mg PO NOON 06/16/24 Mupirocin Oint [Bactroban 2% Ointment*] 1 espinoza TOP DAILY 06/17/24 Nystatin 1 espinoaz TOP BIDP PRN 06/17/24 - Past Medical/Surgical History Diabetic: Yes -: Diastolic CHF -: HTN -: HLD -: CKD III (Dr. Hernandez/ [place]) -: Nephrolithiasis -: GERD -: Stroke 2006 -: OZ -: triple bypass -: precancerous mole removal from back. -: pacemaker - Family History Mother Medical History: Hypertension, Other (see notes) Notes: from brain tumors - Social History Smoking Status: Current every day smoker Alcohol use: No CD- Drugs: No Caffeine use: Yes Place of Residence: Home Review of Systems 10-point ROS is otherwise unremarkable General: Weakness Physical Examination Temp Pulse Resp BP Pulse Ox 97.7 F 64 18 133/65 99 06/17/24 04:00 06/17/24 04:00 06/17/24 04:00 06/17/24 04:00 06/17/24 04:00 General: In no apparent distress, Oriented x3, Cooperative HEENT: Atraumatic Neck: Supple Respiratory: Clear to auscultation bilaterally, Normal air movement Cardiovascular: No edema, Regular rate/rhythm Gastrointestinal: Soft and benign, Non-distended Musculoskeletal: No clubbing, No contractures Integumentary: No rashes, No cyanosis Neurological: Normal speech Laboratory Data (last 24 hrs) 06/17/24 06/17/24 04:14 04:14 WBC 5.60 Hgb 10.4 L Hct 30.6 L Plt Count 178 Sodium 138 Potassium 5.5 H D BUN 45 H Creatinine 2.88 H Glucose 116 H Phosphorus 4.9 Magnesium 2.4 Total Bilirubin 0.3 AST 18 ALT 27 Alkaline Phosphatase 71 Imagings Data: CXR 06-16-24 COMPARISON: No prior exam. FINDINGS: The lungs are well inflated and clear. The heart is normal in size. No displaced fractures evident. Single-lead pacer device. Sternotomy wires. IMPRESSION: No acute or significant abnormalities. Conclusions/Impression: Stage II DAVIN in the setting of Bactrim CKD III with Proteinuria -No NSAIDs -Continue IVF -Hold Bactrim Hyperkalemia -Lokelma as ordered -Hold Bactrim -Renal Diet HTN with CKD/ CHF -Restart home antihypertensives as indicated Diastolic CHF, chronic -Daily weight DM II with Polyneuropathy & CKD -RISS prn Anemia in chronic illness -Monitor H&H Epidermal Cyst/ Back Abscess -Continue Vancomycin; monitor level -Follow up with surgery Case reviewed with the ER provider and Dr. Hampton Thank you kindly for the consultation
--- NOTE | 2024-06-17 10:07 | P.PN ---
Date of Service: 06/17/24 Pt seen and examined. Pt is a 74 yo male with past medical history of hypertension, hyperlipidemia,, diabetes, chronic back pain, and wound infection on the upper back who transferred from [facility] for further evaluation of hyperkalemia and acute kidney injury A/P: Hyperkalemia: K is 5.5. Due to recent exposure to bactrim. Will give IVF and f/u IVF. Acute kidney injury: Cr is 2.88. Due to recent exposure to Bactrim. Will continue IVF, avoid nephrotoxins, and monitor renal function. Cellulitis and wound on upper back: Will get a wound culture. Continue iv abx. Consulted Dr. Soto. Hypertension: Will continue home meds Hyperlipidemia: Continue statin CHF not in exacerbation: Stable. Will monitor BP and volume status. GI ppx: protonix DVT ppx: SCD Code: full code
[2024-06-18 06:30] LABS: Absolute Eosinophils 0.1 K/uL (0-0.5); Absolute Lymphocytes (CBC) 1.4 K/uL (0.7-4.9); Absolute Monocytes 0.5 K/uL (0.1-1.3); Absolute Neutrophil 2.9 K/uL (1.8-8.0); Basophils % 0.7 % (0-1.3); Eosinophils % 2.7 % (0-4.4); Hematocrit 33.3 % (39.6-49.0); Hemoglobin 10.9 g/dL (13.6-17.9); Lymphocytes % 28.2 % (15.3-44.8); MCH 32.6 pg (27.0-35.0); MCHC 32.6 g/dL (32.0-36.0); MCV 100.2 fL (80-100); MPV 7.7 fL (7.6-11.3); Monocytes % 9.6 % (3.3-12.3); Neutrophils % 58.8 % (41.7-73.7); Platelets 156 thou/uL (152-406); RBC Red Blood Cell Count 3.33 M/uL (4.33-5.43); Red Cell Distribution Width 13.6 % (12.1-15.2)
[2024-06-18 07:02] LABS: Albumin/Globulin Ratio 0.9 (1.1-1.8); Anion Gap 9.6 mEq/L (5.0-15.0); Bilirubin Total 0.3 mg/dL (0.2-1.0); Globulin 3.3 g/dL (2.3-3.5); Protein, Total 6.3 g/dL (6.4-8.2)
[2024-06-18 07:03] LABS: Magnesium 2.2 mg/dL (1.6-2.4); Potassium 5.6 mEq/L (3.5-5.1)
[2024-06-18] MEDS: SODIUM ZIRCONIUM CYCLOSILICATE 10 GM/PKT PO ONE ×3 (08:00→22:59)
--- NOTE | 2024-06-18 09:28 | P.CNS ---
Date of Consult: 06/17/24 Reason for Consult: infected back subQ mass Chief Complaint: Hyperkalemia, acute kidney injury History of Present Illness: 74 y/o with chronoc kidney disease admitted with exacerbation of kidney disease and hyperkalemia. Pt also has infected back sub mass with purulent drainage to be treated too. Allergies No Known Drug Allergies Allergy (Verified 06/16/24 14:30) Unknown Home Medications: Acetaminophen [8Hr Arthritis Pain Relief] 650 mg PO TIDP PRN 03/29/23 Acetaminophen with Codeine [Acetaminophen-Cod #3 Tablet] 1 each PO BIDP PRN 03/29/23 Allopurinol 300 mg PO DAILY 03/29/23 Amiloride HCl [Midamor] 5 mg PO SEECOM 03/29/23 Apixaban [Eliquis] 2.5 mg PO BID 03/29/23 Aspirin [Low Dose Aspirin EC] 81 mg PO DAILY 03/29/23 Atorvastatin Calcium [Lipitor] 40 mg PO BEDTIME 03/29/23 Cholecalciferol (Vitamin D3) [Vitamin D3] 25 mcg PO DAILY 03/29/23 Cider Vinegar [Apple Cider Vinegar] 1 tab PO BID 03/29/23 Docusate Sodium [Stool Softener] 250 mg PO BEDTIME 03/29/23 Doxazosin [Cardura] 2 mg PO DAILY 03/29/23 Dulaglutide [Trulicity] 1.5 mg SQ EVERY 7TH DAY 03/29/23 Ferrous Sulfate [Feosol] 325 mg PO BIDWM 03/29/23 Fluticasone [Flonase 50mcg Nasal [place]] 1 spray NS DAILY 03/29/23 Furosemide [Lasix] 20 mg PO DAILY 03/29/23 Isosorbide Mononitrate [Isosorbide Mononitrate ER] 30 mg PO DAILY 03/29/23 Metformin ER [Glucophage ER] 500 mg PO DAILY 03/29/23 Multivitamin with Minerals [Multivitamins with Minerals] 1 each PO DAILY 03/29/23 Ramipril 10 mg PO DAILY 03/29/23 Trazodone HCl 50 mg PO BEDTIME 03/29/23 Cinnamon Bark/Chromium Picolin [Cinnamon Plus Chromium Capsule] 1 each PO BID 06/16/24 Escitalopram Oxalate [Lexapro] 5 mg PO DAILY 06/16/24 Linagliptin [Tradjenta] 5 mg PO BEDTIME 06/16/24 Magnesium Oxide [Magnesium] 400 mg PO BID 06/16/24 Melatonin 10 mg PO BEDTIME PRN PRN 06/16/24 Metoprolol Tartrate [Lopressor] 50 mg PO BID 06/16/24 [place]-3 Fatty Acids [[place]-3] 1 cap PO BID 06/16/24 Omeprazole [Prilosec] 40 mg PO NOON 06/16/24 Mupirocin Oint [Bactroban 2% Ointment*] 1 espinoza TOP DAILY 06/17/24 Nystatin 1 espinoza TOP BIDP PRN 06/17/24 - Past Medical/Surgical History Diabetic: Yes -: Diastolic CHF -: HTN -: HLD -: CKD III (Dr. Hernandez/ [place]) -: Nephrolithiasis -: GERD -: Stroke 2006 -: OZ -: triple bypass -: precancerous mole removal from back. -: pacemaker - Family History Mother Medical History: Hypertension, Other (see notes) Notes: from brain tumors - Social History Smoking Status: Current every day smoker Alcohol use: No CD- Drugs: No Caffeine use: Yes Place of Residence: Home Review of Systems Respiratory: Unremarkable Cardiovascular: Unremarkable Gastrointestinal: Unremarkable Integumentary: As per HPI Physical Examination Temp Pulse Resp BP Pulse Ox 97 F 68 18 177/97 H 100 06/18/24 08:15 06/18/24 08:15 06/18/24 08:15 06/18/24 08:15 06/18/24 08:15 General: Alert, In no apparent distress, Oriented x3 HEENT: Normocephalic, PERRLA Neck: Supple Respiratory: Clear to auscultation bilaterally Gastrointestinal: Soft and benign Integumentary: Tenderness/swelling, Erythema, Warmth, Other (infected back subQ mass) Laboratory Data (last 24 hrs) 06/18/24 06/18/24 06:19 06:19 WBC 5.00 Hgb 10.9 L Hct 33.3 L Plt Count 156 Sodium 140 Potassium 5.6 H BUN 28 H Creatinine 2.06 H Glucose 114 H Magnesium 2.2 Total Bilirubin 0.3 AST 27 ALT 33 Alkaline Phosphatase 70 Conclusions/Impression: Excisional biopsy of infected back subQ mass with Dr Hernandez and Dr Worthy approval ABX Off loading
[2024-06-18] MEDS ORDERED: propofoL 200 MG/20 ML VIAL IV ONE (09:49)
[2024-06-18] MEDS ORDERED: LIDOCAINE 2% MPF 5 ML VIAL ONE (09:50)
[2024-06-18] MEDS ORDERED: FENTANYL CITR 100 MCG/2 ML ONE (09:51)
[2024-06-18] MEDS ORDERED: MIDAZOLAM HCL 2 MG/2 ML INJ ONE (09:51)
[2024-06-18] MEDS: FAMOTIDINE 20 MG/2 ML VIAL IV ONE (09:54)
[2024-06-18] MEDS ORDERED: dexAMETHasone 4 MG/ML VIAL ONE (10:35)
[2024-06-18] MEDS ORDERED: ONDANSETRON 4 MG/2 ML VIAL ONE (10:35)
--- NOTE | 2024-06-18 11:04 | P.BOP ---
Preoperative diagnosis: infected back subQ mass Postoperative diagnosis: same Primary procedure: Excisional biopsy of infected back subQ mass 5x6cm Estimated blood loss: <10cc Specimen: mass, pus culture Findings: mass with abscess Anesthesia: General Complications: None Transferred to: Recovery Room Condition: Good
--- NOTE | 2024-06-18 11:41 | P.PN ---
Subjective Date of Service: 06/18/24 Chief Complaint: Hyperkalemia, acute kidney injury Pt is resting comfortably in bed. Gen surgeon took him to the OR for excision of the subq mass. Pt received lokelma for elevated potassium. Renal function is improving. No other complaints. Review of Systems General: Unremarkable Eyes: Unremarkable ENT: Unremarkable Respiratory: Unremarkable Cardiovascular: Unremarkable Gastrointestinal: Unremarkable Genitourinary: Unremarkable Musculoskeletal: Unremarkable Integumentary: Lesions (on back) Neurological: Unremarkable Lymphatics: Unremarkable Physical Examination - Vital Signs Temperature: 97.0 F Blood Pressure: 160/74 Pulse: 61 Respirations: 12 Pulse Ox (%): 100 - Physical Exam General: Alert, In no apparent distress, Oriented x3 HEENT: Atraumatic, Normocephalic, PERRLA Neck: Supple, 2+ carotid pulse no bruit, JVD not distended Respiratory: Clear to auscultation bilaterally, Normal air movement Cardiovascular: No edema, Normal pulses, Regular rate/rhythm, Normal S1 S2 Capillary refill: <2 Seconds Gastrointestinal: Normal bowel sounds, Soft and benign, Non-distended Musculoskeletal: No clubbing, No swelling, No contractures Integumentary: No rashes, No breakdown, Skin lesion (on back) Neurological: Normal gait, Normal speech, Normal strength at 5/5 x4 extr, Normal tone, Sensation intact Lymphatics: No axilla or inguinal lymphadenopathy - Studies Laboratory Data (last 24 hrs) 06/18/24 06/18/24 06:19 06:19 WBC 5.00 Hgb 10.9 L Hct 33.3 L Plt Count 156 Sodium 140 Potassium 5.6 H BUN 28 H Creatinine 2.06 H Glucose 114 H Magnesium 2.2 Total Bilirubin 0.3 AST 27 ALT 33 Alkaline Phosphatase 70 Microbiology Data (last 24 hrs): 06/17/24 01:25 Wound - Back Gram Stain - Final Assessment And Plan - Plan Hyperkalemia: K is 5.6 <- 5.5. Due to recent exposure to bactrim. Will give lokelma and IVF. Acute kidney injury: Cr is 2.06<- 2.88. Due to recent exposure to Bactrim. Will continue IVF, avoid nephrotoxins, and monitor renal function. Cellulitis and wound on upper back: Will get a wound culture. Continue iv abx. Consulted Dr. Soto. Will go to the OR today for excision of the 5 x 6 cm subq mass. Hypertension: Will continue home meds Hyperlipidemia: Continue statin CHF not in exacerbation: Stable. Will monitor BP and volume status. GI ppx: protonix DVT ppx: SCD Code: full code DIspo: pending hospital course.
[2024-06-18] MEDS ORDERED: VANCOMYCIN 1.75 GM in NA CHLORIDE 0.9% 500 ML IVPB SCH (14:00)
[2024-06-18 17:42] LABS: Anion Gap 12.2 mEq/L (5.0-15.0); Potassium 5.2 mEq/L (3.5-5.1)
--- NOTE | 2024-06-18 21:29 | P.PN ---
Date of Service: 06/18/24 Vital Signs Temp Pulse Resp BP Pulse Ox 97.4 F 65 18 173/86 H 100 06/18/24 16:00 06/18/24 16:00 06/18/24 16:00 06/18/24 16:00 06/18/24 16:00 Medications Acetaminophen (Acetaminophen 325 Mg Tablet) 650 mg PO Q4HP PRN PRN Reason: Pain scale 2-4 (Mild) Hydrocodone Bitart/Acetaminophen (Hydrocodone/Apap 5/325 Mg Tab) 1 tab PO Q4H PRN PRN Reason: Pain scale 5-7 (Moderate) Heparin Sodium (Porcine) (Heparin 5000 Unit/Ml 1 Ml Vial) 5,000 unit SQ Q8HR [facility] Last Admin: 06/18/24 16:22 Dose: 5,000 unit Sodium Chloride (Ns 1000 Ml Ivbag) 1,000 mls @ 100 mls/hr IV .Q10H [facility] Last Admin: 06/18/24 12:58 Dose: 1,000 mls Ceftriaxone Sodium 1,000 mg/ (Sodium Chloride) 50 mls @ 100 mls/hr IVPB DAILY@0000 [facility]; Protocol Last Admin: 06/18/24 00:08 Dose: 50 mls Vancomycin HCl 1.5 gm/ Sodium (Chloride) 500 mls @ 250 mls/hr IVPB Q48H [facility] Morphine Sulfate (Morphine 2 Mg/Ml Syr) 2 mg IV Q4H PRN PRN Reason: Pain scale 8-10 (Severe) Ondansetron HCl (Ondansetron 4 Mg/2 Ml Vial) 4 mg IV Q6HP PRN PRN Reason: NAUSEA / VOMITING Lab Results (last 24 hrs) 06/18/24 20:04: POC Glucose 334 H 06/18/24 17:10: Sodium 136, Potassium 5.2 H, Chloride 108 H, Carbon Dioxide 21, Anion Gap 12.2, BUN 30 H, Creatinine 2.17 H, Est GFR (CKD-EPI) 32 L, Glucose 260 H, Calcium 8.9 06/18/24 16:12: POC Glucose 239 H 06/18/24 11:57: POC Glucose 140 H 06/18/24 08:33: POC Glucose 128 H 06/18/24 06:19: Sodium 140, Potassium 5.6 H, Chloride 115 H, Carbon Dioxide 21, Anion Gap 9.6, BUN 28 H, Creatinine 2.06 H, Est GFR (CKD-EPI) 34 L, Glucose 114 H, Calcium 8.7, Magnesium 2.2, Total Bilirubin 0.3, AST 27, ALT 33, Alkaline Phosphatase 70, Serum Total Protein 6.3 L, Albumin 3.0 L, Globulin 3.3, Albumin/Globulin Ratio 0.9 L 06/18/24 06:19: WBC 5.00, RBC 3.33 L, Hgb 10.9 L, Hct 33.3 L, MCV 100.2 H, MCH 32.6, MCHC 32.6, RDW 13.6, Plt Count 156, MPV 7.7, Neutrophils % 58.8, Lymphocytes % 28.2, Monocytes % 9.6, Eosinophils % 2.7, Basophils % 0.7, Absolute Neutrophils 2.9, Absolute Lymphocytes 1.4, Absolute Monocytes 0.5, Absolute Eosinophils 0.1, Absolute Basophils 0.0 Microbiology Results 06/17/24 01:25 Wound - Back Gram Stain - Final 06/17/24 01:25 Wound - Back Culture & Sensitivity - Preliminary Assessment/ Plan: Nephrology No dyspnea No chest pain No acute events overnight Vitals, medications, blood work and imaging reviewed in the chart General: In no apparent distress, Oriented x3, Cooperative HEENT: Atraumatic Neck: Supple Respiratory: Clear to auscultation bilaterally, Normal air movement Cardiovascular: No edema, Regular rate/rhythm Gastrointestinal: Soft and benign, Non-distended Musculoskeletal: No clubbing, No contractures Integumentary: No rashes, No cyanosis Neurological: Normal speech Laboratory Data (last 24 hrs) 06/17/24 06/17/24 04:14 04:14 WBC 5.60 Hgb 10.4 L Hct 30.6 L Plt Count 178 Sodium 138 Potassium 5.5 H D BUN 45 H Creatinine 2.88 H Glucose 116 H Phosphorus 4.9 Magnesium 2.4 Total Bilirubin 0.3 AST 18 ALT 27 Alkaline Phosphatase 71 Imagings Data: CXR 06-16-24 COMPARISON: No prior exam. FINDINGS: The lungs are well inflated and clear. The heart is normal in size. No displaced fractures evident. Single-lead pacer device. Sternotomy wires. IMPRESSION: No acute or significant abnormalities. Conclusions/Impression: Stage II DAVIN in the setting of Bactrim CKD III with Proteinuria -No NSAIDs -Continue IVF -Hold Bactrim Hyperkalemia -Lokelma as ordered -Hold Bactrim -Renal Diet -Repeat BMP 1730 HTN with CKD/ CHF -Restart home antihypertensives as indicated Diastolic CHF, chronic -Daily weight DM II with Polyneuropathy & CKD -RISS prn Anemia in chronic illness -Monitor H&H Epidermal Cyst/ Back Abscess -Continue Vancomycin; monitor level -Follow up with surgery Case reviewed with Dr. Soto and Dr. Hampton
[2024-06-18] MEDS ORDERED: D10W 125 ML IV PRN (22:51)
[2024-06-18] MEDS ORDERED: GLUCAGON 1 MG/VIAL IM PRN (22:51)
[2024-06-18] MEDS: INSULIN REGULAR (HUMAN) 100 UNIT/ML SQ SCH (23:29)
[2024-06-19] MEDS: VANCOMYCIN 1.5 GM in NA CHLORIDE 0.9% 500 ML IVPB SCH (03:29)
[2024-06-19 05:30] LABS: Albumin 3.3 g/dL (3.4-5.0); Anion Gap 11.3 mEq/L (5.0-15.0); Phosphorus 3.4 mg/dL (2.5-4.9); Potassium 5.3 mEq/L (3.5-5.1)
[2024-06-19] MEDS ORDERED: INSULIN REGULAR (HUMAN) 100 UNIT/ML SQ SCH (07:30)
[2024-06-19] MEDS: SODIUM ZIRCONIUM CYCLOSILICATE 10 GM/PKT PO SCH ×2 (08:45→09:30)
--- NOTE | 2024-06-19 10:01 | P.PN ---
Date of Service: 06/19/24 Vital Signs Temp Pulse Resp BP Pulse Ox 98.3 F 61 16 163/79 H 97 06/19/24 08:00 06/19/24 08:00 06/19/24 08:00 06/19/24 08:00 06/19/24 08:00 Medications Acetaminophen (Acetaminophen 325 Mg Tablet) 650 mg PO Q4HP PRN PRN Reason: Pain scale 2-4 (Mild) Hydrocodone Bitart/Acetaminophen (Hydrocodone/Apap 5/325 Mg Tab) 1 tab PO Q4H PRN PRN Reason: Pain scale 5-7 (Moderate) Glucagon (Glucagon 1 Mg/Vial) 1 mg IM 1X PRN PRN Reason: HYPOGLYCEMIA Heparin Sodium (Porcine) (Heparin 5000 Unit/Ml 1 Ml Vial) 5,000 unit SQ Q8HR [facility] Last Admin: 06/19/24 08:45 Dose: 5,000 unit Sodium Chloride (Ns 1000 Ml Ivbag) 1,000 mls @ 100 mls/hr IV .Q10H [facility] Last Admin: 06/18/24 23:32 Dose: 1,000 mls Ceftriaxone Sodium 1,000 mg/ (Sodium Chloride) 50 mls @ 100 mls/hr IVPB DAILY@0000 [facility]; Protocol Last Admin: 06/19/24 01:17 Dose: 50 mls Vancomycin HCl 1.5 gm/ Sodium (Chloride) 500 mls @ 250 mls/hr IVPB Q48H [facility] Last Admin: 06/19/24 03:29 Dose: 500 mls Dextrose (Dextrose 10% Water Iv Soln.) 125 mls @ 0 mls/hr IV PRN PRN; Protocol PRN Reason: HYPOGLYCEMIA Insulin Human Regular (Insulin Regular (Human) 100 Unit/Ml) 0 unit SQ ACHS [facility]; Protocol Last Admin: 06/19/24 08:44 Dose: 4 unit Morphine Sulfate (Morphine 2 Mg/Ml Syr) 2 mg IV Q4H PRN PRN Reason: Pain scale 8-10 (Severe) Ondansetron HCl (Ondansetron 4 Mg/2 Ml Vial) 4 mg IV Q6HP PRN PRN Reason: NAUSEA / VOMITING Sodium Bicarbonate (Sodium Bicarb 325 Mg Tab) 650 mg PO TIDWM [facility] Lab Results (last 24 hrs) 06/19/24 07:27: POC Glucose 162 H 06/19/24 02:15: Sodium 132 L, Potassium 5.3 H, Chloride 110 H, Carbon Dioxide 16 L, Anion Gap 11.3, BUN 28 H, Creatinine 2.08 H, Est GFR (CKD-EPI) 33 L, Glucose 195 H, Calcium 8.7, Phosphorus 3.4, Albumin 3.3 L 06/19/24 02:15: Vancomycin Trough 7.4 06/18/24 20:04: POC Glucose 334 H 06/18/24 17:10: Sodium 136, Potassium 5.2 H, Chloride 108 H, Carbon Dioxide 21, Anion Gap 12.2, BUN 30 H, Creatinine 2.17 H, Est GFR (CKD-EPI) 32 L, Glucose 260 H, Calcium 8.9 06/18/24 16:12: POC Glucose 239 H 06/18/24 11:57: POC Glucose 140 H Microbiology Results 06/18/24 10:28 Wound - Back Culture & Sensitivity - Preliminary No growth. 06/17/24 01:25 Wound - Back Gram Stain - Final 06/17/24 01:25 Wound - Back Culture & Sensitivity - Final Assessment/ Plan: Nephrology No dyspnea No chest pain No acute events overnight Vitals, medications, blood work and imaging reviewed in the chart General: In no apparent distress, Oriented x3, Cooperative HEENT: Atraumatic Neck: Supple Respiratory: Clear to auscultation bilaterally, Normal air movement Cardiovascular: No edema, Regular rate/rhythm Gastrointestinal: Soft and benign, Non-distended Musculoskeletal: No clubbing, No contractures Integumentary: No rashes, No cyanosis Neurological: Normal speech Laboratory Data (last 24 hrs) 06/17/24 06/17/24 04:14 04:14 WBC 5.60 Hgb 10.4 L Hct 30.6 L Plt Count 178 Sodium 138 Potassium 5.5 H D BUN 45 H Creatinine 2.88 H Glucose 116 H Phosphorus 4.9 Magnesium 2.4 Total Bilirubin 0.3 AST 18 ALT 27 Alkaline Phosphatase 71 Imagings Data: CXR 06-16-24 COMPARISON: No prior exam. FINDINGS: The lungs are well inflated and clear. The heart is normal in size. No displaced fractures evident. Single-lead pacer device. Sternotomy wires. IMPRESSION: No acute or significant abnormalities. Conclusions/Impression: Stage II DAVIN in the setting of Bactrim CKD III with Proteinuria -No NSAIDs -Continue IVF -Hold Bactrim Hyponatremia -Continue IVF with NS -Encourage nutrition -Free water restriction as needed Hyperkalemia -Lokelma as ordered -Hold Bactrim -Low potassium diet NAG Metabolic Acidosis -Oral bicarb as ordered HTN with CKD/ CHF -Restart Metoprolol -Restart Imdur Diastolic CHF, chronic -Daily weight DM II with Polyneuropathy & CKD -RISS Anemia in chronic illness -Monitor H&H Epidermal Cyst/ Back Abscess -Continue Vancomycin; monitor level -Surgical Excision back mass 06-18-24; pathology reviewed Case reviewed with hospitalist team Hospitalist and surgery notes reviewed
--- NOTE | 2024-06-19 10:39 | P.PN ---
Subjective Date of Service: 06/19/24 Chief Complaint: Hyperkalemia, acute kidney injury Pt is resting comfortably in bed. Gen surgeon took him to the OR on 06/18/24 for excision of the subq mass. Pt will receive another lokelma for elevated potassium ( 5.3). Renal function is improving. No other complaints. Review of Systems General: Unremarkable Eyes: Unremarkable ENT: Unremarkable Respiratory: Unremarkable Cardiovascular: Unremarkable Gastrointestinal: Unremarkable Genitourinary: Unremarkable Musculoskeletal: Unremarkable Integumentary: Unremarkable Neurological: Unremarkable Lymphatics: Unremarkable Physical Examination - Vital Signs Temperature: 98.3 F Blood Pressure: 163/79 Pulse: 61 Respirations: 16 Pulse Ox (%): 97 - Physical Exam General: Alert, In no apparent distress, Oriented x3 HEENT: Atraumatic, Normocephalic, PERRLA Neck: Supple, 2+ carotid pulse no bruit, JVD not distended Respiratory: Clear to auscultation bilaterally, Normal air movement Cardiovascular: No edema, Normal pulses, Regular rate/rhythm, Normal S1 S2 Capillary refill: <2 Seconds Gastrointestinal: Normal bowel sounds, Soft and benign, Non-distended Musculoskeletal: No clubbing, No swelling, No contractures, No erythema Integumentary: No rashes, No breakdown, No tenderness/swelling, Skin lesion (on his back) Neurological: Normal gait, Normal speech, Normal strength at 5/5 x4 extr, Normal tone, Sensation intact, Cranial nerves 3-12 intact Lymphatics: No axilla or inguinal lymphadenopathy - Studies Laboratory Data (last 24 hrs) 06/19/24 06/18/24 02:15 17:10 Sodium 132 L 136 Potassium 5.3 H 5.2 H BUN 28 H 30 H Creatinine 2.08 H 2.17 H Glucose 195 H 260 H Phosphorus 3.4 Microbiology Data (last 24 hrs): 06/17/24 01:25 Wound - Back Gram Stain - Final 06/17/24 01:25 Wound - Back Culture & Sensitivity - Final Assessment And Plan - Plan Hyperkalemia: K is 5.3<- 5.6 <- 5.5. Due to recent exposure to bactrim. Will give on dose of lokelma and IVF. Acute kidney injury: Cr is 2.08<- 2.06<- 2.88. Due to recent exposure to Bactrim. Will continue IVF, avoid nephrotoxins, and monitor renal function. Cellulitis and wound on upper back: Will get a wound culture. Continue iv abx. Consulted Dr. Soto. Will go to the OR today for excision of the 5 x 6 cm subq mass. Hypertension: Will continue home meds Hyperlipidemia: Continue statin CHF not in exacerbation: Stable. Will monitor BP and volume status. GI ppx: protonix DVT ppx: SCD Code: full code DIspo: pending hospital course. Will dc once cleared by Nephrology and Gen surgeon.
[2024-06-19] MEDS: SODIUM BICARB 325 MG TAB PO ONE (11:24)
[2024-06-19] MEDS: ISOSORBIDE MONO SR 30 MG TAB PO SCH (11:24)
[2024-06-19] MEDS: DOXYCYCLINE 100 MG CAP PO SCH (11:33)
[2024-06-19] MEDS: SODIUM BICARB 325 MG TAB PO SCH (12:00)
--- NOTE | 2024-06-19 14:40 | P.DS ---
Admission Date: 06/16/24 Discharge Date: 06/19/24 Disposition: ROUTINE DISCHARGE Discharge Condition: GOOD Reason for Admission: Hyperkalemia, acute kidney injury Brief History of Present Illness: 74-year-old male with a past medical history of hypertension, hyperlipidemia,, diabetes, chronic back pain and wound infection on the upper back transferred from [facility] and was found to have hyperkalemia and acute kidney injury . Patient was admitted for possible debridement and treatment by Dr. Soto as the patient had Wound in the upper back . The workup in [facility] found to be having hyperkalemia and acute kidney injury and was sent over here for further management. Patient denies any chest pain or shortness of breath. No fever or chills. Denies any nausea vomiting or diarrhea. Hospital Course: Pt is a 74yo male with a past medical history of hypertension, hyperlipidemia,, diabetes, chronic back pain and wound infection on the upper back who was transferred from [facility] and was found to have hyperkalemia and acute kidney injury. Patient was admitted for debridement and treatment by Dr. Soto as the patient had Wound in the upper back. The lab studies showed elevated Cr and hyperkalemia. We admitted pt and gave lokelma for hyperkalemia. Pt also received IVF for DAVIN. Nephrology managed renal function. Dr. Soto took pt to the OR on 06/18/24 for excision of the 5 x 6 cm subq mass. Pt felt better post op. We ordered home health for wound care at home. We also continued home med for other chronic medical problems. Pt was discharged with Doxycycline 100mg po BID for 7 days. He was in NAD prior to discharge. Vital Signs/Physical Exam: Temp Pulse Resp BP Pulse Ox 97 F 79 17 147/64 H 97 06/19/24 11:58 06/19/24 11:58 06/19/24 11:58 06/19/24 11:58 06/19/24 11:58 Laboratory Data at Discharge: WBC 5.00 thou/uL (4.3-10.9) 06/18/24 06:19 Hgb 10.9 g/dL (13.6-17.9) L 06/18/24 06:19 Hct 33.3 % (39.6-49.0) L 06/18/24 06:19 Plt Count 156 thou/uL (152-406) 06/18/24 06:19 Sodium 132 mEq/L (136-145) L 06/19/24 02:15 Potassium 5.3 mEq/L (3.5-5.1) H 06/19/24 02:15 BUN 28 mg/dL (7-18) H 06/19/24 02:15 Creatinine 2.08 mg/dL (0.70-1.30) H 06/19/24 02:15 Glucose 195 mg/dL (74-106) H 06/19/24 02:15 Phosphorus 3.4 mg/dL (2.5-4.9) 06/19/24 02:15 Magnesium 2.2 mg/dL (1.6-2.4) 06/18/24 06:19 Total Bilirubin 0.3 mg/dL (0.2-1.0) 06/18/24 06:19 AST 27 U/L (15-37) 06/18/24 06:19 ALT 33 U/L (16-61) 06/18/24 06:19 Alkaline Phosphatase 70 U/L (45-117) 06/18/24 06:19 Home Medications: Acetaminophen [8Hr Arthritis Pain Relief] 650 mg PO TIDP PRN 03/29/23 Acetaminophen with Codeine [Acetaminophen-Cod #3 Tablet] 1 each PO BIDP PRN 03/29/23 Allopurinol 300 mg PO DAILY 03/29/23 Amiloride HCl [Midamor*] 5 mg PO SEECOM 03/29/23 Apixaban [Eliquis *] 2.5 mg PO BID 03/29/23 Aspirin [Low Dose Aspirin EC] 81 mg PO DAILY 03/29/23 Atorvastatin Calcium [Lipitor] 40 mg PO BEDTIME 03/29/23 Cholecalciferol (Vitamin D3) [Vitamin D3] 25 mcg PO DAILY 03/29/23 Cider Vinegar [Apple Cider Vinegar] 1 tab PO BID 03/29/23 Docusate Sodium [Stool Softener] 250 mg PO BEDTIME 03/29/23 Doxazosin [Cardura*] 2 mg PO DAILY 03/29/23 Dulaglutide [Trulicity] 1.5 mg SQ EVERY 7TH DAY 03/29/23 Ferrous Sulfate [Ferrous Sulfate*] 325 mg PO BIDWM 03/29/23 Fluticasone [Flonase 50MCG Nasal [place]*] 1 spray NS DAILY 03/29/23 Furosemide [Lasix*] 20 mg PO DAILY 03/29/23 Isosorbide Mononitrate [Isosorbide Mononitrate ER] 30 mg PO DAILY 03/29/23 Metformin ER [Glucophage ER*] 500 mg PO DAILY 03/29/23 Multivitamin with Minerals [Multivitamins with Minerals] 1 each PO DAILY 03/29/23 Ramipril 10 mg PO DAILY 03/29/23 Trazodone HCl 50 mg PO BEDTIME 03/29/23 Cinnamon Bark/Chromium Picolin [Cinnamon Plus Chromium Capsule] 1 each PO BID 06/16/24 Escitalopram Oxalate [Lexapro] 5 mg PO DAILY 06/16/24 Linagliptin [Tradjenta] 5 mg PO BEDTIME 06/16/24 Magnesium Oxide [Magnesium] 400 mg PO BID 06/16/24 Melatonin 10 mg PO BEDTIME PRN PRN 06/16/24 Metoprolol Tartrate [Lopressor*] 50 mg PO BID 06/16/24 [place]-3 Fatty Acids [[place]-3] 1 cap PO BID 06/16/24 Omeprazole [Prilosec] 40 mg PO NOON 06/16/24 Mupirocin Oint [Bactroban 2% Ointment*] 1 espinoza TOP DAILY 06/17/24 Nystatin 1 espinoza TOP BIDP PRN 06/17/24 Doxycycline Hyclate 100 mg PO BID 7 Days #14 tab 06/19/24 Hydrocodone 5/APAP 325 [[place] 5/325*] 1 tab PO Q4H PRN 3 Days #18 tab 06/19/24 New Medications: Doxycycline Hyclate 100 mg PO BID 7 Days #14 tab Hydrocodone 5/APAP 325 [[place] 5/325*] 1 tab PO Q4H PRN 3 Days #18 tab PRN Reason: Pain Scale 5-7 (Moderate) Physician Discharge Instructions: wet to dry NS daily F/u at [facility] [place] next sundayJun 24 . Pt to call for appt. Followup: Zheng Soto MD [ACTIVE - CAN ADMIT] - 1-2 Weeks
--- NOTE | 2024-06-19 16:09 | PN ---
Date of Progress Note: 06/19/2024 Subjective: Status post excisional biopsy of infected subcutaneous mass. Patient is doing better. Surgical site is intact. Plan: The will be taught right now how to do wet-to-dry saline. If she is not able, he might n eed [facility] to help him with that. We explained to the how to do dressing changes and also how to follow up at the [facility]. Also they live near that area and they prefer [facility]. I will be there to help him. They were advised to call the [facility] to get the timing of the followup. WAYNE/CHAYA Voice ID: [id number] Report ID: [id number]
[2024-06-19] MEDS: METOPROLOL TAR 25 MG TAB PO SCH (17:09)
[2024-06-20 06:56] LABS: Albumin 3.1 g/dL (3.4-5.0); Anion Gap 10.5 mEq/L (5.0-15.0); Phosphorus 3.4 mg/dL (2.5-4.9); Potassium 4.5 mEq/L (3.5-5.1)
[2024-06-20 09:21] VITALS: O2SAT 98
--- NOTE | 2024-06-20 10:30 | P.DS ---
Admission Date: 06/16/24 Discharge Date: 06/20/24 Disposition: DC HOME/HOME HEALTH CARE Discharge Condition: GOOD Reason for Admission: Hyperkalemia, acute kidney injury Brief History of Present Illness: 74-year-old male with a past medical history of hypertension, hyperlipidemia,, diabetes, chronic back pain and wound infection on the upper back transferred from [facility] and was found to have hyperkalemia and acute kidney injury . Patient was admitted for possible debridement and treatment by Dr. Soto as the patient had Wound in the upper back . The workup in [facility] found to be having hyperkalemia and acute kidney injury and was sent over here for further management. Patient denies any chest pain or shortness of breath. No fever or chills. Denies any nausea vomiting or diarrhea. Hospital Course: Pt is a 74yo male with a past medical history of hypertension, hyperlipidemia,, diabetes, chronic back pain and wound infection on the upper back who was transferred from [facility] and was found to have hyperkalemia and acute kidney injury. Patient was admitted for debridement and treatment by Dr. Soto as the patient had Wound in the upper back. The lab studies showed elevated Cr and hyperkalemia. We admitted pt and gave lokelma for hyperkalemia. Pt also received IVF for DAVIN. Nephrology managed renal function. Dr. Soto took pt to the OR on 06/18/24 for excision of the 5 x 6 cm subq mass. Pt felt better post op. We ordered home health for wound care at home. We also continued home med for other chronic medical problems. Pt was discharged with Doxycycline 100mg po BID for 7 days. He was in NAD prior to discharge on 06/20/24 after living manager set up home health. Vital Signs/Physical Exam: Temp Pulse Resp BP Pulse Ox 98 F 100 H 16 140/68 98 06/20/24 04:00 06/20/24 06:00 06/20/24 04:00 06/20/24 06:00 06/20/24 04:00 Laboratory Data at Discharge: WBC 5.00 thou/uL (4.3-10.9) 06/18/24 06:19 Hgb 10.9 g/dL (13.6-17.9) L 06/18/24 06:19 Hct 33.3 % (39.6-49.0) L 06/18/24 06:19 Plt Count 156 thou/uL (152-406) 06/18/24 06:19 Sodium 138 mEq/L (136-145) D 06/20/24 05:55 Potassium 4.5 mEq/L (3.5-5.1) D 06/20/24 05:55 BUN 23 mg/dL (7-18) H 06/20/24 05:55 Creatinine 1.66 mg/dL (0.70-1.30) H 06/20/24 05:55 Glucose 123 mg/dL (74-106) H 06/20/24 05:55 Phosphorus 3.4 mg/dL (2.5-4.9) 06/20/24 05:55 Magnesium 2.2 mg/dL (1.6-2.4) 06/18/24 06:19 Total Bilirubin 0.3 mg/dL (0.2-1.0) 06/18/24 06:19 AST 27 U/L (15-37) 06/18/24 06:19 ALT 33 U/L (16-61) 06/18/24 06:19 Alkaline Phosphatase 70 U/L (45-117) 06/18/24 06:19 Home Medications: Acetaminophen [8Hr Arthritis Pain Relief] 650 mg PO TIDP PRN 03/29/23 Acetaminophen with Codeine [Acetaminophen-Cod #3 Tablet] 1 each PO BIDP PRN 03/29/23 Allopurinol 300 mg PO DAILY 03/29/23 Amiloride HCl [Midamor*] 5 mg PO SEECOM 03/29/23 Apixaban [Eliquis *] 2.5 mg PO BID 03/29/23 Aspirin [Low Dose Aspirin EC] 81 mg PO DAILY 03/29/23 Atorvastatin Calcium [Lipitor] 40 mg PO BEDTIME 03/29/23 Cholecalciferol (Vitamin D3) [Vitamin D3] 25 mcg PO DAILY 03/29/23 Cider Vinegar [Apple Cider Vinegar] 1 tab PO BID 03/29/23 Docusate Sodium [Stool Softener] 250 mg PO BEDTIME 03/29/23 Doxazosin [Cardura*] 2 mg PO DAILY 03/29/23 Dulaglutide [Trulicity] 1.5 mg SQ EVERY 7TH DAY 03/29/23 Ferrous Sulfate [Ferrous Sulfate*] 325 mg PO BIDWM 03/29/23 Fluticasone [Flonase 50MCG Nasal [place]*] 1 spray NS DAILY 03/29/23 Furosemide [Lasix*] 20 mg PO DAILY 03/29/23 Isosorbide Mononitrate [Isosorbide Mononitrate ER] 30 mg PO DAILY 03/29/23 Metformin ER [Glucophage ER*] 500 mg PO DAILY 03/29/23 Multivitamin with Minerals [Multivitamins with Minerals] 1 each PO DAILY 03/29/23 Ramipril 10 mg PO DAILY 03/29/23 Trazodone HCl 50 mg PO BEDTIME 03/29/23 Cinnamon Bark/Chromium Picolin [Cinnamon Plus Chromium Capsule] 1 each PO BID 06/16/24 Escitalopram Oxalate [Lexapro] 5 mg PO DAILY 06/16/24 Linagliptin [Tradjenta] 5 mg PO BEDTIME 06/16/24 Magnesium Oxide [Magnesium] 400 mg PO BID 06/16/24 Melatonin 10 mg PO BEDTIME PRN PRN 06/16/24 Metoprolol Tartrate [Lopressor*] 50 mg PO BID 06/16/24 H[place]-3 Fatty Acids [Hasty-3] 1 cap PO BID 06/16/24 Omeprazole [Prilosec] 40 mg PO NOON 06/16/24 Mupirocin Oint [Bactroban 2% Ointment*] 1 espinoza TOP DAILY 06/17/24 Nystatin 1 espinoza TOP BIDP PRN 06/17/24 Doxycycline Hyclate 100 mg PO BID 7 Days #14 tab 06/19/24 Hydrocodone 5/APAP 325 [[place] 5/325*] 1 tab PO Q4H PRN 3 Days #18 tab 06/19/24 New Medications: Doxycycline Hyclate 100 mg PO BID 7 Days #14 tab Hydrocodone 5/APAP 325 [[place] 5/325*] 1 tab PO Q4H PRN 3 Days #18 tab PRN Reason: Pain Scale 5-7 (Moderate) Physician Discharge Instructions: wet to dry NS daily F/u at [facility] next sundayJun 24 . Pt to call for appt. Followup: Zheng Soto MD [ACTIVE - CAN ADMIT] - 1-2 Weeks
--- NOTE | 2024-06-20 11:53 | P.PN ---
Nephrology No dyspnea No chest pain No acute events overnight Vitals, medications, blood work and imaging reviewed in the chart General: In no apparent distress, Cooperative HEENT: Atraumatic, not on O2 Neck: Supple Respiratory: Clear to auscultation bilaterally mostly, Normal air movement Cardiovascular: No sig edema, Regular rate/rhythm mostly Gastrointestinal: Soft and benign, Non-distended Musculoskeletal: No contractures Integumentary: No rashes, Neurological: Normal speech Conclusions/Impression: Stage II DAVIN multifactorial CKD III with Proteinuria underlying -Cr level downward trending, f/u as OP Hyperkalemia -Resolved but hold home meds of Amiloride and Rampiril until seen in clinic HTN with CKD/ CHF -Current BP range acceptable Diastolic CHF, chronic -Cont lower dose maintenance loop diuretic on discharge Epidermal Cyst/ Back Abscess -Surgical Excision, Abx per primary team, avoid NSAIDs
[2024-06-20 12:41] VITALS: BP 128/74; TEMP 98.5
[2024-06-20] MEDS ORDERED: SODIUM BICARB 325 MG TAB PO SCH (21:00)
--- NOTE | 2024-06-23 10:25 | EKG ---
Test Date: 2024-06-20 Test Time: 09:12:02 Electrical Prospecting Operator: LASHA MEASUREMENT RESULTS: Intervals: Rate: 82 LA: QRSD: 98 QT: 368 QTc: 429 [place]: P: LA: QRS: -24 T: 201 INTERPRETIVE STATEMENTS: Atrial fibrillation with paced rhythm ST & T wave abnormality, consider lateral ischemia Abnormal ECG Compared to ECG 06/16/2024 14:52:01 ST (T wave) deviation now present Possible ischemia now present Ventricular-paced complex(es) or rhythm no longer present Electronically Signed On 06-23-24 10:22:45 CDT by Moises Trimble
== END 2024-06-20 14:45 | disposition home health service (06) | DRG 683 ==
LOC: 2ND 23:33
PROVIDERS: ADMIT Family Medicine; ATTEND Hospitalist
PROC: 0JB70ZX Excision of Back Subcutaneous Tissue and Fascia, Open Approach, Diagnostic (ICD-10-PCS; principal; 2024-06-18 11:45)
DX: N17.9 Acute kidney failure, unspecified (principal); E87.1 Hypo-osmolality and hyponatremia; L03.312 Cellulitis of back [any part except buttock and flank]; I50.32 Chronic diastolic (congestive) heart failure; I13.0 Hypertensive heart and chronic kidney disease with heart failure and stage 1 through stage 4 chronic kidney disease, or unspecified chronic kidney disease; L02.212 Cutaneous abscess of back [any part, except buttock and flank]; E87.20 Acidosis, unspecified; E87.5 Hyperkalemia; N18.30 Chronic kidney disease, stage 3 unspecified; E11.22 Type 2 diabetes mellitus with diabetic chronic kidney disease; E11.42 Type 2 diabetes mellitus with diabetic polyneuropathy; D63.1 Anemia in chronic kidney disease; G89.29 Other chronic pain; L72.0 Epidermal cyst; E78.00 Pure hypercholesterolemia, unspecified; M54.9 Dorsalgia, unspecified; F17.200 Nicotine dependence, unspecified, uncomplicated; Z79.01 Long term (current) use of anticoagulants; Z79.82 Long term (current) use of aspirin; Z79.899 Other long term (current) drug therapy; Z79.84 Long term (current) use of oral hypoglycemic drugs; Z86.73 Personal history of transient ischemic attack (TIA), and cerebral infarction without residual deficits; Z95.0 Presence of cardiac pacemaker; Z95.1 Presence of aortocoronary bypass graft
CPT/HCPCS: 36415; 80048; 80053; 80069; 80202; 81003; 82947; 83735; 84100; 85025; 87070; 87075; 87205; 88304; 93005; 94760; J0696; J1100; J1644; J2001; J2250; J2405; J2704; J3010; J7030; J7040

== ENCOUNTER 2024-07-29 14:51 | Inpatient (IN) | payer MEDICARE ==
--- OUTSIDE RECORDS SUMMARY | 2024-07-29 14:55 | XMS REPORT | Continuity of Care Document ---
Author Name Unknown Address [address] [facility] [address] [place] [address] [facility] Address [address] [facility] [address] [place] [address] Care Team Providers Care Peanut Sheller Name Role Phone SHERRY COLINDRES Primary Care Physician UnavailDavina Barnett Attending Clinician Unavailable Ayaan GARCIA, Gage Okeefe Attending Clinician UnavailLIZZ Saldaña Attending Clinician Unavailable Doctor Unassigned, [place] Attending Clinician U LUNA Calvert Attending Clinician Unavailable MELODY VILLA Attending Clinician Unavailable Melody Villa MD Attending Clinician [phone] Lizz Partida MD Attending Clinician [phone] [facility] Sleep Lab Bed Attending Clinician Unavail Juan Pablo Adhikari MD Attending Clinician JUAN PABLO ADAMS Attending Clinician UnavailJUAN PABLO Saravia Attending Clinician Unavaila ble 2, [facility] Lab Attending Clinician Unavailable RADIOLOGY Attending Clinician Unavailable Radiology Attending Clinician Unavailable Pob, [facility] Lab Main Attending Clinician UnavailSherry Bautista DO Attending Clinician [phone], [facility] Lab Attending Clinician Unavailable AMELIE ERNANDEZ Attending Clinician Unavailable Pc, [facility]c Vascular Room 1 - Attending Clinician Un available Luna Ortega DO Attending Clinician [phone] Pankaj Stockton MD Attending Clinician [phone] PANKAJ STOCKTON Attending Clinician Unavailable Prachi Butcher Attending Clinician [phone] Yuval CREWS, Andres Attending Clinician [phone] Danilo Danielle Anavella Attending Cli nician Unavailable Jodi Davenport Attending Clinician [phone] Davina Montenegro Admitting Clinician Unavailable Sherry Colindres Admitting Clinician Unavailable LUNA ORTEGA Admitting Clinician Unavailable MELODY VILLA Admitting Clinician Unavailable Frantz Danielle Anav Admitting Clinician U mushtaq Barakat MD, Andres Admitting Clinician [phone] Payers Payer Name Policy Type Policy Number Effective Date Expirati on Date Source [employer] MEDICARE ADVANTAGE [id number] 2019 00:00:00 [employer] (MEDICARE REPLACEMENT HMO) [id number] 2022 00:00:00 [employer] MEDICARE [id number] 2020 00:00:00 [facility] [id number] Problems Condition Name Condition Details Condition Category Status Onset Date Resolution Date Last Treatment Date Treating Clinician Comments Source Stage 3 chronic kidney disease, unspecifie d whether stage 3a or 3b CKD Stage 3 chronic kidney disease, unspecifie d whether stage 3a or 3b CKD Disease Active 4-13 00:00: 00 [facility] PAD (periphera l artery disease) PAD (periphera l artery disease) Disease Active 5-04 00:00: 00 [facility] Chronic heart failure with preserved ejection fraction Chronic heart failure with preserved ejection fraction Disease Active 01-25 00:00: 00 [facility] CAD (coronary artery disease) of artery bypass graft CAD (coronary artery disease) of artery bypass graft Disease Active 05-06 00:00: 00 [facility] Blood in stool Blood in stool Disease Active 02-13 00:00: 00 Overview: Formattin g of this note might be different from the original. Added automatic ally from request for surgery [id number] [facility] Esophageal reflux Esophageal reflux Disease Active 02-03 00:00: 00 Overview: Formattin g of this note might be different from the original. Added automatic ally from request for surgery [id number] [facility] Rectal bleeding Rectal bleeding Disease Active 02-03 00:00: 00 Overview: Formattin g of this note might be different from the original. Added automatic ally from request for surgery [id number] [facility] Frequent PVCs Frequent PVCs Disease Active 01-23 00:00: 00 [facility] Coronary artery disease involving [place] coronary artery of [place] heart with angina pectoris Coronary artery disease involving [place] coronary artery of [place] heart with angina pectoris Disease Active 01-23 00:00: 00 [facility] Diverticul itis Diverticul itis Disease Active 01-23 00:00: 00 [facility] NSVT (nonsustai rajwinder ventricula r tachycardi a) NSVT (nonsustai rajwinder ventricula r tachycardi a) Disease Active 01-23 00:00: 00 [facility] Frequent PVCs Frequent PVCs Disease Active 01-23 00:00: 00 [facility] Essential hypertensi on Essential hypertensi on Disease Active 01-23 00:00: 00 [facility] Bradycardi a Bradycardi a Disease Active 01-23 00:00: 00 [facility] Coronary artery disease involving [place] coronary artery of [place] heart with angina pectoris Coronary artery disease involving [place] coronary artery of [place] heart with angina pectoris Disease Active 01-23 00:00: 00 [facility] History of CVA (cerebrova scular accident) History of CVA (cerebrova scular accident) Disease Active 09-24 00:00: 00 [facility] HTN (hypertens ion) HTN (hypertens ion) Disease Active [facility] Diabetes mellitus Diabetes mellitus Disease Active [facility] HLD (hyperlipi demia) HLD (hyperlipi demia) Disease Active [facility] Atrial fibrillati on Atrial fibrillati on Disease Active [facility] Allergies, Adverse Reactions, Alerts Allergy Name Allergy Type Status Severity Reaction(s) Onset Date Inactive Date Treating Clinician Comments Source No Known Allergie s DA Active U 05-02 00:00: 00 [facility] NO KNOWN ALLERGIE S Drug Class Active [facility] Social History Social Habit Start Date Stop Date Quantity Comments Source History of tobacco use Cigarette Smoker [facility] Alcohol intake 2022-06-25 00:00:00 2022-06-25 00:00:00 Current non-drinker of alcohol (finding) [facility] Exposure to SARS-CoV-2 (event) 2022-05-15 00:00:00 2022-05-25 23:31:00 Not sure [facility] Cigarettes smoked current (pack per day) - Reported 2019-04-03 00:00:00 2019-04-03 00:00:00 [facility] Cigarette pack-years 2019-04-03 00:00:00 2019-04-03 00:00:00 [facility] Tobacco use and exposure 2019-04-03 00:00:00 2019-04-03 00:00:00 Smokeless tobacco non-user [facility] Sex Assigned At 1950 00:00:00 1950 00:00:00 [facility] Smoking Status Start Date Stop Date Source Ex-smoker 2019-04-03 00:00:00 2019-04-03 00:00:00 [facility] Medications Ordered Medication Name Filled Medication Name Start Date Stop Date Current Medication? Ordering Clinician Indication Dosage Frequency Signature (SIG) Comments Components Source iopamidol (ISOVUE 370-500 mL) injection 65 mL 05-26 08:15: 00 05-26 08:15 :00 No [id number] 65mL 65 mL, Intravenou s, ONCE, 1 dose, On Sun05/26/22 at 0315, Routine [facility] amoxicillin 875 mg tablet 05-26 00:00: 00 Yes [id number] 875mg Take 1 tablet by mouth in the morning and 1 tablet in the evening. [facility] furosemide 20 mg tablet 314 00:00: 00 Yes 20mg Take 1 tablet by mouth daily. [facility] aMILoride 5 mg tablet 01-26 00:00: 00 Yes 5mg Take 1 tablet by mouth daily. [facility] fluticasone 50 mcg/actuati on nasal spray 01-25 11:09: 43 Yes 1{spray } Use 1 Ducor in each nostril daily. [facility] glipiZIDE 5 mg tablet 01-25 11:09: 43 Yes 5mg Take 5 mg by mouth daily. [facility] omeprazole 40 mg capsule 01-25 11:09: 43 Yes 40mg Take 40 mg by mouth daily. [facility] sucralfate 1 gram tablet 01-25 11:09: 43 Yes 1g Take 1 g by mouth before meals and at bedtime. [facility] traZODONE 50 mg tablet 01-25 11:09: 43 Yes 50mg Take 50 mg by mouth at bedtime. [facility] dulaglutide (TRULICITY) 0.75 mg/0.5 mL PnIj 01-25 11:09: 43 Yes inject under the skin. [facility] DOCUSATE SODIUM ORAL 01-25 11:09: 43 Yes Take by mouth daily. [facility] aspirin 81 mg chewable tablet 01-25 11:09: 43 Yes 81mg Take 81 mg by mouth daily. [facility] lidocain/me -salicyl/ca ps/menth (1ST MEDX-PATCH WITH LIDOCAINE TOPICAL) 01-25 11:09: 43 Yes 2{patch } Apply 2 Patches to area(s) daily. [facility] LANCETS & BLOOD GLUCOSE STRIPS MISC 2019-09 11:27: 47 Yes [facility] apixaban 5 mg tablet 10-28 00:00: 00 Yes [id number] 5mg Take 1 tablet by mouth 2 (two) times daily. Indication s: atrial fibrillati on [facility] metoprolol tartrate 50 mg tablet 05-09 00:00: 00 Yes [id number] 50mg Take 1 tablet by mouth 2 (two) times daily. [facility] atorvastati n 40 mg tablet 05-09 00:00: 00 Yes [id number] 40mg Take 1 tablet by mouth at bedtime. [facility] polyethylen e glycol 17 gram/dose powder 05-09 00:00: 00 Yes 17g Take 17 g by mouth 2 (two) times daily as needed for Constipati on. [facility] LOVAZA, omega-3-aci d ethyl esters, 1 gram capsule 03-25 00:00: 00 Yes 2{capsu le} Take 2 capsules by mouth daily. [facility] allopurinol 300 mg tablet 03-01 00:00: 00 Yes 300mg Take 300 mg by mouth daily. [facility] Vital Signs Vital Name Observation Time Observation Value Comments S sonali Systolic blood pressure 2022-05-26 07:00:00 146 mm[Hg] [facility] Diastolic blood pressure 2022-05-26 07:00:00 67 mm[Hg] [facility] Heart rate 2022-05-26 07:00:00 52 /min [facility] Respiratory rate 2022-05-26 07:00:00 18 /min [facility] Oxygen saturation in Arterial blood by Pulse oximetry 2022-05-26 07:00:00 93 /min [facility] Body temperature 2022-05-26 04:31:00 36.78 Deborah [facility] Body height 2022-05-26 04:31:00 182.9 cm [facility] Body weight 2022-05-26 04:31:00 105.325 kg [facility] BMI 2022-05-26 04:31:00 31.49 kg/m2 [facility] Systolic blood pressure 2022-01-04 15:54:00 153 mm[Hg] [facility] Diastolic blood pressure 2022-01-04 15:54:00 65 mm[Hg] [facility] Heart rate 2022-01-04 15:49:00 74 /min [facility] Body weight 2022-01-04 15:49:00 104.781 kg [facility] BMI 2022-01-04 15:49:00 30.48 kg/m2 [facility] Oxygen saturation in Arterial blood by Pulse oximetry 2022-01-04 15:49:00 100 /min [facility] Procedures Procedure Date / Time Performed Performing Clinician Source AUTHORIZATION FOR RELEASE OF PHI 2022-10-06 06:01:00 Doctor Unassigned, [place] [facility] CT ABDOMEN PELVIS W CONTRAST 2022-05-26 07:21:21 Melody Villa [facility] COMP. METABOLIC PANEL ([id number]) 2022-05-26 05:05:00 Melody Villa [facility] CBC WITH DIFF 2022-05-26 05:05:00 [facility] (ID NOW RAPID TESTING) 2022-05-26 05:05:00 Melody Villa [facility] CONSENT/REFUSAL FOR DIAGNOSIS AND TREATMENT 2022-05-26 03:55:22 Doctor Unassigned, [place] [facility] MEDICAL RELEASE/CLEARANCE FORMS 2022-05-22 05:01:00 Doctor Unassigned, [place] [facility] SLEEP STUDY DATA REPORT 2022-02-24 05:01:00 Doct or Unassigned, [place] [facility] EXTERNAL PROVIDER - ADC REFERRAL 2022-01-05 05:01:00 Doctor Unassigned, [place] [facility] INSURANCE CORRESPONDENCE 2022-01-03 05:01:00 Doc tor Unassigned, [place] [facility] Encounters Start Date/Time End Date/Time Encounter Type Admission Type Attending Clinicians Care Facility Care Department Encounter ID Source 2021-07-22 21:55:33 Emergency [facility] [id number] [facility] 2023-05-05 08:10:00 2023-05-06 16:43:00 Inpatient EL Davina Montenegro HCAPM INTE.02 [id number] [facility] 2023-05-05 22:35:00 2023-05-05 22:35:00 Outpatient Rios Montenegromaria del carmenrd HCACL LABO [id number] [facility] 2022-12-20 00:00:00 2022-12-20 00:00:00 Case Management HarjeetemilyElieraymond Sary [place] 1.2.840.114 350.1.13.10 4.2.7.2.686 [id number] [facility] 2022-12-11 00:00:00 2022-12-11 00:00:00 Case Management Gage Kuo SHIVA [place] 1.2.840.114 350.1.13.10 4.2.7.2.686 [id number] [facility] 2022-11-29 00:00:00 2022-11-29 00:00:00 Case Management Gage Kuo SHIVA [place] 1.2.840.114 350.1.13.10 4.2.7.2.686 [id number] [facility] 2022-10-10 10:00:00 2022-10-10 10:00:00 Outpatient LIZZ TODD [facility] [id number] [facility] 2022-10-06 00:00:00 2022-10-06 00:00:00 Orders Only Doctor Unassigned, [place] [facility] 1.2.840.114 350.1.13.10 4.2.7.2.686 [id number] [facility] 2022-07-24 00:00:00 2022-07-24 00:00:00 Outpatient DMG DM [id number] [facility] 2022-07-24 00:00:00 2022-07-24 00:00:00 Outpatient DMG DM [id number] [facility] 2022-07-24 00:00:00 2022-07-24 00:00:00 Outpatient DMG [facility] [id number] [facility] 2022-06-22 12:07:00 2022-06-22 14:53:00 Emergency X LUNA ORTEGA [facility] ERT [id number] [facility] 2022-06-22 00:00:00 2022-06-22 00:00:00 Outpatient DMG [facility] [id number] [facility] 2022-05-25 23:34:00 2022-05-26 03:42:00 Emergency X KASSYMELODY ZAMBRANO [facility] ERT [id number] [facility] 2022-05-25 23:34:00 2022-05-26 03:42:00 Emergency KassyedraquelMelody [facility] 1.2840.114 350.1.13.10 4.2.7.2.686 [id number] [facility] 2022-05-23 00:00:00 2022-05-23 00:00:00 Telephone Lizz Partida [facility]ESS[facility] 1.840.114 350.1.13.10 4.2.7.2.686 [id number] [facility] 2022-05-22 00:00:00 2022-05-22 00:00:00 Orders Only Doctor Unassigned, [place] [facility] 1.2840.114 350.1.13.10 4.2.7.2.686 [id number] [facility] 2022-03-11 19:30:00 2022-03-11 19:30:00 Outpatient R [facility] [id number] [facility] 2022-02-24 19:30:00 2022-02-24 22:00:00 Mechanical Engineering Draftsperson Visit 1, [facility] Sleep Lab Bed Juan Pablo Adams [facility] 1.2.840.114 350.1.13.10 4.2.7.2.686 [id number] [facility] 2022-02-24 19:30:00 2022-02-24 19:30:00 Outpatient R JUAN PABLO ADAMS STRAMSHaley [facility] [id number] [facility] 2022-02-24 00:00:00 2022-02-24 00:00:00 Orders Only Doctor Unassigned, [place] [facility] 1.2840.114 350.1.13.10 4.2.7.2.686 [id number] [facility] 2022-01-05 00:00:00 2022-01-05 00:00:00 Orders Only Doctor Unassigned, [place] [facility] 1.2.840.114 350.1.13.10 4.2.7.2.686 [id number] [facility] 2022-01-04 11:30:00 2022-01-04 11:45:00 Mechanical Engineering Draftsperson Visit 2, [facility]an [facility] 1.2.840.114 350.1.13.10 4.2.7.2.686 [id number] [facility] 2022-01-04 11:30:00 2022-01-04 11:30:00 [facility] [id number] 2022-01-04 10:40:00 2022-01-04 11:10:46 [facility] [id number] [facility] 2022-01-04 10:40:00 2022-01-04 11:10:46 Office Visit Lizz Partida [facility] 1.20.114 350.1.13.10 4.2.7.2.686 [id number] [facility] 2022-01-03 00:00:00 2022-01-03 00:00:00 Orders Only Doctor Unassigned, [place] [facility] 1.2840.114 350.1.13.10 4.2.7.2.686 [id number] [facility] 2021-12-29 14:29:19 2021-12-29 23:59:00 Outpatient R RADIOLOGY [facility] [id number] [facility] 2021-12-29 14:29:19 2021-12-29 23:59:00 Hospital Encounter Radiology [facility] 1.20.114 350.1.13.10 4.2.7.2.686 [id number] [facility] 2021-12-29 15:45:00 2021-12-29 16:00:00 Mechanical Engineering Draftsperson Visit Pob, Adc Lab Main Sherry Colindres [facility] 1.20.114 350.1.13.10 4.2.7.2.686 [id number] [facility] 2021-12-29 00:00:00 2021-12-29 00:00:00 Orders Only Doctor Unassigned, [place] [facility] 1.20.114 350.1.13.10 4.2.7.2.686 [id number] [facility] 2021-12-14 00:00:00 2021-12-14 00:00:00 Telephone Lizz Partida [facility] 1.20.114 350.1.13.10 4.2.7.2.686 [id number] [facility] 2021-12-05 00:00:00 2021-12-05 00:00:00 [facility]phone [facility] 1.2.840.114 350.1.13.10 4.2.7.2.686 [id number] [facility] 2021-11-29 00:00:00 2021-11-29 00:00:00 Orders Only Doctor Unassigned, [place] [facility] 1.2.840.114 350.1.13.10 4.2.7.2.686 [id number] [facility] 2021-11-22 15:20:00 2021-11-22 15:20:00 [facility] [id number] [facility] 2021-11-01 15:20:00 2021-11-01 15:20:00 [facility] [id number] [facility] 2021-01-26 00:00:00 2021-01-26 00:00:00 [facility] 1.2.840.114 350.1.13.10 4.2.7.2.686 [id number] [facility] 2021-01-25 11:00:00 2021-01-25 11:30:02 [facility] 1.2.840.114 350.1.13.10 4.2.7.2.686 [id number] [facility] 2021-01-25 11:00:00 2021-01-25 11:30:02 [facility] [id number] [facility] 2021-01-25 00:00:00 2021-01-25 00:00:00 [facility] 1.2.840.114 350.1.13.10 4.2.7.2.686 [id number] [facility] 2021-01-25 00:00:00 2021-01-25 00:00:00 [facility]phone [facility] 1.2.840.114 350.1.13.10 4.2.7.2.686 [id number] [facility] 2021-01-21 09:53:12 2021-01-21 10:08:12 Mechanical Engineering Draftsperson Visit 1, Adc Lab Jaquan [facility] 1.2.840.114 350.1.13.10 4.2.7.2.686 [id number] [facility] 2021-01-21 09:15:00 2021-01-21 09:15:00 [facility] [id number] [facility] 2021-01-21 00:00:00 2021-01-21 00:00:00 Orders Only Doctor Unassigned, [place] [facility] 1.2840.114 350.1.13.10 4.2.7.2.686 [id number] [facility] 2020-12-19 12:15:00 2020-12-19 12:15:00 Outpatient AMELIE HERBERT [facility] [id number] [facility] 2020-12-15 00:00:00 2020-12-15 00:00:00 [facility] 1.2840.114 350.1.13.10 4.2.7.2.686 [id number] [facility] 2020-11-21 13:20:00 2020-11-21 13:20:00 Outpatient AMELIE HERBERT [facility] [id number] [facility] 2020-08-25 12:40:43 2020-08-25 13:40:43 Mechanical Engineering Draftsperson Visit , [facility] Vascular Room 1 - Jaquan [facility] 1..840.114 350.1.13.10 4.2.7.2.686 [id number] [facility] 2020-08-25 13:00:00 2020-08-25 13:00:00 Outpatient R [facility] [id number] [facility] 2020-08-02 13:00:37 2020-08-02 13:33:57 Mechanical Engineering Draftsperson Visit , [facility] Vascular Room 1 - Jaquan [facility] 1.840.114 350.1.13.10 4.2.7.2.686 [id number] [facility] 2020-08-02 13:00:00 2020-08-02 13:00:00 Outpatient R [facility] [id number] [facility] 2020-07-28 11:12:44 2020-07-28 11:41:29 [facility] 1.[facility].114 350.1.13.10 4.2.7.2.686 [id number] [facility] 2020-07-28 11:00:00 2020-07-28 11:00:00 [facility] [id number] [facility] 2020-07-28 00:00:00 2020-07-28 00:00:00 Orders Only Doctor Unassigned, [place] [facility] 1.84.114 350.1.13.10 4.2.7.2.686 [id number] [facility] 2020-07-01 15:23:00 2020-07-01 18:58:00 Emergency Luna Ortega [facility] 1.2840.114 350.1.13.10 4.2.7.2.686 [id number] [facility] 2020-07-01 00:00:00 2020-07-01 00:00:00 Orders Only Doctor Unassigned, [place] [facility] 1.2.840.114 350.1.13.10 4.2.7.2.686 [id number] [facility] 2020-01-26 08:12:32 2020-01-26 11:46:48 Office Visit Jaquan [facility] Building 1.284.114 350.1.13.10 4.2.7.2.686 [id number] [facility] 2020-01-26 11:00:00 2020-01-26 11:00:00 [facility] [id number] [facility] 2019-11-27 09:04:11 2019-11-27 10:58:00 Office Visit Pankaj Stockton [facility] 1.284.114 350.1.13.10 4.2.7.2.686 [id number] [facility] 2019-11-27 09:15:00 2019-11-27 09:15:00 Outpatient R PANKAJ STOCKTON [facility] [id number] [facility] 2019-11-25 14:45:00 2019-11-25 14:45:00 Outpatient R PANKAJ STOCKTON [facility] [id number] [facility] 2019-10-29 00:00:00 2019-10-29 00:00:00 [facility] 1.2.840.114 350.1.13.10 4.2.7.2.686 [id number] [facility] 2019-10-28 10:11:05 2019-10-28 13:42:58 [facility] 1.2.840.114 350.1.13.10 4.2.7.2.686 [id number] [facility] 2019-10-28 11:36:47 2019-10-28 11:51:47 Mechanical Engineering Draftsperson Visit 2, [facility] 1.2.840.114 350.1.13.10 4.2.7.2.686 [id number] [facility] 2019-10-28 00:00:00 2019-10-28 00:00:00 Orders Only Doctor Unassigned, [place] [facility] 1.2.840.114 350.1.13.10 4.2.7.2.686 [id number] [facility] 2019-10-12 12:38:01 2019-10-12 13:31:00 Emergency Prachi Brody [facility] 1.2.840.114 350.1.13.10 4.2.7.2.686 [id number] [facility] 2019-06-06 13:43:38 2019-06-06 15:21:53 Office Visit Lizz Partida [facility] 1.2.840.114 350.1.13.10 4.2.7.2.686 [id number] [facility] 2019-05-22 13:15:27 2019-05-22 13:30:27 Office Visit Andres Barakat [facility] 1.2.840.114 350.1.13.10 4.2.7.2.686 [id number] [facility] 2019-05-09 19:57:00 2019-05-20 11:30:00 [facility] [id number] Karma eran 2019-05-06 05:07:00 2019-05-09 18:15:00 Hospital Encounter Andres Barakat [facility] 1..840.114 350.1.13.10 4.2.7.2.686 [id number] [facility] 2019-04-28 00:00:00 2019-04-28 00:00:00 Case Management Jodi Davenport [facility] 1..840.114 [id number] [facility] Results Test Description Test Time Test Comments Results Result Co mments Source GLUCOSE BEDSIDE [id number] 08:21:00* Test Item Value Reference Range Interpretation Comme nts GLUCOSE BEDSIDE TESTING (nimo t code = GLUBED) 93 mg/dL 70-110 N - XR CHEST 1 [id number] 07:09:00 [facility] 1950 Sex: M Name: JULIA FELIZ [facility] : 1950 Age/S: 73 / M [address] Unit #: [id number] Loc: [place] [address] Phys: Shu Gant MD Cardiology Acct: [id number] Dis Date: Status: ADM IN PHONE #: [phone] Exam Date: 05/06/2023 042 FAX #: Reason: Post implanted device EXAMS: CPT: [id number] XR CHEST 1 V 94984 Fluoro Time: DAP (Gy m2): Air Kerma (mGy): Location: H 77 EXAM: - XR CHEST 1 V DATE: 05/06/2023 10:31 AM HISTORY: Post implanted device COMPARISON: Chest x-ray 05/05/2023 FINDINGS: No airspace consolidation or pleural effusions. No pneumothorax. Stable enlargement of the cardiac silhouette. Stable position of the single lead left-sided pacemaker. IMPRESSION: No acute cardiopulmonary abnormality. at 0709 Reported and signed by: Alethea Ruiz M.D. CC: Sherry Colindres DO; Shu Castaneda Cardiology Stalin CREWS; Davina Montenegro MD PAGE 1 Signed Report Name: JULIA FELIZ [facility] : 1950 Age/S: 73 / M [address] Unit #: [id number] Loc: [place] [address] Phys: Shu Gant Cardiology Acct: [id number] Dis Date: Status: ADM IN PHONE #: [phone] Exam Date: 05/06/2023 0423 FAX #: Reason: Post implanted device EXAMS: CPT: [id number] XR CHEST 1 V 14873 Fluoro Time: DAP (Gy m2): Air Kerma (mGy): (Continued) Technologist: Yessica Santana Trnlab Date/Time: 05/06/2023 (04 01) tJEANNIE Orig Print D/T: S: 05/06/2023 (711) PAGE 2 Signed ReportBASIC METABOLIC [id number] 06:01:00* Test Item Value Reference Range Interpretation [...] CA) 9.0 MG/DL 8.5-10.1 N CBC W/AUTO [id number] 05:48:00* Test Item Value Reference Range Interpretation [...] = MDIFF) NO DIFF/SCN CRITERIA GLUCOSE BEDSIDE [id number] 19:59:00* Test Item Value Reference Range Interpretation Comme nts GLUCOSE BEDSIDE TESTING (niom t code = GLUBED) 208 mg/dL 70-110 H - XR CHEST 1 [id number] 11:05:00 [facility] 1950 Sex: M Name: JULIA FELIZ [facility] : 1950 Age/S: 73 / M [address] Unit #: [id number] Loc: [place] [address] Phys: Shu Gant MD Cardiology Acct: [id number] Dis Date: Status: ADM IN PHONE #: [phone] Exam Date: 05/05/2023 1054 FAX #: Reason: Post implanted device EXAMS: CPT:[id number] XR CHEST 1 V 29191 Fluoro Time: DAP (Gy m2): Air Kerma [...] PAGE 1 Signed Report Name: JULIA FELIZ [place] : 1950 Age/S: 73 / M [address] Unit #: [id number] Loc: [place] [address] Phys: Shu Gant MD Cardiology Acct: [id number] Dis Date: Status: ADM IN PHONE #: [phone] Exam Date: 05/05/2023 1058 FAX #: Reason: Post implanted device EXAMS: CPT: [id number] XR CHEST 1 V 19114 Fluoro Time: DAP (Gy m2): Air Kerma (mGy): (Continued) Technologist:RT Frank(R) Trnscb Date/Time: 05/05/2023 (1105) [id number] Orig Print D/T: S: 05/05/2023 (1108) PAGE 2 Signed ReportCOMPREHENSIVE METABOLIC [id number] 09:30:00* Test Item Value Reference Range Interpretation [...] = LDL) 73 MG/DL 0-129 N <100 CPVYHYN32 0 - 129 NEAR OPTIMAL/ABOVE [id number] - 159 [id number] - 189 HIGH>OR= 190 VERY HIGHNOTE THAT GUIDELINES ARE PROVIDED BY NATIONAL CHOLESTEROLEDUCATION PROGRAM ADULT TREATMENT PANEL III LDL/HDL (test code = LDL/HDL) 1.78 Ratio See_Comment N [Automated messa ge] The system which generated this result transmitted reference range: 1.48-3.22 Avg. The reference range was not used to interpret this result as normal/abnormal. [id number] 09:30:00* Test Item Value Reference Range Interpretation Comme nts MAGNESIUM (test code = MAG) 2.1 MG/DL 1.8-2.4 N PROTHROMBIN [id number] 09:14:00* Test Item Value Reference Range Interpretation [...] Infarction (to prevent recurrent infarct). CBC W/AUTO [id number] 09:13:00* Test Item Value Reference Range Interpretation [...] Notes Date/Time Note Provider Source 2023-05-06 15:18:00 [facility] Hospitalist Discharge Summary REPORT#:[id number] REPORT STATUS: Signed DATE:05/06/23 TIME:1518 PATIENT: JULIA FELIZ UNIT #: [id number] ROOM/BED: [place] [address] : [birth year] AGE: 73 SEX: M ATTEND: [...] 05/06 0813 O2 Delivery Room air 05/06 0813 24 hour I O ending at 0700: [...] edema, no cyanosis Musculoskeletal: normal muscle mass Neuro/SOCCER REFEREE: alert, oriented X 3, normal speech Skin: dry, intact, normal color, normal temperature, no rash Psychiatry: normal affect Discharge Instructions PCP PCP follow-up: PCP: Sherry Colindres DO Additional Discharge Routines: None at 1521 RPT #: [id number] END OF REPORT [facility] 2023-05-06 10:46:00 [id number] [facility] [id number] [place] [address] PATIENT NAME: JULIA FELIZ ADMIT DATE: 05/05/23 ACCOUNT NO: [id number] ROOM NO: [facility] AGE: 73 REPORT TYPE: eELECTROCARDIOGRAM SEX: M ADMITTING PHYSICIAN: Davina Montenegro MD ATTENDING PHYSICIAN: Davina Montenegro MD Order: [id number] Test Reason : CP Test Date/Time Stamp: [place] May 06 2023 10:46:42 Blood Pressure : [...] By: Davina Montenegro Confirmed by:SHU GANT at 3368 PATIENT NAME: JULIA FELIZ [facility] 2023-05-05 22:46:00 [facility] ([facility]) Hospitalist History Physical REPORT#:[id number] REPORT STATUS: Signed DATE:05/05/23 TIME:2245 PATIENT: JULIA FELIZ UNIT #: [id number] ROOM/BED: [place] [address] : [birth year] AGE: 73 SEX: M ATTEND: [...] 05/06 0001 62 14 151/103 123 93 05/05 2352 94 Room air 21 05/05 2337 36.8 05/05 2301 65 23 168/82 116 94 05/05 2201 60 21 180/81 117 92 05/05 2100 61 19 171/81 117 94 05/05 2000 60 19 159/74 107 95 08/12 [...] 1100 60 14 138/73 100 Room air 08/ 1045 36.2 60 18 154/77 92 Room air / 0846 36.6 58 15 171/86 98 Room air 24 hour I O ending at 0700: 08/13 0700 /12 1900 Intake Total 400 600 Output Total [...] edema, no cyanosis Musculoskeletal: normal muscle mass Neuro/SOCCER REFEREE: alert, oriented X 3, normal speech Skin: [...] meds at discharge at 0847 RPT #: [id number] END OF REPORT [facility] 2023-05-05 11:03:[address] [address] PATIENT NAME: JULIA FELIZ ADMIT DATE: 05/05/23 ACCOUNT NO: [id number] ROOM NO: [facility] AGE: 73 REPORT TYPE: eELECTROCARDIOGRAM SEX: M ADMITTING PHYSICIAN: Davina Montenegro MD ATTENDING PHYSICIAN: Davina Montenegro MD Order: [id number] Test Reason : Post insertion procedure Test Date/Time Stamp: [facility] May 05 2023 11:03:53 Blood Pressure [...] GANT at 1206 PATIENT NAME: JULIA FELIZ [facility] 2023-05-05 11:02:[address] [address] PATIENT NAME: JULIA FELIZ ADMIT DATE: 05/05/23 ACCOUNT NO: [id number] [facility]: 73 REPORT TYPE: eELECTROCARDIOGRAM SEX: M ADMITTING PHYSICIAN: Davina Montenegro MD ATTENDING PHYSICIAN: Davina Montenegro MD Order: [id number] Test Reason : Post insertion procedure Test Date/Time Stamp: SunMay 05 2023 11:02:14 Blood Pressure : / [...] GANT at 1205 PATIENT NAME: JULIA FELIZ [facility] 2023-05-05 10:26:00 [facility] [id number] [place] [address] PATIENT NAME: JULIA FELIZ ADMIT DATE: 05/05/23 ACCOUNT NO: [id number] ROOM NO: [facility] AGE: 73 REPORT TYPE: CARDIAC CATHETERIZATION REPORT [...] Date Transcribed: 05/05/2023 12:07:05 IVAN/CLAUDIA Receipt ID: [id number] Authenticated by Shu Gant MD On 05/05/2023 12:11:53 PM at 1211 PATIENT NAME: JULIA FELIZ [facility] 2023-05-05 10:24:00 [id number] [address] PATIENT NAME: JULIA FELIZ ADMIT DATE: 05/05/23 ACCOUNT NO: [id number] ROOM NO: [facility] AGE: 73 REPORT TYPE: OPERATIVE REPORT SEX: M ADMITTING PHYSICIAN: Davina Montenegro MD ATTENDING PHYSICIAN: Davina Montenegro MD OPERATION DATE: 05/05/2023 POUNDMASTER: Shu Gant MD. INDICATION FOR THE PROCEDURE: [...] Date Transcribed: 05/05/2023 11:52:59 IVAN/MAUREEN Receipt ID: [id number] Authenticated by Shu Gant MD On 05/05/2023 12:09:10 PM at 1209 PATIENT NAME: JULIA FELIZ [facility] 2023-05-05 08:48:[address] [address] PATIENT NAME: JULIA FELIZ ADMIT DATE: 05/05/23 ACCOUNT NO: [id number] ROOM NO: AGE: 73 REPORT TYPE: eELECTROCARDIOGRAM SEX: M ADMITTING PHYSICIAN: ATTENDING PHYSICIAN: Shu Gant MD Order: [id number] Test Reason : CAD Test Date/Time Stamp: [...] GANT at 0933 PATIENT NAME: JULIA FELIZ [facility] 2023-05-04 07:58:00 [id number] [address] PATIENT NAME: JULIA FELIZ ADMIT DATE: ACCOUNT NO: [id number] ROOM NO: AGE: 73 REPORT TYPE: HISTORY AND PHYSICAL SEX: M ADMITTING PHYSICIAN: ATTENDING PHYSICIAN: Shu Gant MD Cardiology PATIENT NAME: JULIA FELIZ ADMIT DATE:05/05/2023 ADMISSION DATE: 05/05/2023 11:00:00 POUNDMASTER: Shu Gant MD. HISTORY OF PRESENT ILLNESS: [...] Date Transcribed: 05/04/2023 11:31:10 IVAN/MAUREEN Receipt ID: [id number] Authenticated and Edited by Shu Gant MD On 05/04/23 5:37:04 PM at 0539 PATIENT NAME: JULIA FELIZ [facility]
[2024-07-29 15:31] LABS: Absolute Eosinophils 0.2 K/uL (0-0.5); Absolute Lymphocytes (CBC) 0.9 K/uL (0.7-4.9); Absolute Monocytes 0.5 K/uL (0.1-1.3); Absolute Neutrophil 6.2 K/uL (1.8-8.0); Basophils % 0.4 % (0-1.3); Eosinophils % 2.8 % (0-4.4); Hematocrit 32.3 % (39.6-49.0); Hemoglobin 10.4 g/dL (13.6-17.9); Lymphocytes % 11.9 % (15.3-44.8); MCHC 32.3 g/dL (32.0-36.0); MCV 96.1 fL (80-100); MPV 7.7 fL (7.6-11.3); Monocytes % 6.4 % (3.3-12.3); Neutrophils % 78.5 % (41.7-73.7); Platelets 243 thou/uL (152-406); RBC Red Blood Cell Count 3.36 M/uL (4.33-5.43)
[2024-07-29 15:52] LABS: AST/SGOT 15 U/L (15-37); Albumin 3.7 g/dL (3.4-5.0); Albumin/Globulin Ratio 0.9 (1.1-1.8); Alkaline Phosphatase 90 U/L (45-117); Anion Gap 9.4 mEq/L (5.0-15.0); BUN Blood Urea Nitrogen 19 mg/dL (7-18); Bicarbonate 30 mEq/L (21-32); Bilirubin Direct 0.2 mg/dL (0-0.2); Bilirubin Indirect, Calculated 0.5 mg/dL (0.2-0.8); Bilirubin Total 0.7 mg/dL (0.2-1.0); Glomerular Filtration Rate 40 ml/min (=/>90); Glucose Level 102 mg/dL (74-106); NT PRO-BNP 14823 pg/mL (<125); Potassium 3.4 mEq/L (3.5-5.1); Protein, Total 7.7 g/dL (6.4-8.2); Sodium Level 142 mEq/L (136-145); Troponin High Sensitivity 21.3 pg/mL (<58.9)
--- NOTE | 2024-07-29 15:54 | RAD REPORT ---
EXAMINATION: ONE VIEW CHEST XR CLINICAL INDICATION: DYSPNEA TECHNIQUE: Frontal chest projection is submitted. Examination is limited by patient positioning and t echnique. COMPARISON: 06/16/2024 FINDINGS: Moderate bilateral pulmonary opacities likely representing pulmonary edema or pneumonia. The heart is moderately enlarged in size. Single-lead pacer device noted. Trace pleural effusions. Sternotomy. IMPRESSION: Moderate CHF.
[2024-07-29 15:56] LABS: ALT/SGPT < 14 U/L (16-61)
[2024-07-29] MEDS ORDERED: FUROSEMIDE 40 MG/4 ML VIAL ONE (16:08)
--- NOTE | 2024-07-29 16:15 | ER ---
Nurse's Notes [facility] Name: Devon Feliz Age: 74 yrs Sex: Male : 1950 Arrival Date: 07/29/2024 Time: 14:51 Bed 3 Private MD: Diagnosis: Pulmonary edema Presentation: 07/29 15:04 Chief complaint: Patient states: sob x1 week, worsening over the week. Coronavirus tm6 screen: Client denies travel out of the [place] in the last 14 days. Ebola Screen: Patient negative for fever greater than or equal to 101.5 degrees Fahrenheit, and additional compatible Ebola Virus Disease symptoms Patient denies exposure to infectious person. Patient denies travel to an Ebola-affected area in the 21 days before illness onset. No symptoms or risks identified at this time. Initial Sepsis Screen: Does the patient meet any 2 criteria? No. Patient's initial sepsis screen is negative. Does the patient have a suspected source of infection? No. Patient's initial sepsis screen is negative. Risk Assessment: Do you want to hurt yourself or someone else? Patient reports no desire to harm self or others. Onset of symptoms was July 22, 2024. 15:04 Method Of Arrival: Wheelchair tm6 15:04 Acuity: LILLI 3 tm6 Triage Assessment: 15:06 General: Appears in no apparent distress. Behavior is calm, cooperative. Pain: Denies tm6 pain. EENT: No signs and/or symptoms were reported regarding the EENT system. Neuro: Level of Consciousness is awake, alert, obeys commands, Oriented to person, place, time, situation. Cardiovascular: Patient's skin is warm and dry. Respiratory: Reports shortness of breath since one week ago Onset: The symptoms/episode began/occurred one week ago, the patient has mild shortness of breath. GI: No signs and/or symptoms were reported involving the gastrointestinal system. Abdomen is round non-distended. : No signs and/or symptoms were reported regarding the genitourinary system. Derm: No signs and/or symptoms reported regarding the dermatologic system. Musculoskeletal: No signs and/or symptoms reported regarding the musculoskeletal system. Historical: - Allergies: 15:06 No Known Allergies; tm6 - PMHx: 15:06 diabetes mellitus; Hypertensive disorder; kidney problems; tm6 - PSHx: 15:06 Coronary artery bypass graft; pacemaker (Coronary artery bypass graft); abscess removed tm6 (Coronary artery bypass graft); - Immunization history:: Client reports receiving the 2nd dose of the Covid vaccine. - Infectious Disease History:: Denies. - Social history:: Smoking status: Patient denies any tobacco usage or history of. Patient/guardian denies using alcohol. - Family history:: not pertinent. Screenin:26 [facility] ED Fall Risk Assessment (Adult) History of falling in the last 3 months, ko1 including since admission No falls in past 3 months (0 pts) Confusion or Disorientation No (0 pts) Intoxicated or Sedated No (0 pts) Impaired Gait No (0 pts) Mobility Assist Device Used No (0 pt) Altered Elimination No (0 pt) Score/Fall Risk Level 0 - 2 = Low Risk Oriented to surroundings, Maintained a safe environment, Educated pt \T\ family on fall prevention, incl call for assistance when getting out of bed, Assessed \T\ reinforced patient's understanding of fall precautions, Hourly rounding (assess needs \T\ fall precautionary measures) done. Abuse screen: Denies threats or abuse. Denies injuries from another. Nutritional screening: No deficits noted. Tuberculosis screening: No symptoms or risk factors identified. Assessment: 15:26 General: Appears in no apparent distress. Behavior is calm, cooperative, appropriate ko1 for age. Pain: Denies pain. Neuro: No deficits noted. Cardiovascular: Rhythm is regular. Respiratory: Airway is patent Respiratory effort is even, labored, Breath sounds are diminished bilaterally. GI: No deficits noted. : No deficits noted. EENT: No deficits noted. Derm: No deficits noted. Musculoskeletal: No deficits noted. Vital Signs: 15:04 BP 162 / 95; Pulse 62; Resp 19; Temp 97.9(O); Pulse Ox 100% on R/A; MAP 113 mmHg; tm6 Weight 99.79 kg; Height 6 ft. 0 in. ; Pain 0/10; 15:39 BP 181 / 90; Pulse 67; Resp 18; Pulse Ox 96% on R/A; ph 15:04 Body Mass Index 29.84 (99.79 kg, 182.88 cm) 6 15:04 Pain Scale: Adult [email or web address] ED Course: 14:52 Patient arrived in ED. mr 14:53 Juan Daniel Conklin MD is Attending Physician. rt 15:05 Triage completed. tm6 15:06 Arm band placed on right wrist. tm6 15:24 Eva Darling, RN is Primary Nurse. ko1 15:24 Basic Metabolic Panel Sent. ko1 15:24 CBC with Diff Sent. ko1 15:24 LFT's Sent. ko1 15:24 NT PRO-BNP Sent. ko1 15:24 Troponin HS Sent. ko1 15:26 Patient has correct armband on for positive identification. Bed in low position. Call ko1 light in reach. Side rails up X 1. Provided Education on: labs, meds. Client placed on continuous cardiac and pulse oximetry monitoring. NIBP monitoring applied. monitoring analyst on. Door closed. Noise minimized. Lights dimmed. Warm blanket given. Pillow given. 15:26 No provider procedures requiring assistance completed. Initial lab(s) drawn, by me, ko1 sent to lab. EKG done, by ED staff, reviewed by Juan Daniel Conklin MD. Inserted saline lock: 22 gauge in right antecubital area, using aseptic technique. Blood collected. Flushed with 10 mL NS. 15:43 XRAY Chest (1 view) In Process Unspecified. EDMS 16:15 Gregory Dumont MD is Hospitalizing Provider. rt 17:34 1734 CM met with and his Jennifer at the bedside in the ED exam room. ane Patient identified by name and . Demographic sheet confirmed. Patient states he lives with his in a ground floor apartment and are in the process of moving apartments. Prior to admission, he states he performs ADLs independently. with use of a cane to ambulate. DME in the home includes a CPAP, walker and a monitor for his pacemaker. Patient has wound care HH through [facility] for a wound on his back from a cyst removal. PCP is Dr. Hernandez. No MPOA in place. No home oxygen at this time. Patient states he gets his wound checked at [facility]. His plan is to return home upon discharge, continue with HH and wound care. Jennifer states she will transport home. CM team will continue to follow and coordinate care. Administered Medications: 16:00 Drug: Furosemide IVP 40 mg IVP once; give over 2 minutes Route: IVP; Site: right ko1 antecubital; 16:15 Follow up: Response: No adverse reaction ko1 Medication: 15:26 VIS not applicable for this client. ko1 Output: 16:27 Urine: 300ml (Voided); Total: 300ml. ko1 17:24 Urine: 450ml (Voided); Total: 750ml. ko1 Outcome: 16:15 Decision to Hospitalize by Provider. rt 19:35 Patient left the ED. rv1 Signatures: Dispatcher [employer] EDIL Lexie Omalley, Reg Reg mr Jaquelin Elizondo, RN RN ph Eva Darling RN RN ko1 Juan Daniel Conklin MD MD rt Danyelle Kraft rv1 Gentry Anand RN RN tm6 Alejandra Lay RN RN mario
--- NOTE | 2024-07-29 16:15 | EDPHYS ---
Physician Documentation [facility] Name: Devon Feliz Age: 74 yrs Sex: Male : 1950 Arrival Date: 07/29/2024 Time: 14:51 Bed 3 Private MD: ED Physician Juan Daniel Conklin HPI: 07/29 15:40 This 74 yrs old Male presents to ER via Wheelchair with complaints of Shortness Of rt Breath. 15:40 Patient presents to the ED with shortness of breath. Patient states the symptoms have rt been progressively worsening for the past week. Is worse when he walks, lies down flat. Does report bilateral extremity edema. Denies other acute complaints at this time, symptoms are moderate in severity, no other aggravating or alleviating factors.. Historical: - Allergies: 15:06 No Known Allergies; tm6 - PMHx: 15:06 diabetes mellitus; Hypertensive disorder; kidney problems; tm6 - PSHx: 15:06 Coronary artery bypass graft; pacemaker (Coronary artery bypass graft); abscess removed tm6 (Coronary artery bypass graft); - Immunization history:: Client reports receiving the 2nd dose of the Covid vaccine. - Infectious Disease History:: Denies. - Social history:: Smoking status: Patient denies any tobacco usage or history of. Patient/guardian denies using alcohol. - Family history:: not pertinent. ROS: 15:40 Constitutional: Negative for fever, chills, and weight loss, Abdomen/GI: Negative for rt abdominal pain, nausea, vomiting, diarrhea, and constipation, Back: Negative for injury and pain, 15:40 Cardiovascular: Positive for edema, Negative for chest pain, 15:40 Respiratory: Positive for cough, shortness of breath, Exam: 15:40 Constitutional: This is a well developed, well nourished patient who is awake, alert, rt and in no acute distress. Chest/axilla: Normal chest wall appearance and motion. Nontender with no deformity. No lesions are appreciated. Cardiovascular: Regular rate and rhythm with a normal S1 and S2. No gallops, murmurs, or rubs. Normal PMI, no JVD. No pulse deficits. Abdomen/GI: Soft, non-tender, with normal bowel sounds. No distension or tympany. No guarding or rebound. No evidence of tenderness throughout. Skin: Warm, dry with normal turgor. Normal color with no rashes, no lesions, and no evidence of cellulitis. Neuro: Awake and alert, GCS 15, oriented to person, place, time, and situation. Cranial nerves II-XII grossly intact. Motor strength 5/5 in all extremities. Sensory grossly intact. Cerebellar exam normal. Normal gait. 15:40 ECG was reviewed by the Attending Physician. 15:40 Respiratory: Bibasilar crackles, no respiratory distress, 15:40 Musculoskeletal/extremity: 2+, bilateral lower extremity edema, symmetric. Vital Signs: 15:04 BP 162 / 95; Pulse 62; Resp 19; Temp 97.9(O); Pulse Ox 100% on R/A; MAP 113 mmHg; tm6 Weight 99.79 kg; Height 6 ft. 0 in. ; Pain 0/10; 15:39 BP 181 / 90; Pulse 67; Resp 18; Pulse Ox 96% on R/A; ph 15:04 Body Mass Index 29.84 (99.79 kg, 182.88 cm) tm6 15:04 Pain Scale: Adult tm6 MDM: 15:02 Medical Screening Exam initiated rt 17:41 Differential diagnosis: CHF, pneumonia, bronchospasm. Data reviewed: vital signs, rt nurses notes, lab test result(s), EKG, radiologic studies. Consideration of Admission/Observation Patient was admitted/placed on observation. Management of patient was discussed with the following: Hospitalist: Agrees to admit. I considered the following discharge prescriptions or medication management in the emergency department Medications were administered in the Emergency Department. See MAR. Independent interpretation of the following test(s) in the Emergency Department X-Ray: My interpretation is Pulmonary edema seen on interpretation of x-ray images. Care significantly affected by the following chronic conditions: Diabetes, Hypertension. Counseling: I had a detailed discussion with the patient and/or guardian regarding the historical points, exam findings, and any diagnostic results supporting the discharge/admit diagnosis, lab results, radiology results, the need for further work-up and treatment in the hospital. Response to treatment: There is no appreciated change of the patient's symptoms at this time. 07/29 15:11 Order name: Basic Metabolic Panel; Complete Time: 16:05 rt 07/29 15:11 Order name: CBC with Diff; Complete Time: 15:56 rt 07/29 15:11 Order name: LFT's; Complete Time: 16:05 rt 07/29 15:11 Order name: NT PRO-BNP; Complete Time: 16:05 rt 07/29 15:11 Order name: Troponin HS; Complete Time: 16:05 rt 07/29 15:11 Order name: XRAY Chest (1 view); Complete Time: 15:56 rt 07/29 15:11 Order name: Cardiac monitoring; Complete Time: 15:12 rt 07/29 15:11 Order name: EKG - Nurse/Tech; Complete Time: 15:38 rt 07/29 15:11 Order name: IV Saline Lock; Complete Time: 15:24 rt 07/29 15:11 Order name: Labs collected and sent; Complete Time: 15:24 rt 07/29 15:11 Order name: O2 Per Protocol; Complete Time: 15:12 rt 07/29 15:11 Order name: O2 Sat Monitoring; Complete Time: 15:12 rt EC:40 Rate is 70 beats/min. Rhythm is irregularly irregular, A fib with Occasional PVCs. QRS rt [place] is Normal. QRS interval is normal. QT interval is normal. No Q waves. No ST changes noted. Interpreted by me. Administered Medications: 16:00 Drug: Furosemide IVP 40 mg IVP once; give over 2 minutes Route: IVP; Site: right ko1 antecubital; 16:15 Follow up: Response: No adverse reaction ko1 Disposition Summary: 07/29/24 16:15 Hospitalization Ordered Notes: Hospitalization Status: Observation rt Provider: Gregory Dumont rt Location: Telemetry/MedSurg (observation) rt Condition: Stable rt Problem: new rt Symptoms: are unchanged rt Bed/Room Type: Standard rt Room Assignment: 404(07/29/24 17:05) bd Diagnosis - Pulmonary edema rt Forms: - Medication Reconciliation Form rt - SBAR form rt - Leadership Thank You Letter rt Signatures: Dispatcher [employer] Shell Khoury Kathy, RN RN ko1 Juan Daniel Conklin MD MD rt Gentry Anand RN RN tm6 Corrections: (The following items were deleted from the chart) 17:05 16:15 rt bd
--- NOTE | 2024-07-29 16:55 | P.HP ---
Certification for Inpatient Patient admitted to: Inpatient With expected LOS: >2 Midnights Patient will require the following post-hospital care: None Practitioner: I am a practitioner with admitting privileges, knowledge of patient current condition, hospital course, and medical plan of care. Services: Services provided to patient in accordance with Admission requirements found in Title 42 Section 412.3 of the Code of Federal Regulations Patient History Date of Service: 07/29/24 Reason for admission: CHF exacerbation History of Present Illness: 74-year-old male with history of diabetes mellitus type 2, hypertension, CKD, CAD with previous CABG, pacemaker in place, chronic diastolic congestive heart failure, atrial fibrillation on chronic anticoagulation presents the emergency department with 1 week of worsening dyspnea on exertion, orthopnea, lower extremity edema. He was here at the end of May and at that time he was taken off of the amiloride and ramipril as he was in for an acute kidney injury. He has been doing well until the last 1 week when he had the symptoms. He was evaluated in the emergency department his labs are significant for a BNP of 14,823 creatinine 1.8 which is near baseline initial high-sensitivity troponin 21.3 chest x-ray showing moderate CHF pattern. ED provider wishes to admit patient for further evaluation and management of CHF exacerbation Allergies No Known Drug Allergies Allergy (Verified 06/16/24 14:30) Unknown Home Medications: Acetaminophen [8Hr Arthritis Pain Relief] 650 mg PO TIDP PRN 03/29/23 Acetaminophen with Codeine [Acetaminophen-Cod #3 Tablet] 1 each PO BIDP PRN 03/29/23 Allopurinol 300 mg PO DAILY 03/29/23 Apixaban [Eliquis *] 2.5 mg PO BID 03/29/23 Aspirin [Low Dose Aspirin EC] 81 mg PO DAILY 03/29/23 Atorvastatin Calcium [Lipitor] 40 mg PO BEDTIME 03/29/23 Cholecalciferol (Vitamin D3) [Vitamin D3] 25 mcg PO DAILY 03/29/23 Cider Vinegar [Apple Cider Vinegar] 1 tab PO BID 03/29/23 Docusate Sodium [Stool Softener] 250 mg PO BEDTIME 03/29/23 Doxazosin [Cardura*] 2 mg PO DAILY 03/29/23 Dulaglutide [Trulicity] 1.5 mg SQ EVERY 7TH DAY 03/29/23 Ferrous Sulfate [Ferrous Sulfate*] 325 mg PO BIDWM 03/29/23 Fluticasone [Flonase 50MCG Nasal [place]*] 1 spray NS DAILY 03/29/23 Furosemide [Lasix*] 20 mg PO DAILY 03/29/23 Isosorbide Mononitrate [Isosorbide Mononitrate ER] 30 mg PO DAILY 03/29/23 Metformin ER [Glucophage ER*] 500 mg PO DAILY 03/29/23 Multivitamin with Minerals [Multivitamins with Minerals] 1 each PO DAILY 03/29/23 Trazodone HCl 50 mg PO BEDTIME 03/29/23 Cinnamon Bark/Chromium Picolin [Cinnamon Plus Chromium Capsule] 1 each PO BID 06/16/24 Escitalopram Oxalate [Lexapro] 5 mg PO DAILY 06/16/24 Linagliptin [Tradjenta] 5 mg PO BEDTIME 06/16/24 Magnesium Oxide [Magnesium] 400 mg PO BID 06/16/24 Melatonin 10 mg PO BEDTIME PRN PRN 06/16/24 Metoprolol Tartrate [Lopressor*] 50 mg PO BID 06/16/24 [place]-3 Fatty Acids [[place]-3] 1 cap PO BID 06/16/24 Omeprazole [Prilosec] 40 mg PO NOON 06/16/24 Mupirocin Oint [Bactroban 2% Ointment*] 1 espinoza TOP DAILY 06/17/24 Nystatin 1 espinoza TOP BIDP PRN 06/17/24 Doxycycline Hyclate 100 mg PO BID 7 Days #14 tab 06/19/24 Hydrocodone 5/APAP 325 [[place] 5/325*] 1 tab PO Q4H PRN 3 Days #18 tab 06/19/24 - Past Medical/Surgical History Diabetic: Yes -: Diastolic CHF -: HTN -: HLD -: CKD III (Dr. Hernandez/ [place]) -: Nephrolithiasis -: GERD -: Stroke 2006 -: O[place] -: A-fib -: triple bypass -: precancerous mole removal from back. -: pacemaker Psychosocial/ Personal History: Lives at home with family - Family History Mother -: Hypertension, Other (see notes) Notes: from brain tumors - Social History Alcohol use: No CD- Drugs: No Caffeine use: Yes Review of Systems 10-point ROS is otherwise unremarkable Respiratory: Shortness of Breath, SOB with Excertion Cardiovascular: Chest Pain, Orthopnea Physical Examination - Physical Exam General: Alert, In no apparent distress, Oriented x3 HEENT: Atraumatic, PERRLA, EOMI Neck: Supple, 2+ carotid pulse no bruit, No LAD Respiratory: Diminished, Crackles/rales Cardiovascular: Regular rate/rhythm, Normal S1 S2, Edema (2+ pitting edema bilateral lower extremities) Gastrointestinal: Normal bowel sounds Musculoskeletal: No tenderness Integumentary: No rashes Neurological: Normal speech, Normal strength at 5/5 x4 extr, Normal tone, Normal affect - Studies Laboratory Data (last 24 hrs) 07/29/24 07/29/24 15:20 15:20 WBC 7.90 Hgb 10.4 L Hct 32.3 L Plt Count 243 Sodium 142 Potassium 3.4 L BUN 19 H Creatinine 1.80 H Glucose 102 Total Bilirubin 0.7 AST 15 ALT < 14 L Alkaline Phosphatase 90 Assessment and Plan - Plan Assessment: Acute on chronic diastolic congestive heart failure Chest pain rule out ACS Atrial fibrillation on chronic anticoagulation/pacemaker in place CKD 3 Diabetes mellitus type 2 Hypertension Hyperlipidemia History of CVA Plan: Acute on chronic diastolic congestive heart failure Chest pain rule out ACS Atrial fibrillation on chronic anticoagulation/pacemaker in place Cardiology, nephrology consult Echocardiogram ordered Takes Lasix 20 mg daily at home Increase Lasix to 40 mg IV twice daily for now Trend troponins and monitor on telemetry CKD 3 Monitor renal function closely with diuresis Nephrology consulted Near baseline on admission Diabetes mellitus type 2 ACHS Accu-Chek, sliding scale insulin Hypertension Hyperlipidemia History of CVA Continue home medications DVT PPX: Continue Eliquis Code status: Full Discharge Plan: Home Plan to discharge in: 48 Hours - Advance Directives Does patient have a Living Will: No Does patient have a Durable POA for Healthcare: No - Code Status/Comfort Care Code Status Assessed: Yes (Full code) Critical Care: No Time Spent Managing Pts Care (In Minutes): 67
--- NOTE | 2024-07-29 21:27 | P.CNS ---
Date of Consult: 07/29/24 Reason for Consult: DAVIN/ CKD Requesting Physician: Gregory Dumont Chief Complaint: CHF exacerbation History of Present Illness: 74-year-old male with history of diabetes mellitus type 2, hypertension, CKD, CAD with previous CABG, pacemaker in place, chronic diastolic congestive heart failure, atrial fibrillation on chronic anticoagulation presents the emergency department with 1 week of worsening dyspnea on exertion, orthopnea, lower extremity edema. He was here at the end of May and at that time he was taken off of the amiloride and ramipril as he was in for an acute kidney injury. He has been doing well until the last 1 week when he had the symptoms. He was evaluated in the emergency department his labs are significant for a BNP of 14,823 creatinine 1.8 which is near baseline initial high-sensitivity troponin 21.3 chest x-ray showing moderate CHF pattern. ED provider wishes to admit patient for further evaluation and management of CHF exacerbation [id number] 15:40 This 74 yrs old Male presents to ER via Wheelchair with complaints of Shortness Of rt Breath. 15:40 Patient presents to the ED with shortness of breath. Patient states the symptoms have rt been progressively worsening for the past week. Is worse when he walks, lies down flat. Does report bilateral extremity edema. Denies other acute complaints at this time, symptoms are moderate in severity, no other aggravating or alleviating factors.. Allergies No Known Drug Allergies Allergy (Verified 06/16/24 14:30) Unknown Home medications list reviewed: Yes Home Medications: Acetaminophen [8Hr Arthritis Pain Relief] 650 mg PO TIDP PRN 03/29/23 Acetaminophen with Codeine [Acetaminophen-Cod #3 Tablet] 1 each PO BIDP PRN 03/29/23 Allopurinol 300 mg PO DAILY 03/29/23 Apixaban [Eliquis *] 2.5 mg PO BID 03/29/23 Aspirin [Low Dose Aspirin EC] 81 mg PO DAILY 03/29/23 Atorvastatin Calcium [Lipitor] 40 mg PO BEDTIME 03/29/23 Cholecalciferol (Vitamin D3) [Vitamin D3] 25 mcg PO DAILY 03/29/23 Cider Vinegar [Apple Cider Vinegar] 1 tab PO BID 03/29/23 Docusate Sodium [Stool Softener] 250 mg PO BEDTIME 03/29/23 Doxazosin [Cardura*] 2 mg PO DAILY 03/29/23 Dulaglutide [Trulicity] 1.5 mg SQ EVERY 7TH DAY 03/29/23 Ferrous Sulfate [Ferrous Sulfate*] 325 mg PO BIDWM 03/29/23 Fluticasone [Flonase 50MCG Nasal [place]*] 1 spray NS DAILY 03/29/23 Furosemide [Lasix*] 20 mg PO DAILY 03/29/23 Isosorbide Mononitrate [Isosorbide Mononitrate ER] 30 mg PO DAILY 03/29/23 Metformin ER [Glucophage ER*] 500 mg PO DAILY 03/29/23 Multivitamin with Minerals [Multivitamins with Minerals] 1 each PO DAILY 03/29/23 Trazodone HCl 50 mg PO BEDTIME 03/29/23 Cinnamon Bark/Chromium Picolin [Cinnamon Plus Chromium Capsule] 1 each PO BID 06/16/24 Escitalopram Oxalate [Lexapro] 5 mg PO DAILY 06/16/24 Linagliptin [Tradjenta] 5 mg PO BEDTIME 06/16/24 Magnesium Oxide [Magnesium] 400 mg PO BID 06/16/24 Melatonin 10 mg PO BEDTIME PRN PRN 06/16/24 Metoprolol Tartrate [Lopressor*] 50 mg PO BID 06/16/24 [place]-3 Fatty Acids [[place]-3] 1 cap PO BID 06/16/24 Omeprazole [Prilosec] 40 mg PO NOON 06/16/24 Mupirocin Oint [Bactroban 2% Ointment*] 1 espinoza TOP DAILY 06/17/24 Nystatin 1 espinoza TOP BIDP PRN 06/17/24 Doxycycline Hyclate 100 mg PO BID 7 Days #14 tab 06/19/24 Hydrocodone 5/APAP 325 [[place] 5/325*] 1 tab PO Q4H PRN 3 Days #18 tab 06/19/24 - Past Medical/Surgical History Diabetic: Yes -: Diastolic CHF/ Pulmonary HTN -: HTN -: HLD -: CKD III (Dr. Hernandez/ [place]) -: Nephrolithiasis -: GERD -: Stroke 2006 -: [place] -: Afib -: CABG X3 -: precancerous mole removal from back. -: pacemaker Psychosocial/ Personal History: Lives at home with family - Family History Mother Medical History: Hypertension, Other (see notes) Notes: from brain tumors - Social History Smoking Status: Current every day smoker Alcohol use: No CD- Drugs: No Caffeine use: Yes Review of Systems 10-point ROS is otherwise unremarkable General: Weakness, Malaise Respiratory: SOB with Excertion Cardiovascular: Edema Physical Examination Temp Pulse Resp BP Pulse Ox 98.1 F 60 20 181/86 H 94 07/29/24 20:00 07/29/24 20:00 07/29/24 20:00 07/29/24 20:00 07/29/24 20:00 General: In no apparent distress, Oriented x3, Cooperative HEENT: Atraumatic Neck: Supple Respiratory: Clear to auscultation bilaterally, Normal air movement Cardiovascular: No edema, Regular rate/rhythm Gastrointestinal: Soft and benign, Non-distended Musculoskeletal: No clubbing, No contractures Integumentary: No rashes, No cyanosis Neurological: Normal speech Laboratory Data (last 24 hrs) 07/29/24 07/29/24 15:20 15:20 WBC 7.90 Hgb 10.4 L Hct 32.3 L Plt Count 243 Sodium 142 Potassium 3.4 L BUN 19 H Creatinine 1.80 H Glucose 102 Total Bilirubin 0.7 AST 15 ALT < 14 L Alkaline Phosphatase 90 Imagings Data: [id number] EXAMINATION: ONE VIEW CHEST XR CLINICAL INDICATION: DYSPNEA TECHNIQUE: Frontal chest projection is submitted. Examination is limited by patient positioning and technique. COMPARISON: 06/16/2024 FINDINGS: Moderate bilateral pulmonary opacities likely representing pulmonary edema or pneumonia. The heart is moderately enlarged in size. Single-lead pacer device noted. Trace pleural effusions. Sternotomy. IMPRESSION: Moderate CHF. Conclusions/Impression: Stage I DAVIN may be CRS CKD III -No NSAIDs Hypokalemia -Replete as ordered HTN with CKD/ CHF -Hydralazine prn Diastolic CHF, A/C Pulmonary HTN -Continue furosemide DM II with CKD -RISS Anemia in chronic illness -Monitor H&H Hospitalist and ER notes reviewed Thank you kindly for the consultation
[2024-07-29] MEDS: INSULIN REGULAR (HUMAN) 100 UNIT/ML SQ SCH (23:40)
[2024-07-29] MEDS ORDERED: ACETAMINOPHEN 325 MG TABLET PO PRN (23:40)
[2024-07-30] MEDS: APIXABAN 2.5 MG TABLET PO SCH (00:13)
[2024-07-30] MEDS: ATORVASTATIN 40 MG TAB PO SCH (00:13)
[2024-07-30] MEDS: HYDRALAZINE HCL 20 MG/ML VIAL IV PRN (01:06)
[2024-07-30] MEDS: ONDANSETRON 4 MG/2 ML VIAL IV PRN (02:05)
[2024-07-30 03:26] VITALS: BMI 29.8
[2024-07-30 07:06] LABS: Absolute Eosinophils 0.2 K/uL (0-0.5); Absolute Lymphocytes (CBC) 0.8 K/uL (0.7-4.9); Absolute Monocytes 0.6 K/uL (0.1-1.3); Absolute Neutrophil 7.9 K/uL (1.8-8.0); Basophils % 0.3 % (0-1.3); Eosinophils % 1.7 % (0-4.4); Hematocrit 29.2 % (39.6-49.0); Hemoglobin 9.8 g/dL (13.6-17.9); Lymphocytes % 8.3 % (15.3-44.8); MCH 31.9 pg (27.0-35.0); MCHC 33.6 g/dL (32.0-36.0); MPV 8.4 fL (7.6-11.3); Monocytes % 6.6 % (3.3-12.3); Neutrophils % 83.1 % (41.7-73.7); Nucleated Red Blood Cells % 0.1 % (0-0); Platelets 220 thou/uL (152-406); RBC Red Blood Cell Count 3.07 M/uL (4.33-5.43)
[2024-07-30 07:23] LABS: Albumin 3.3 g/dL (3.4-5.0); Alkaline Phosphatase 76 U/L (45-117); Anion Gap 6.2 mEq/L (5.0-15.0); BUN Blood Urea Nitrogen 19 mg/dL (7-18); Bicarbonate 34 mEq/L (21-32); Bilirubin Total 0.9 mg/dL (0.2-1.0); Globulin 3.3 g/dL (2.3-3.5); Glomerular Filtration Rate 49 ml/min (=/>90); Glucose Level 86 mg/dL (74-106); Magnesium 1.8 mg/dL (1.6-2.4); Potassium 3.2 mEq/L (3.5-5.1); Protein, Total 6.6 g/dL (6.4-8.2); Sodium Level 141 mEq/L (136-145)
[2024-07-30 07:24] LABS: ALT/SGPT < 14 U/L (16-61); AST/SGOT < 10 U/L (15-37)
[2024-07-30] MEDS: ASPIRIN EC 81 MG TAB PO SCH (08:31)
[2024-07-30] MEDS: FUROSEMIDE 40 MG/4 ML VIAL IV SCH (08:31)
--- NOTE | 2024-07-30 08:56 | P.PN ---
Date of Service: 07/30/24 Subjective: Some improvement in his respiratory status overnight Had a coughing fit followed by vomiting x 1 At that time heart rate increased to 180, improved once he settled down ROS: 10 point ROS as noted above, otherwise negative Physical exam GEN: Alert, oriented, NAD HEENT: Normal conjunctiva, sclera anicteric CV: Irregular rhythm, rate controlled A-fib, 3+ pitting edema bilateral lower extremities Pulm: Nonlabored respirations on nasal cannula ABD: Soft, nontender, nondistended MSK: No joint tenderness Integumentary: Chronic wound to back Neuro: Normal speech, normal affect Vitals reviewed Assessment: Acute on chronic diastolic congestive heart failure Chest pain rule out ACS Atrial fibrillation on chronic anticoagulation/pacemaker in place CKD 3 Diabetes mellitus type 2 Hypertension Hyperlipidemia History of CVA Plan: Acute on chronic diastolic congestive heart failure Chest pain rule out ACS Atrial fibrillation on chronic anticoagulation/pacemaker in place Cardiology, nephrology consult Echocardiogram ordered Takes Lasix 20 mg daily at home Increase Lasix to 40 mg IV twice daily for now monitor on telemetry-troponins trended flat Continue Eliquis CKD 3 Monitor renal function closely with diuresis Nephrology consulted Near baseline on admission, slight improvement overnight with diuresis Diabetes mellitus type 2 ACHS Accu-Chek, sliding scale insulin Hypertension Hyperlipidemia History of CVA Continue home medications DVT PPX: Continue Eliquis Code status: Full Discharge Plan: Home Plan to discharge in: 48 Hours Time Spent Managing Pts Care (In Minutes): 35
--- NOTE | 2024-07-30 13:11 | P.CNS ---
Date of Consult: 07/30/24 Chief Complaint: CHF exacerbation History of Present Illness: Patient with PMH of CAD s/p CABG, Atrial fibrillation, pacemaker placement, presented with worsening SOB and lower extremities edema, denies any other cardiac symptoms. Allergies No Known Drug Allergies Allergy (Verified 06/16/24 14:30) Unknown Home medications list reviewed: Yes Home Medications: Acetaminophen [8Hr Arthritis Pain Relief] 650 mg PO TIDP PRN 03/29/23 Acetaminophen with Codeine [Acetaminophen-Cod #3 Tablet] 1 each PO BIDP PRN 03/29/23 Allopurinol 300 mg PO DAILY 03/29/23 Apixaban [Eliquis *] 2.5 mg PO BID 03/29/23 Aspirin [Low Dose Aspirin EC] 81 mg PO DAILY 03/29/23 Atorvastatin Calcium [Lipitor] 40 mg PO BEDTIME 03/29/23 Cholecalciferol (Vitamin D3) [Vitamin D3] 25 mcg PO DAILY 03/29/23 Cider Vinegar [Apple Cider Vinegar] 1 tab PO BID 03/29/23 Docusate Sodium [Stool Softener] 250 mg PO BEDTIME 03/29/23 Doxazosin [Cardura*] 2 mg PO DAILY 03/29/23 Dulaglutide [Trulicity] 1.5 mg SQ EVERY 7TH DAY 03/29/23 Ferrous Sulfate [Ferrous Sulfate*] 325 mg PO BIDWM 03/29/23 Fluticasone [Flonase 50MCG Nasal [place]*] 1 spray NS DAILY 03/29/23 Furosemide [Lasix*] 20 mg PO DAILY 03/29/23 Isosorbide Mononitrate [Isosorbide Mononitrate ER] 30 mg PO DAILY 03/29/23 Metformin ER [Glucophage ER*] 500 mg PO DAILY 03/29/23 Multivitamin with Minerals [Multivitamins with Minerals] 1 each PO DAILY 03/29/23 Trazodone HCl 50 mg PO BEDTIME 03/29/23 Cinnamon Bark/Chromium Picolin [Cinnamon Plus Chromium Capsule] 1 each PO BID 06/16/24 Escitalopram Oxalate [Lexapro] 5 mg PO DAILY 06/16/24 Linagliptin [Tradjenta] 5 mg PO BEDTIME 06/16/24 Magnesium Oxide [Magnesium] 400 mg PO BID 06/16/24 Melatonin 10 mg PO BEDTIME PRN PRN 06/16/24 Metoprolol Tartrate [Lopressor*] 50 mg PO BID 06/16/24 [place]-3 Fatty Acids [[place]-3] 1 cap PO BID 06/16/24 Omeprazole [Prilosec] 40 mg PO NOON 06/16/24 Mupirocin Oint [Bactroban 2% Ointment*] 1 espinoza TOP DAILY 06/17/24 Nystatin 1 espinoza TOP BIDP PRN 06/17/24 Doxycycline Hyclate 100 mg PO BID 7 Days #14 tab 06/19/24 Hydrocodone 5/APAP 325 [[place] 5/325*] 1 tab PO Q4H PRN 3 Days #18 tab 06/19/24 - Past Medical/Surgical History Diabetic: Yes -: Diastolic CHF -: HTN -: HLD -: CKD III (Dr. Hernandez/ [place]) -: Nephrolithiasis -: GERD -: Stroke 2006 -: [place] -: A-fib -: CABG X3 -: precancerous mole removal from back. -: pacemaker Psychosocial/ Personal History: Lives at home with family - Family History Mother Medical History: Hypertension, Other (see notes) Notes: from brain tumors - Social History Smoking Status: Current every day smoker Alcohol use: No CD- Drugs: No Caffeine use: Yes Place of Residence: Home Review of Systems 10-point ROS is otherwise unremarkable Physical Examination Temp Pulse Resp BP Pulse Ox 98.1 F 68 16 143/76 H 97 07/30/24 12:00 07/30/24 12:00 07/30/24 12:00 07/30/24 12:00 07/30/24 12:00 General: Alert, In no apparent distress HEENT: Atraumatic, PERRLA, Mucous membr. moist/pink, EOMI, Sclerae nonicteric Neck: Supple, 2+ carotid pulse no bruit, No LAD, Without JVD or thyroid abnormality Respiratory: Clear to auscultation bilaterally, Normal air movement Cardiovascular: Regular rate/rhythm, Normal S1 S2 Gastrointestinal: Normal bowel sounds, No tenderness Musculoskeletal: No tenderness Integumentary: No rashes Neurological: Normal gait, Normal speech, Normal tone, Normal affect Lymphatics: No axilla or inguinal lymphadenopathy Laboratory Data (last 24 hrs) 07/29/24 07/29/24 15:20 15:20 WBC 7.90 Hgb 10.4 L Hct 32.3 L Plt Count 243 Sodium 142 Potassium 3.4 L BUN 19 H Creatinine 1.80 H Glucose 102 Total Bilirubin 0.7 AST 15 ALT < 14 L Alkaline Phosphatase 90 - Problems (1) Acute on chronic diastolic heart failure Current Visit: Yes Status: Acute Plan: Continue Lasix 40 mg IV BID Coreg 3.125 mg po BID Monitor input and output Monitor and correct electrolytes. (2) CAD (coronary artery disease) of artery bypass graft Current Visit: Yes Status: Acute Plan: continue ASA 81 mg daily Continue Lipitor 40 mg daily
--- NOTE | 2024-07-30 15:11 | ECHO ---
HEIGHT: 6 ft 0 in WEIGHT: 220 lb 0 oz DATE OF STUDY: 07/30/[address]: Rosendo Saini NP 2-DIMENSIONAL: YES M.MODE: YES DOPPLER: YES COLOR FLOW: YES TDS: NO PORTABLE: YES DEFINITY: NO BUBBLE STUDY: NO DIAGNOSIS: CONGESTIVE HEART FAILURE, DYSPNEA CARDIAC HISTORY: CATHERIZATION:YES SURGERY: YES PROSTHETIC VALVE: NO PACEMAKER: YES MEASUREMENTS (cm) DIASTOLIC (NORMALS) SYSTOLIC (NORMALS) IVSd 1.3 (0.6-1.2) LA Diam 4.3 (1.9-4.0) LVEF 60-65% LVIDd 4.6 (3.5-5.7) LVIDs 3.0 (2.0-3.5) %FS 34% LVPWd 1.3 (0.6-1.2) Ao Diam 3.0 (2.0-3.7) 2 DIMENSIONAL ASSESSMENT: RIGHT ATRIUM: NORMAL LEFT ATRIUM: NORMAL RIGHT VENTRICLE: NORMAL, PACEMAKER LEAD LEFT VENTRICLE: NORMAL TRICUSPID VALVE: MILD TRICUSPID REGURGITATION MITRAL VALVE: MILD MITRAL REGURGITATION PULMONIC VALVE: NORMAL AORTIC VALVE: MILD AORTIC STENOSIS PERICARDIAL EFFUSION: NONE AORTIC ROOT: NORMAL LEFT VENTRICULAR WALL MOTION: NORMAL. DOPPLER/COLOR FLOW: DIASTOLIC DYSFUNCTION. COMMENTS: 1. NORMAL LEFT VENTRICULAR SYSTOLIC FUNCTION. LEFT VENTRICULAR EJECTION FRACTION 60-65%. NORMAL WALL MOTION. 2. DIASTOLIC DYSFUNCTION. 3. MILDLY ELEVATED FILLING PRESSURE. RIGHT ATRIAL PRESSURE 10-15 mmHg. 4. MODERATE PULMONARY HYPERTENSION. RIGHT VENTRICULAR SYSTOLIC PRESSURE 50-55 mmHg. TECHNOLOGIST: BARB PATRICK
[2024-07-30] MEDS: carvediloL 3.125 MG TAB PO SCH (17:26)
[2024-07-31 06:36] LABS: Absolute Eosinophils 0.3 K/uL (0-0.5); Absolute Lymphocytes (CBC) 1.2 K/uL (0.7-4.9); Absolute Monocytes 0.6 K/uL (0.1-1.3); Absolute Neutrophil 4.9 K/uL (1.8-8.0); Basophils % 0.7 % (0-1.3); Hematocrit 30.9 % (39.6-49.0); Hemoglobin 10.1 g/dL (13.6-17.9); Lymphocytes % 16.5 % (15.3-44.8); MCH 31.1 pg (27.0-35.0); MCHC 32.7 g/dL (32.0-36.0); MCV 95.3 fL (80-100); MPV 8.3 fL (7.6-11.3); Monocytes % 8.5 % (3.3-12.3); Neutrophils % 70.3 % (41.7-73.7); Platelets 208 thou/uL (152-406); RBC Red Blood Cell Count 3.24 M/uL (4.33-5.43); Red Cell Distribution Width 14.2 % (12.1-15.2)
[2024-07-31 06:53] LABS: AST/SGOT 12 U/L (15-37); Albumin 3.3 g/dL (3.4-5.0); Albumin/Globulin Ratio 0.9 (1.1-1.8); Alkaline Phosphatase 73 U/L (45-117); BUN Blood Urea Nitrogen 22 mg/dL (7-18); Bicarbonate 33 mEq/L (21-32); Bilirubin Total 0.8 mg/dL (0.2-1.0); Globulin 3.6 g/dL (2.3-3.5); Glomerular Filtration Rate 40 ml/min (=/>90); Glucose Level 103 mg/dL (74-106); Magnesium 1.8 mg/dL (1.6-2.4); Protein, Total 6.9 g/dL (6.4-8.2); Sodium Level 140 mEq/L (136-145)
[2024-07-31 06:54] LABS: ALT/SGPT < 14 U/L (16-61)
--- NOTE | 2024-07-31 09:45 | P.PN ---
Date of Service: 07/31/24 Subjective: Improving, still with LUCIA but less No acute events overnight ROS: 10 point ROS as noted above, otherwise negative Physical exam GEN: Alert, oriented, NAD HEENT: Normal conjunctiva, sclera anicteric CV: Irregular rhythm, rate controlled A-fib, 1+ pitting edema bilateral lower extremities Pulm: Nonlabored respirations on nasal cannula ABD: Soft, nontender, nondistended MSK: No joint tenderness Integumentary: Chronic wound to back Neuro: Normal speech, normal affect Vitals reviewed Assessment: Acute on chronic diastolic congestive heart failure Chest pain rule out ACS Atrial fibrillation on chronic anticoagulation/pacemaker in place CKD 3 Diabetes mellitus type 2 Hypertension Hyperlipidemia History of CVA Plan: Acute on chronic diastolic congestive heart failure Chest pain rule out ACS Atrial fibrillation on chronic anticoagulation/pacemaker in place Cardiology, nephrology consult Echocardiogram shows 1. NORMAL LEFT VENTRICULAR SYSTOLIC FUNCTION. LEFT VENTRICULAR EJECTION FRACTION 60-65%. NORMAL WALL MOTION. 2. DIASTOLIC DYSFUNCTION. 3. MILDLY ELEVATED FILLING PRESSURE. RIGHT ATRIAL PRESSURE 10-15 mmHg. 4. MODERATE PULMONARY HYPERTENSION. RIGHT VENTRICULAR SYSTOLIC PRESSURE 50-55 mmHg. Takes Lasix 20 mg daily at home Increase Lasix to 40 mg IV twice daily for now monitor on telemetry-troponins trended flat Continue Eliquis CKD 3 Monitor renal function closely with diuresis Nephrology consulted Near baseline on admission Diabetes mellitus type 2 ACHS Accu-Chek, sliding scale insulin Hypertension Hyperlipidemia History of CVA Continue home medications DVT PPX: Continue Eliquis Code status: Full Discharge Plan: Home Plan to discharge in: 48 Hours Time Spent Managing Pts Care (In Minutes): 35
[2024-07-31] MEDS: POTASSIUM CL SA 10 MEQ TAB PO ONE (10:47)
--- NOTE | 2024-07-31 11:32 | P.PN ---
Subjective Date of Service: 07/31/24 Chief Complaint: CHF exacerbation Subjective: No new changes, No C/O voiced, Tolerating diet, Ambulating, Improving Review of Systems 10-point ROS is otherwise unremarkable Physical Examination - Vital Signs Temperature: 97.5 F Blood Pressure: 155/73 Pulse: 75 Respirations: 16 Pulse Ox (%): 95 - Physical Exam General: Alert, In no apparent distress HEENT: Atraumatic, PERRLA, EOMI Neck: Supple, JVD not distended Respiratory: Clear to auscultation bilaterally, Normal air movement Cardiovascular: Regular rate/rhythm, Normal S1 S2 Gastrointestinal: Normal bowel sounds, No tenderness Musculoskeletal: No tenderness Integumentary: No rashes Neurological: Normal speech, Normal tone, Normal affect Lymphatics: No axilla or inguinal lymphadenopathy - Studies Medications List Reviewed: Yes Assessment And Plan - Current Problems (Diagnosis) (1) Acute on chronic diastolic heart failure Current Visit: Yes Status: Acute Plan: Continue Lasix 40 mg IV BID Increase Coreg to 6.25 mg po BID Monitor input and output Monitor and correct electrolytes. (2) CAD (coronary artery disease) of artery bypass graft Current Visit: Yes Status: Acute Plan: continue ASA 81 mg daily Continue Lipitor 40 mg daily (3) HTN (hypertension) Current Visit: Yes Status: Acute Plan: continue Imdur 30 mg daily increase Coreg to 6.25 mg po BID (4) Atrial fibrillation Current Visit: Yes Status: Acute Plan: continue Eliquis 2.5 mg po BID Increase Coreg as above.
[2024-07-31] MEDS: GUAIFENESIN/DM 5 ML UCUP PO PRN (12:23)
[2024-07-31] MEDS: MUPIROCIN 2% OINT 22GM TUBE TOP SCH (17:52)
[2024-07-31] MEDS: BENZONATATE 100 MG CAP PO PRN (20:33)
--- NOTE | 2024-07-31 21:37 | P.PN ---
Date of Service: 07/31/24 Vital Signs Temp Pulse Resp BP Pulse Ox 98.1 F 81 19 181/99 H 98 07/31/24 20:00 07/31/24 20:00 07/31/24 20:00 07/31/24 20:00 07/31/24 20:00 Medications Acetaminophen (Acetaminophen 325 Mg Tablet) 650 mg PO Q4HP PRN PRN Reason: Pain scale 2-4 (Mild) Apixaban (Apixaban 2.5 Mg Tablet) 2.5 mg PO BID [facility] Last Admin: 07/31/24 20:33 Dose: 2.5 mg Aspirin (Aspirin Ec 81 Mg Tab) 81 mg PO DAILY [facility] Last Admin: 07/31/24 10:48 Dose: 81 mg Atorvastatin Calcium (Atorvastatin 40 Mg Tab) 40 mg PO BEDTIME [facility] Last Admin: 07/31/24 20:33 Dose: 40 mg Benzonatate (Benzonatate 100 Mg Cap) 100 mg PO Q6H PRN PRN Reason: COUGH Last Admin: 07/31/24 20:33 Dose: 100 mg Carvedilol (Carvedilol 3.125 Mg Tab) 3.125 mg PO BID 6AM 6PM [facility] Last Admin: 07/31/24 17:53 Dose: 3.125 mg Furosemide (Furosemide 40 Mg/4 Ml Vial) 40 mg IV BIDL [facility] Last Admin: 07/31/24 17:53 Dose: 40 mg Guaifenesin/Dextromethorphan (Guaifenesin/Dm 5 Ml Ucup) 5 ml PO Q6H PRN PRN Reason: COUGH Last Admin: 07/31/24 12:23 Dose: 5 ml Hydralazine HCl (Hydralazine Hcl 20 Mg/Ml Vial) 10 mg IV Q4HP PRN PRN Reason: Goal to achieve SBP in comment Last Admin: 07/31/24 20:33 Dose: 10 mg Insulin Human Regular (Insulin Regular (Human) 100 Unit/Ml) 0 unit SQ ACHS [facility]; Protocol Last Admin: 07/31/24 20:34 Dose: Not Given Isosorbide Mononitrate (Isosorbide Traill Sr 30 Mg Tab) 30 mg PO DAILY [facility] Mupirocin (Mupirocin 2% Oint 22gm Tube) 1 appl TOP DAILY [facility] Last Admin: 07/31/24 17:52 Dose: 1 appl Ondansetron HCl (Ondansetron 4 Mg/2 Ml Vial) 4 mg IV Q6HP PRN PRN Reason: NAUSEA / VOMITING Last Admin: 07/30/24 02:05 Dose: 4 mg Assessment/ Plan: Nephrology No dyspnea No chest pain Feeling better but reports LUCIA on his walk to the bathroom No acute events overnight Vitals, medications, blood work and imaging reviewed in the chart General: In no apparent distress, Oriented x3, Cooperative HEENT: Atraumatic Neck: Supple Respiratory: Clear to auscultation bilaterally, Normal air movement Cardiovascular: No edema, Regular rate/rhythm Gastrointestinal: Soft and benign, Non-distended Musculoskeletal: No clubbing, No contractures Integumentary: No rashes, No cyanosis Neurological: Normal speech Laboratory Data (last 24 hrs) 07/29/24 07/29/24 15:20 15:20 WBC 7.90 Hgb 10.4 L Hct 32.3 L Plt Count 243 Sodium 142 Potassium 3.4 L BUN 19 H Creatinine 1.80 H Glucose 102 Total Bilirubin 0.7 AST 15 ALT < 14 L Alkaline Phosphatase 90 Imagings Data: [id number] EXAMINATION: ONE VIEW CHEST XR CLINICAL INDICATION: DYSPNEA TECHNIQUE: Frontal chest projection is submitted. Examination is limited by patient positioning and technique. COMPARISON: 06/16/2024 FINDINGS: Moderate bilateral pulmonary opacities likely representing pulmonary edema or pneumonia. The heart is moderately enlarged in size. Single-lead pacer device noted. Trace pleural effusions. Sternotomy. IMPRESSION: Moderate CHF. Conclusions/Impression: Stage I DAVIN may be CRS CKD III -No NSAIDs Hypokalemia -Replete as ordered HTN with CKD/ CHF -Hydralazine prn Diastolic CHF, A/C Pulmonary HTN -Continue furosemide DM II with CKD -RISS Anemia in chronic illness -Monitor H&H Hospitalist note reviewed Case reviewed with Dr. Dumont
[2024-08-01 06:00] LABS: Absolute Basophils 0.1 K/uL (0-0.5); Absolute Eosinophils 0.3 K/uL (0-0.5); Absolute Lymphocytes (CBC) 1.3 K/uL (0.7-4.9); Absolute Monocytes 0.7 K/uL (0.1-1.3); Absolute Neutrophil 5.5 K/uL (1.8-8.0); Basophils % 0.8 % (0-1.3); Hematocrit 32.5 % (39.6-49.0); Hemoglobin 10.6 g/dL (13.6-17.9); Lymphocytes % 16.1 % (15.3-44.8); MCH 31.1 pg (27.0-35.0); MCHC 32.7 g/dL (32.0-36.0); MCV 94.9 fL (80-100); MPV 8.1 fL (7.6-11.3); Monocytes % 8.9 % (3.3-12.3); Neutrophils % 70.2 % (41.7-73.7); Platelets 229 thou/uL (152-406); RBC Red Blood Cell Count 3.42 M/uL (4.33-5.43); Red Cell Distribution Width 14.2 % (12.1-15.2)
[2024-08-01 06:29] LABS: AST/SGOT 13 U/L (15-37); Albumin 3.4 g/dL (3.4-5.0); Albumin/Globulin Ratio 0.9 (1.1-1.8); Alkaline Phosphatase 77 U/L (45-117); Anion Gap 7.1 mEq/L (5.0-15.0); BUN Blood Urea Nitrogen 27 mg/dL (7-18); Bicarbonate 34 mEq/L (21-32); Globulin 3.6 g/dL (2.3-3.5); Glomerular Filtration Rate 41 ml/min (=/>90); Glucose Level 155 mg/dL (74-106); Magnesium 1.9 mg/dL (1.6-2.4); Potassium 3.1 mEq/L (3.5-5.1); Sodium Level 137 mEq/L (136-145)
[2024-08-01 06:38] LABS: ALT/SGPT < 14 U/L (16-61)
[2024-08-01] MEDS: ISOSORBIDE MONO SR 30 MG TAB PO SCH (08:19)
[2024-08-01] MEDS: POTASSIUM CL SA 10 MEQ TAB PO ONE ×2 (10:46→16:57)
--- NOTE | 2024-08-01 13:48 | P.PN ---
Subjective Date of Service: 08/01/24 Chief Complaint: CHF exacerbation Subjective: No new changes, No C/O voiced, Tolerating diet, Ambulating, Improving Review of Systems 10-point ROS is otherwise unremarkable Physical Examination - Vital Signs Temperature: 98.8 F Blood Pressure: 137/75 Pulse: 72 Respirations: 18 Pulse Ox (%): 92 - Physical Exam General: Alert, In no apparent distress HEENT: Atraumatic, PERRLA, EOMI Neck: Supple, JVD not distended Respiratory: Clear to auscultation bilaterally, Normal air movement Cardiovascular: Regular rate/rhythm, Normal S1 S2 Gastrointestinal: Normal bowel sounds, No tenderness Musculoskeletal: No tenderness Integumentary: No rashes Neurological: Normal speech, Normal tone, Normal affect Lymphatics: No axilla or inguinal lymphadenopathy - Studies Medications List Reviewed: Yes Assessment And Plan - Current Problems (Diagnosis) (1) Acute on chronic diastolic heart failure Current Visit: Yes Status: Acute Plan: Switch to Lasix 40 mg po daily Increase Coreg to 6.25 mg po BID Monitor input and output Monitor and correct electrolytes. (2) CAD (coronary artery disease) of artery bypass graft Current Visit: Yes Status: Acute Plan: continue ASA 81 mg daily Continue Lipitor 40 mg daily (3) HTN (hypertension) Current Visit: Yes Status: Acute Plan: continue Imdur 30 mg daily increase Coreg to 6.25 mg po BID Cardiology will sign off. (4) Atrial fibrillation Current Visit: Yes Status: Acute Plan: continue Eliquis 2.5 mg po BID Increase Coreg as above.
--- NOTE | 2024-08-01 15:10 | EKG ---
Test Date: 2024-07-30 Test Time: 23:11:59 Gearcase Assembler: PVAL MEASUREMENT RESULTS: Intervals: Rate: 78 ID: QRSD: [id number] QT: 418 QTc: 476 [place]: P: ID: QRS: 4 T: 10 INTERPRETIVE STATEMENTS: Atrial fibrillation with premature ventricular or aberrantly conducted complexes Nonspecific T wave abnormality, probably digitalis effect Prolonged QT Abnormal ECG Compared to ECG 07/30/2024 02:24:12 Ventricular premature complex(es) now present T-wave abnormality now present Ventricular-paced complex(es) or rhythm no longer present ST (T wave) deviation no longer present Possible ischemia no longer present Electronically Signed On 08-01-24 15:07:34 FELLING BUCKING SUPERVISOR by Moises Trimble
--- NOTE | 2024-08-01 15:13 | EKG ---
Test Date: 2024-07-29 Test Time: 15:31:25 Excavation Laborer: PH MEASUREMENT RESULTS: Intervals: Rate: 70 MT: QRSD: 98 QT: 510 QTc: 550 [place]: P: MT: QRS: -14 T: 46 INTERPRETIVE STATEMENTS: Atrial fibrillation with occasional ventricular-paced complexes and with premature ventricular or aberrantly conducted complexe Nonspecific T wave abnormality Prolonged QT Abnormal ECG Compared to ECG 06/20/2024 09:12:02 Ventricular premature complex(es) now present T-wave abnormality now present Prolonged QT interval now present ST (T wave) deviation no longer present Possible ischemia no longer present Electronically Signed On 08-01-24 15:09:43 PARADICHLOROBENZENE TENDER by Moises Trimble
--- NOTE | 2024-08-01 18:12 | P.PN ---
Nephrology note Delayed entry note, pt seen earlier this AM No acute complaints, reports breathing easier although still on O2 when seen, peripheral edema improved Vitals, medications, blood work and imaging reviewed in the chart General: In no apparent distress HEENT: Atraumatic, sclera anicteric, on O2 Neck: Supple Respiratory: non tachypnec, no wheezing Cardiovascular: No sig edema, mostly Regular rate/rhythm Gastrointestinal: Soft, ND, NT Musculoskeletal: No muscle spasms Integumentary: No rashes Neurological: Normal speech, awake, alert Conclusions/Impression: Stage I DAVIN multifactorial on underlying CKD Stage III unspecified -Relatively stable Cr levels with diuresis Hypokalemia -Replete K, start Spironolactone 25 mg qd HTN with CKD/ CHF -Target BP < 130/80 Diastolic CHF, A/C Pulmonary HTN -Transition to PO lasix by tmwr
--- NOTE | 2024-08-01 19:38 | P.PN ---
Date of Service: 08/01/24 Subjective: Awake and conversing well Able to wean off oxygen Ambulating with satisfactory oxygenation Plan to dc in the AM, monitor off oxygen overnight ROS: 10 point ROS as noted above, otherwise negative Physical exam GEN: AAO x3, NAD HEENT: Normal conjunctiva, sclera anicteric CV: Irregular rhythm, rate controlled A-fib, 1+ pitting edema bilateral lower extremities Pulm: Nonlabored respirations, on room air ABD: Soft on palpation, ND/NT MSK: No joint tenderness Integumentary: Chronic wound to back Neuro: Normal speech, normal affect Vitals reviewed Assessment: Acute on chronic diastolic congestive heart failure Chest pain rule out ACS Atrial fibrillation on chronic anticoagulation/pacemaker in place CKD 3 Diabetes mellitus type 2 Hypertension Hyperlipidemia History of CVA Plan: Acute on chronic diastolic congestive heart failure Chest pain rule out ACS Atrial fibrillation on chronic anticoagulation/pacemaker in place Cardiology, nephrology consult Echocardiogram shows 1. NORMAL LEFT VENTRICULAR SYSTOLIC FUNCTION. LEFT VENTRICULAR EJECTION FRACTION 60-65%. NORMAL WALL MOTION. 2. DIASTOLIC DYSFUNCTION. 3. MILDLY ELEVATED FILLING PRESSURE. RIGHT ATRIAL PRESSURE 10-15 mmHg. 4. MODERATE PULMONARY HYPERTENSION. RIGHT VENTRICULAR SYSTOLIC PRESSURE 50-55 mmHg. Takes Lasix 20 mg daily at home Increase Lasix to 40 mg IV twice daily for now monitor on telemetry-troponins trended flat Continue Eliquis CKD 3 Monitor renal function closely with diuresis Nephrology consulted Near baseline on admission Diabetes mellitus type 2 ACHS Accu-Chek, sliding scale insulin Hypertension Hyperlipidemia History of CVA Continue home medications DVT PPX: Continue Eliquis Code status: Full Discharge Plan: Home Plan to discharge in: 48 Hours
[2024-08-02 06:30] LABS: Absolute Basophils 0.1 K/uL (0-0.5); Absolute Eosinophils 0.3 K/uL (0-0.5); Absolute Lymphocytes (CBC) 1.6 K/uL (0.7-4.9); Absolute Monocytes 0.8 K/uL (0.1-1.3); Absolute Neutrophil 5.6 K/uL (1.8-8.0); Basophils % 0.7 % (0-1.3); Eosinophils % 3.5 % (0-4.4); Hematocrit 32.6 % (39.6-49.0); Lymphocytes % 19.2 % (15.3-44.8); MCH 31.5 pg (27.0-35.0); MCHC 33.8 g/dL (32.0-36.0); MCV 93.2 fL (80-100); MPV 8.3 fL (7.6-11.3); Monocytes % 9.9 % (3.3-12.3); Neutrophils % 66.7 % (41.7-73.7); Nucleated Red Blood Cells % 0.2 % (0-0); Platelets 296 thou/uL (152-406); Red Cell Distribution Width 14.4 % (12.1-15.2)
[2024-08-02 06:45] LABS: AST/SGOT 20 U/L (15-37); Albumin 3.6 g/dL (3.4-5.0); Alkaline Phosphatase 81 U/L (45-117); Anion Gap 10.1 mEq/L (5.0-15.0); BUN Blood Urea Nitrogen 32 mg/dL (7-18); Bicarbonate 31 mEq/L (21-32); Globulin 3.7 g/dL (2.3-3.5); Glomerular Filtration Rate 38 ml/min (=/>90); Glucose Level 153 mg/dL (74-106); Potassium 3.1 mEq/L (3.5-5.1); Protein, Total 7.3 g/dL (6.4-8.2); Sodium Level 136 mEq/L (136-145)
[2024-08-02 06:48] LABS: ALT/SGPT < 14 U/L (16-61)
[2024-08-02] MEDS: SPIRONOLACTONE 25 MG TABLET PO SCH (08:41)
[2024-08-02] MEDS: POTASSIUM CL SA 10 MEQ TAB PO ONE (08:41)
[2024-08-02] MEDS: FUROSEMIDE 40 MG TABLET PO SCH (08:42)
--- NOTE | 2024-08-02 10:27 | P.PN ---
Date of Service: 08/02/24 Subjective: Awake and feeling well remained off supplemental oxygen overnight BP goal to be < 130/80 changes to BP meds have been added ROS: 10 point ROS as noted above, otherwise negative Physical exam GEN: AAO x3, NAD HEENT: Normal conjunctiva, sclera anicteric CV: Irregular rhythm, rate controlled A-fib, 1+ pitting edema bilateral lower extremities Pulm: Nonlabored respirations, on room air ABD: Soft on palpation, ND/NT MSK: No joint tenderness Integumentary: Chronic wound to back Neuro: Normal speech, normal affect Vitals reviewed Assessment: Acute on chronic diastolic congestive heart failure Chest pain rule out ACS Atrial fibrillation on chronic anticoagulation/pacemaker in place CKD 3 Diabetes mellitus type 2 Hypertension Hyperlipidemia History of CVA Plan: Acute on chronic diastolic congestive heart failure Chest pain rule out ACS Atrial fibrillation on chronic anticoagulation/pacemaker in place Cardiology, nephrology consult Echocardiogram shows 1. NORMAL LEFT VENTRICULAR SYSTOLIC FUNCTION. LEFT VENTRICULAR EJECTION FRACT ION 60-65%. NORMAL WALL MOTION. 2. DIASTOLIC DYSFUNCTION. 3. MILDLY ELEVATED FILLING PRESSURE. RIGHT ATRIAL PRESSURE 10-15 mmHg. 4. MODERATE PULMONARY HYPERTENSION. RIGHT VENTRICULAR SYSTOLIC PRESSURE 50-55 mmHg. Takes Lasix 20 mg daily at home Increase Lasix to 40 mg IV twice daily for now monitor on telemetry-troponins trended flat Continue Eliquis CKD 3 Monitor renal function closely with diuresis Nephrology consulted Near baseline on admission Diabetes mellitus type 2 ACHS Accu-Chek, sliding scale insulin Hypertension -Coreg 6.25 mg PO BID started 08/02 -Spironolactone 25 mg daily -BP goal < 130/80 Hyperlipidemia History of CVA Continue home medications DVT PPX: Continue Eliquis Code status: Full Discharge Plan: Home Plan to discharge in: 48 Hours
[2024-08-02 12:26] VITALS: TEMP 98.1
--- NOTE | 2024-08-02 15:30 | P.DS ---
Admission Date: 07/29/24 Discharge Date: 08/02/24 Disposition: DC HOME/HOME HEALTH CARE Discharge Condition: GOOD Reason for Admission: CHF exacerbation Brief History of Present Illness: Diagnosis Acute on chronic diastolic congestive heart failure Chest pain rule out ACS Atrial fibrillation on chronic anticoagulation/pacemaker in place CKD 3 Diabetes mellitus type 2 Hypertension Hyperlipidemia History of CVA HPI 07/29/24 Devon Feliz is a 74-year-old male with history of diabetes mellitus type 2, hypertension, CKD, CAD with previous CABG, pacemaker in place, chronic diastolic congestive heart failure, atrial fibrillation on chronic anticoagulation presents the emergency department with 1 week of worsening dyspnea on exertion, orthopnea, lower extremity edema. He was here at the end of May and at that time he was taken off of the amiloride and ramipril as he was in for an acute kidney injury. He has been doing well until the last 1 week when he had the symptoms. He was evaluated in the emergency department his labs are significant for a BNP of 14,823 creatinine 1.8 which is near baseline initial high-sensitivity troponin 21.3 chest x-ray showing moderate CHF pattern. ED provider wishes to admit patient for further evaluation and management of CHF exacerbation Hospital Course: Devon Feliz is a 74 year old male with pmhx Physical exam GEN: AAO x3, NAD HEENT: Normal conjunctiva, sclera anicteric CV: Irregular rhythm, rate controlled A-fib, 1+ pitting edema bilateral lower extremities Pulm: Nonlabored respirations, on room air ABD: Soft on palpation, ND/NT MSK: No joint tenderness Integumentary: Chronic wound to back Neuro: Normal speech, normal affect Vital Signs/Physical Exam: Temp Pulse Resp BP Pulse Ox 98.1 F 76 20 133/78 96 08/02/24 12:00 08/02/24 12:00 08/02/24 12:00 08/02/24 12:00 08/02/24 12:00 Laboratory Data at Discharge: WBC 8.40 thou/uL (4.3-10.9) 08/02/24 05:10 Hgb 11.0 g/dL (13.6-17.9) L 08/02/24 05:10 Hct 32.6 % (39.6-49.0) L 08/02/24 05:10 Plt Count 296 thou/uL (152-406) D 08/02/24 05:10 Sodium 136 mEq/L (136-145) 08/02/24 05:10 Potassium Cancelled 08/02/24 15:00 BUN 32 mg/dL (7-18) H 08/02/24 05:10 Creatinine 1.86 mg/dL (0.70-1.30) H 08/02/24 05:10 Glucose 153 mg/dL (74-106) H 08/02/24 05:10 Magnesium 2.0 mg/dL (1.6-2.4) 08/02/24 05:10 Total Bilirubin 1.0 mg/dL (0.2-1.0) 08/02/24 05:10 AST 20 U/L (15-37) 08/02/24 05:10 ALT < 14 U/L (16-61) L 08/02/24 05:10 Alkaline Phosphatase 81 U/L (45-117) 08/02/24 05:10 Home Medications: Acetaminophen [8Hr Arthritis Pain Relief] 650 mg PO TIDP PRN 03/29/23 Acetaminophen with Codeine [Acetaminophen-Cod #3 Tablet] 1 each PO BIDP PRN 03/29/23 Allopurinol 300 mg PO DAILY 03/29/23 Apixaban [Eliquis *] 2.5 mg PO BID 03/29/23 Aspirin [Low Dose Aspirin EC] 81 mg PO DAILY 03/29/23 Atorvastatin Calcium [Lipitor] 40 mg PO BEDTIME 03/29/23 Cholecalciferol (Vitamin D3) [Vitamin D3] 25 mcg PO DAILY 03/29/23 Cider Vinegar [Apple Cider Vinegar] 1 tab PO BID 03/29/23 Docusate Sodium [Stool Softener] 250 mg PO BEDTIME 03/29/23 Doxazosin [Cardura*] 2 mg PO DAILY 03/29/23 Dulaglutide [Trulicity] 1.5 mg SQ EVERY 7TH DAY 03/29/23 Ferrous Sulfate [Ferrous Sulfate*] 325 mg PO BIDWM 03/29/23 Fluticasone [Flonase 50MCG Nasal [place]*] 1 spray NS DAILY 03/29/23 Furosemide [Lasix*] 20 mg PO DAILY 03/29/23 Isosorbide Mononitrate [Isosorbide Mononitrate ER] 30 mg PO DAILY 03/29/23 Metformin ER [Glucophage ER*] 500 mg PO DAILY 03/29/23 Multivitamin with Minerals [Multivitamins with Minerals] 1 each PO DAILY Trazodone HCl 50 mg PO BEDTIME 03/29/23 Cinnamon Bark/Chromium Picolin [Cinnamon Plus Chromium Capsule] 1 each PO BID 06/16/24 Escitalopram Oxalate [Lexapro] 5 mg PO DAILY 06/16/24 Linagliptin [Tradjenta] 5 mg PO BEDTIME 06/16/24 Magnesium Oxide [Magnesium] 400 mg PO BID 06/16/24 Melatonin 10 mg PO BEDTIME PRN PRN 06/16/24 Metoprolol Tartrate [Lopressor*] 50 mg PO BID 06/16/24 [place]-3 Fatty Acids [[place]-3] 1 cap PO BID 06/16/24 Omeprazole [Prilosec] 40 mg PO NOON 06/16/24 Mupirocin Oint [Bactroban 2% Ointment*] 1 espinoza TOP DAILY 06/17/24 Nystatin 1 espinoza TOP BIDP PRN 06/17/24 Doxycycline Hyclate 100 mg PO BID 7 Days #14 tab 06/19/24 Hydrocodone 5/APAP 325 [[place] 5/325*] 1 tab PO Q4H PRN 3 Days #18 tab 06/19/24 Apixaban [Eliquis *] 2.5 mg PO BID 08/02/24 Aspirin [Aspirin EC 81 MG] 81 mg PO DAILY 30 Days #30 tab 08/02/24 Atorvastatin Calcium [Lipitor] 40 mg PO BEDTIME tab 08/02/24 Furosemide [Lasix*] 40 mg PO DAILY 30 Days #30 tab 08/02/24 Potassium Chloride [K-Dur] 20 meq PO DAILY 30 Days #30 tab 08/02/24 Spironolactone [Aldactone*] 25 mg PO DAILY 30 Days #30 tab 08/02/24 carvediloL [Coreg*] 6.25 mg PO BID 30 Days #60 tab 08/02/24 New Medications: Spironolactone [Aldactone*] 25 mg PO DAILY 30 Days #30 tab Aspirin [Aspirin EC 81 MG] 81 mg PO DAILY 30 Days #30 tab carvediloL [Coreg*] 6.25 mg PO BID 30 Days #60 tab Potassium Chloride [K-Dur] 20 meq PO DAILY 30 Days #30 tab Furosemide [Lasix*] 40 mg PO DAILY 30 Days #30 tab Physician Discharge Instructions: 1. Please call and schedule an appointment with your PCP in one week -refills for medications will be provided by your PCP 2. Please call and schedule an appointment with Dr. Duncan for continued kidney management -blood pressure goal is 130/80 3. Please call and schedule and appointment with Dr. Trimble for cardiac health -adjustments were made to your medications and will be followed by cardiology 3. continue Renal diet 4. fall precautions as you recover 5. please return to the ED if symptoms worsen New or changed medications Coreg 6.25 mg by mouth twice daily Lasix 40 mg daily Potassium (K-Dur) 20 mEq daily- take potassium while taking lasix Aldactone 25 mg daily Continue medications prescribed by outside providers including Eliquis 2.5 mg twice daily Imdur 30 mg daily Home Health: [facility] P: [phone] F: [phone] Diet: Renal Activity: Fall precautions Followup: Everett Hernandez DO [Primary Care Provider] - Moises Trimble MD [ACTIVE - CAN ADMIT] -
[2024-08-02 16:27] VITALS: BP 145/76
[2024-08-02 17:22] VITALS: O2SAT 97
--- NOTE | 2024-08-02 20:49 | P.PN ---
Date of Service: 08/02/24 Vital Signs Temp Pulse Resp BP Pulse Ox 98.1 F 75 22 H 145/76 H 97 08/02/24 16:00 08/02/24 16:00 08/02/24 16:00 08/02/24 16:00 08/02/24 16:00 Assessment/ Plan: Nephrology No dyspnea No chest pain Feeling better but reports LUCIA on his walk to the bathroom No acute events overnight Vitals, medications, blood work and imaging reviewed in the chart General: In no apparent distress, Oriented x3, Cooperative HEENT: Atraumatic Neck: Supple Respiratory: Clear to auscultation bilaterally, Normal air movement Cardiovascular: No edema, Regular rate/rhythm Gastrointestinal: Soft and benign, Non-distended Musculoskeletal: No clubbing, No contractures Integumentary: No rashes, No cyanosis Neurological: Normal speech Laboratory Data (last 24 hrs) 07/29/24 07/29/24 15:20 15:20 WBC 7.90 Hgb 10.4 L Hct 32.3 L Plt Count 243 Sodium 142 Potassium 3.4 L BUN 19 H Creatinine 1.80 H Glucose 102 Total Bilirubin 0.7 AST 15 ALT < 14 L Alkaline Phosphatase 90 Imagings Data: [id number] EXAMINATION: ONE VIEW CHEST XR CLINICAL INDICATION: DYSPNEA TECHNIQUE: Frontal chest projection is submitted. Examination is limited by patient positioning and technique. COMPARISON: 06/16/2024 FINDINGS: Moderate bilateral pulmonary opacities likely representing pulmonary edema or pneumonia. The heart is moderately enlarged in size. Single-lead pacer device noted. Trace pleural effusions. Sternotomy. IMPRESSION: Moderate CHF. Conclusions/Impression: Stage I DAVIN may be CRS CKD III -No NSAIDs Hypokalemia -Replete as ordered -Continue spironolactone HTN with CKD/ CHF -Hydralazine prn Diastolic CHF, A/C Pulmonary HTN -Continue furosemide and spironolactone DM II with CKD -RISS Anemia in chronic illness -Monitor H&H Hospitalist note reviewed Case reviewed with Dr. Dumont
[2024-08-02] MEDS ORDERED: carvediloL 6.25 MG TAB PO SCH (21:00)
--- NOTE | 2024-08-05 08:58 | EKG ---
Test Date: 2024-07-30 Test Time: 23:15:24 Trolley Wire Installer: PVAL MEASUREMENT RESULTS: Intervals: Rate: 83 [place]: QRSD: 92 QT: 338 QTc: 397 [place]: P: [place]: QRS: 5 T: 81 INTERPRETIVE STATEMENTS: Atrial fibrillation with premature ventricular or aberrantly conducted complexes Nonspecific ST and T wave abnormality, probably digitalis effect Abnormal ECG Compared to ECG 07/30/2024 23:11:59 ST (T wave) deviation now present T-wave abnormality no longer present Prolonged QT interval no longer present Electronically Signed On 08-05-24 08:56:16 BLOWING ENGINEER by Moises Trimble
--- NOTE | 2024-08-05 08:59 | EKG ---
Test Date: 2024-07-30 Test Time: 02:24:12 Gun Profiler: 33 MEASUREMENT RESULTS: Intervals: Rate: 76 [place]: QRSD: 94 QT: 532 QTc: 598 [place]: P: [place]: QRS: -4 T: 105 INTERPRETIVE STATEMENTS: Demand pacemaker, interpretation is based on intrinsic rhythm Undetermined rhythm ST & T wave abnormality, consider lateral ischemia Prolonged QT Abnormal ECG Compared to ECG 07/29/2024 15:31:25 ST (T wave) deviation now present Possible ischemia now present Atrial fibrillation no longer present Ventricular premature complex(es) no longer present T-wave abnormality no longer present Electronically Signed On 08-05-24 08:56:33 BRUSH HEAD MAKER by Moises Trimble
== END 2024-08-02 17:50 | disposition home health service (06) | DRG 291 ==
LOC: ER 14:51 → ERHOLD 16:37 → 4TH 17:21
PROVIDERS: ADMIT Hospitalist; ATTEND Hospitalist
DX: I13.0 Hypertensive heart and chronic kidney disease with heart failure and stage 1 through stage 4 chronic kidney disease, or unspecified chronic kidney disease (principal); I50.33 Acute on chronic diastolic (congestive) heart failure; N17.9 Acute kidney failure, unspecified; N18.30 Chronic kidney disease, stage 3 unspecified; E11.22 Type 2 diabetes mellitus with diabetic chronic kidney disease; D63.1 Anemia in chronic kidney disease; E78.5 Hyperlipidemia, unspecified; E87.6 Hypokalemia; I48.91 Unspecified atrial fibrillation; I27.20 Pulmonary hypertension, unspecified; K21.9 Gastro-esophageal reflux disease without esophagitis; I25.10 Atherosclerotic heart disease of native coronary artery without angina pectoris; F17.200 Nicotine dependence, unspecified, uncomplicated; Z95.0 Presence of cardiac pacemaker; Z95.1 Presence of aortocoronary bypass graft; Z79.01 Long term (current) use of anticoagulants; Z79.82 Long term (current) use of aspirin; Z79.84 Long term (current) use of oral hypoglycemic drugs; Z86.73 Personal history of transient ischemic attack (TIA), and cerebral infarction without residual deficits; Z79.899 Other long term (current) drug therapy
CPT/HCPCS: 36415; 71045; 80048; 80053; 80076; 82947; 83735; 83880; 84132; 84484; 85025; 93005; 93306; 94010; 96374; 99285; J0360; J1940; J2405